=== PATIENT | male | born 1960 | race Caucasian/White ===

== ENCOUNTER 2024-08-29 14:33 | Outpatient (CLI) | payer MEDICARE, SELFPAY ==
--- NOTE | ~2024-08-29 | CT_ITS ---
CT of the Abdomen and Pelvis: Indication: Hematospermia Technique: 2.5 mm axial scans were obtained through the abdomen and pelvis following intravenous adm inistration of 100 cc of Omnipaque 350. Dose reduction technique was used on this scan by utilizing a utomated exposure control and iterative reconstruction technique. The dose-length product (DLP) was 6 75.31 mGy-cm. Findings: Scans through the lung bases are unremarkable. The liver, spleen, pancreas, gallbladder, adrenals and right kidney are within normal limits. 9 mm no nobstructing left renal stone present. There are atherosclerotic calcifications of the aorta. No lym phadenopathy. No bowel obstruction or bowel wall thickening. There is no evidence to suggest acute appendicitis. Images through the pelvis were performed. Urinary bladder unremarkable. Prostate gland is enlarged. Impression: 9 mm nonobstructing left renal stone. Enlarged prostate gland. Reviewed, dictated and finalized at [facility]. Impression: 9 mm nonobstructing left renal stone. Enlarged prostate gland.
--- OUTSIDE RECORDS SUMMARY | 2024-08-29 14:39 | XMS_ITS | Clinical Summary ---
Author Organization [facility] Address [address] [place] [address] Care Team Providers Care Dock Superintendent Name Role Phone Unavailable Primary Care Provider Unavailabl e Source Comments [facility],non-owned Affiliates and Associated Physician Practices is amultiple site organization consisting of ambulatory clinics and hospital sitesin [place], [place], [place] and [place]. This disclosure is being madepursuant to the Care Everywhere program and may not contain all information available regarding this patient. 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 Gender Identity Not on file Sexual Orientation Not on file Plan of Treatment Health Maintenance Due Date Last Done Comments COLOGUARD (AGES 45-75) - COL ON CA SCREENING 1960 COLON MONITORING 1960 COLONOSCOPY - COLON CA SCREENING 1960 CT COLONOGRAPHY - COLON CA SCREENING 1960 Colorectal Cancer Screening 1960 FIT - COLON CA SCREENING 1958 FLEX SIG - COLON CA SCREENING 1958 LIPID TESTING 1960 HEPATITIS C SCREENING 08/13/1976 DTAP/TDAP/TD VACCINES (1 - Tdap) 1977 PNEUMOCOCCAL VACCINE 50+ (1 of 1 - PCV) 2008 ZOSTER VACCINE (1 of 2) 2008 COVID-19 VACCINE ( - 2023-2 5 season) 2023 DEPRESSION SCREENING 02/15/2024 INFLUENZA VACCINE (#1) 2024 Respiratory Syncytial Virus (RSV) Vaccine Pt: or over 60 yrs (1 - 1-dose 75+ series) 2033 HEPATITIS B VACCINE Aged Out No longe r eligible based on patient's age to complete this topic HIB VACCINE Aged Out No longer eligi ble based on patient's age to complete this topic HPV VACCINE Aged Out No longer eligi ble based on patient's age to complete this topic MENINGOCOCCAL (Group B) VACC INE SHARED DECISION-MAKING Aged Out No longer eligibl e based on patient's age to complete this topic MENINGOCOCCAL GROUPS A/C/Y/W VACCINE Aged Out No longer eligible b ased on patient's age to complete this topic Insurance [employer]
--- OUTSIDE RECORDS SUMMARY | 2024-08-29 14:40 | XMS_ITS | Encounter Summary ---
Author Organization [facility] Address [address] [place] [address] Care Team Providers Care Machine Grinder Name Role Phone Unavailable Primary Care Provider Unavailabl e Encounter Details Date Type Department Care Team (Late st Contact Info) Description 08/22/2023 Lab Requisition [facility] - DermPath Lab [address] [place] [id number] Trav Snowden MD [address] [place] [address] Social History Tobacco Use Types Packs/Day Years Used Date Smoking Tobacco: Never Assessed Sex and Gender Information Value Date Recorded Sex Assigned at Not on file 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 Gender Identity Not on file Sexual Orientation Not on file documented as of this encounter Plan of Treatment Not on file documented as of this encounter Procedures Procedure Name Priority Date/Time Associated Diagnosis Comments DERMATOPATHOLOGY Routine 08/22/2023 12:0 0 AM CDT documented in this encounter Results * DERMATOPATHOLOGY (08/22/2023 12:00 AM CDT) Case Report Dermatopathology Report Case: [id number] Authorizing Provider: Trav Snowden MD Collected: 08/22/2023 12:00 AM Ordering Location: [facility] - Received: 08/22/2023 03:22 PM DermPath Lab Pathologist: Jen Carrillo MD Specimens: A) - Skin, crown of scalp B) - Skin, right mid forehead 4:50 PM CDT DERMATOPATHOLOGY LABORATORY Final Diagnosis Specimen A. SKIN, crown of scalp: SUPERFICIAL PERIVASCULAR AND PERIFOLLICULAR LYMPHOCYTIC INFILTRATE (L98.9) (see microscopic description and comment) Specimen B. 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 The specimen consists of a punch biopsy measuring 3x2x4 mm. Jar 0. Specimen B: Received is one formalin filled container labeled with the patient's name and designated right mid forehead. The specimen consists of a punch biopsy measuring 3x3x4 mm. Jar 0. 4:50 PM CDT DERMATOPATHOLOGY LABORATORY Microscopic Description Specimen A. SKIN, crown of scalp: In the dermis, there is a mild perivascular and perifollicular mainly lymphohistiocytic inflammatory infiltrate. Grocott's methenamine silver (GMS) stain highlights rare fungal yeast forms consistent with pityrosporum spp in the stratum corneum. IL-36 fails to highlight the upper epidermis. Additional deeper sections were obtained and reviewed. COMMENT: The histological findings are subtle and non-specific. A early/mild seborrheic dermatitis was considered given the rare yeast forms in the stratum corneum. A mild folliculitis was also considered. The lack of epidermal acanthosis and negative IL-36 staining make a diagnosis of psoriasis unlikely. Specimen B. SKIN, right mid forehead: There is a suppurative folliculitis with numerous hyphae and neutrophils in the follicular infundibulum. A Grocott's methenamine silver (GMS) stain highlights the fungal hyphae. Ki-67 immunohistochemical stain reveals a elevated proliferative index in the lower epidermis. Additional deeper sections were obtained and reviewed. COMMENT: A background actinic keratosis cannot be excluded given mild crowding of the keratinocytes in the lower epidermis and the elevated Ki67 stain in the lower epidermis. 4:50 PM CDT DERMATOPATHOLOGY LABORATORY Disclaimer An external and internal positive and negative controls are appropriate for the histochemical, immunohistochemical and immunofluorescence stain(s) in this case (if any), except where stated explicitly. The performance characteristics of the stain(s) cited in this report were developed and its performance characteristic determined by the Dermatopathology Laboratory at [facility], directed by Dr. Ric Puentes. These tests need not be, and therefore are not, approved by the [place] Food and Drug Administration. The tests are used for clinical purposes. Billing Codes Specimen Charges Stain Charges 35747 42041 1 1 [id number] 1 1 1 1 4 4:50 PM CDT DERMATOPATHOLOGY LABORATORY Embedded Images 4 4:50 PM CDT DERMATOPATHOLOGY LABORATORY Pathology/Cytology TISSUE SPECIMEN FROM SKIN / Unknown 08/22/2023 08/22/2023 3:22 PM CDT Miscellaneous samples (specimen) TISSUE SPECIMEN FROM SKIN / Unknown 08/22/2023 08/22/2023 3:22 PM CDT us Trav Snowden MD LAB - PATHOLOGY/CYTOLOGY ORDERAB LES Final Result DERMATOPATHOLOGY LABORATORY [facility] - Department of Dermatology [facility] [address] [place] [address], [address] [phone] documented in this encounter Visit Diagnoses Not on filedocumented in this encounter
--- OUTSIDE RECORDS SUMMARY | 2024-08-29 14:40 | XMS_ITS ---
Author Organization [facility] [employer] [place] ([address]) Address [address] [place] [address] Care Team Providers Care Miner Pick Name Role Phone CostaMaurice Primary Care Provider Unavailabl Justa Alonzo Unavailable [phone] [employer], Provider Unavailable Unavailab le REASON FOR VISIT [facility] Conversion Encounter Medications Medication SIG (Take, Route, Frequency, Duration) Notes Start Date End Date Status Eliquis 5 MG as directed orally 2 times a day Active SIT (TRADITIONAL) VARIABLE PER SCHEDULE SC PER SCHEDULE *Please review for potential replacement for e-prescription and drug interaction check* Not-Taking Azelastine HCl 137 MCG/SPRAY 2 spray(s) intranasally 2 times a day; Duration: 30 days Active Atorvastatin Calcium 10 MG 1 tab(s) orally once a day Active Metoprolol Succinate ER 25 MG 1 tab(s) orally once a day Not-Taking NASAL WASHES N/A DIRECTED INTRANASALLY NEEDED *Please review for potential replacement for e-prescription and drug interaction check* Active Cetirizine HCl 10 2 TAB(S) ORALLY ONCE A DAY; Duration: 90 DAYS *Please review and pick [facility]. If intended option is not shown, discontinue and re-order from Quick Search* Active Losartan Potassium 25 MG 1 tab(s) orally once a day Active Magnesium Oxide 400 MG 1 tab(s) orally once a day Active Singulair 10 MG 1 tab(s) orally once a day (in the evening); Duration: 90 days Active Ketotifen Fumarate 0.025% 1 GTT IN EACH AFFECTED EYE EVERY 8 HOURS *Please review and pick correct strength-formula tion from [employer] options. If intended option is not shown, discontinue and re-order from Quick Search* Active dilTIAZem HCl ER Beads 120 MG 1 cap(s) orally once a day Active EpiPen 2-Hung 0.3 MG/0.3ML 0.3 mg intramuscularly once Not-Taking Encounters Encounter Location Date Provider Diagnosis [address] [address] 07/30/2023 Provider [place] Other chronic allergic conjunctivitis H10.45 and Allergic rhinitis due to pollen J30.1 Assessments Encounter Date Diagnosis (ICD Code) Assessment Notes Treatment Notes Treatment Clinical Notes Section Notes 07/30/2023 Other chronic allergic conjunctivitis (ICD-10 - H10.45) 07/30/2023 Allergic rhinitis due to pollen (ICD-10 - J30.1) Plan Of Treatment Medication Medication Name Sig Start Date Stop Date Notes Azelastine HCl 137 MCG/SPRAY 2 spray(s) intranasally 2 times a day; Duration: 30 days NASAL WASHES N/A DIRECTED INTRANASALLY NEEDED *Please review fo r potential replacement for e-prescription and drug interaction check* Cetirizine HCl 10 2 TAB(S) ORALLY ONCE A DAY; Duration: 90 DAYS *Please review an d pick correct strength-formulation from [facility] options. If intended option is not shown, discontinue and re-order from Quick Search* Singulair 10 MG 1 tab(s) orally once a day (in the evening); Duration: 90 days Ketotifen Fumarate 0.025% 1 GTT IN EACH AFFECTED EYE EVERY 8 HOURS *Please review and pick correct strength-formulation from [employer] options. If intended option is not shown, discontinue and re-order from Quick Search* Progress Notes * Aliza WAHLOB:1960 (64 yo M)Acc No.[id number]:07/30/2023 Patient: Ger ROBB Provider: Reina Mcpherson :1960 A ge:62 Y S ex:Male Date:07/30/2023 Address:[address] [place], [place] Pcp:Maurice Costa Subjective: * Chief Complaints: * [facility] . [facility]. * Medical History: * Medications: T aking dilTIAZem HCl ER Beads 120 MG Capsule Extended Release 24 Hour 1 cap(s) orally once a day , Taking Magnesium Oxide 400 MG Tablet 1 tab(s) orally once a day , Taking Losartan Potassium 25 MG Tablet 1 tab(s) orally once a day , Taking Eliquis 5 MG Tablet as directed orally 2 times a day , Taking Atorvastatin Calcium 10 MG Tablet 1 tab(s) orally once a day , Not-Taking/PRN Metoprolol Succinate ER 25 MG Tablet Extended Release 24 Hour 1 tab(s) orally once a day , Not-Taking/PRN SIT (TRADITIONAL) VARIABLE SEE RECORD PER SCHEDULE SC PER SCHEDULE , Notes to Pharmacist: *Please review for potential replacement for e-prescription and drug interaction check*, Not-Taking/PRN EpiPen 2-Hung 0.3 MG/0.3ML Solution Auto-injector 0.3 mg intramuscularly once Objective: * Vitals: Assessment: * Assessment: 1. A llergic rhinitis due to pollen - J30.1 (Primary) 2 . O ther chronic allergic conjunctivitis - H10.45 Plan: * Treatment: 2. O ther chronic allergic conjunctivitis Continue Ketotifen Fumarate SOLUTION, 0.025%, 1 GTT, IN EACH AFFECTED EYE, EVERY 8 HOURS, Notes to Pharmacist: *Please review and pick correct strength-formulation from [facility] options. If intended option is not shown, discontinue and re-order from Quick Search*. * Billing Information: * Visit Code: * Procedure Codes: * Electronic signature of Zaida SAMPSON-Migration on 08/29/2024 at 02:40 PM CDT Sign off status: Pending * Provider: Reina crain Migration Date: 0 07/30/2023 Generated for Guera swift/Eliel/Niki on: 08/29/2024 02:40 PM CDT
--- OUTSIDE RECORDS SUMMARY | 2024-08-29 14:40 | XMS_ITS | Data Portability ---
Author Organization [facility]-crow[facility], Main Office Address [address] [place] [address] Assessment Encounter Date Assessment Date Assessment LastModified by Organization Details LastModified Time 05/18/2022 05/18/2022 Low-fat diet continue current therapy he will follow-up in 6 months colonoscopy ordered as well as blood work [email or web address] Not available 06/20/2022 21:33:18 11/16/2022 11/16/2022 Continue current therapy follow-up in 6 months [email or web address] Not available 11/28/2022 15:54:43 12/30/2022 12/30/2022 Intussusception resolved AFib now in sinus mechanism see me back in 6 months [email or web address] Not available 01/04/2023 11:44:17 Plan of Treatment Reminders Order Date Submit Date Provider Last Modified By Organization Details Last Modified Time Details Appointments None recorded. Lab PSA, total, serum or plasma 2022 023 [facility] (Lab), [address] [place], [address], 3 17:00:29 CBC w/ auto diff 2022 023 [email or web address] [facility] (Lab), [address] [place], [address], 3 15:23:00 CMP, serum or plasma 2022 023 [facility] (Lab), [address] [place], [address], 3 16:48:45 lipid panel, serum 2022 023 STEVIE [facility] (Lab), [address] [place], [address], 16:48:47 Referral None recorded. Procedures colonoscopy screening (PROC) 2022 023 [email or web address] Yary Isbell MD, [address] [facility], [place], [address], 14:17:52 Surgeries None recorded. Imaging None recorded. Medication Orders None recorded. Patient TargetsNo targets recorded. Patient InstructionsNo instructions recorded. Reason for Referral None Reported. Results Created Date Observation Date Name Description Value Unit Range Abnormal Flag Note LastModifiedBy Organization Detail LastModifiedTime 05/19/1905/18/2022 CBC/C OMPLE TE BLD COUNT W/DIF F white blood cells 7.3 x10'3 /uL 4.2-10 .8 Not Available [facility] (Lab) [address] [place], [address], 05/18/2022 14:43:41 05/19/19 23 05/18/2022 CBC/C OMPLE TE BLD COUNT W/DIF F red blood cells 5.07 x10'6 /uL 4.10-5 .80 Not Available [facility] (Lab) [address] [place], [address], 05/18/2022 14:43:41 05/19/19 23 05/18/2022 CBC/C OMPLE TE BLD COUNT W/DIF F hemoglobin 16.2 g/dL 13.2-1 7.0 Not Available [facility] (Lab) [address] [place], [address], 05/18/2022 14:43:41 05/19/19 23 05/18/2022 CBC/C OMPLE TE BLD COUNT W/DIF F hematocrit 49.2 % 39.3-5 0.0 Not Available [facility] (Lab) [address] [place], [address], 05/18/2022 14:43:41 05/19/19 23 05/18/2022 CBC/C OMPLE TE BLD COUNT W/DIF F mean red cell volume 97.0 fL 80.0-9 7.0 Not Available [facility] (Lab) [address] [place], [address], 05/18/2022 14:43:41 05/19/19 23 05/18/2022 CBC/C OMPLE TE BLD COUNT W/DIF F mean red cell hemoglobin 32.0 pg 27.0-3 3.0 Not Available [facility] (Lab) [address] [place], [address], 05/18/2022 14:43:41 05/19/19 23 05/18/2022 CBC/C OMPLE TE BLD COUNT W/DIF F mean RBC HGB concentratio n 32.9 g/dL 31.0-3 6.0 Not Available [facility] (Lab) [address] [facility] [place], [address], 05/18/2022 14:43:41 05/19/19 23 05/18/2022 CBC/C OMPLE TE BLD COUNT W/DIF F red cell distribution width 13.0 % 11.8-1 5.5 Not Available [facility] (Lab) [address] [place], [address], 05/18/2022 14:43:41 05/19/19 23 05/18/2022 CBC/C OMPLE TE BLD COUNT W/DIF F platelets 274 x10'3 /uL 150-40 0 Not Available [facility] (Lab) [address] [place], [address], 05/18/2022 14:43:41 05/19/19 23 05/18/2022 CBC/C OMPLE TE BLD COUNT W/DIF F mean platelet volume 9.6 fL 9.0-12 .4 Not Available [facility] (Lab) [address] [place], [address], 05/18/2022 14:43:41 05/19/19 23 05/18/2022 CBC/C OMPLE TE BLD COUNT W/DIF F neutrophils 62.5 % 39.0-7 2.0 Not Available [facility] (Lab) [address] [place], [address], 05/18/2022 14:43:41 05/19/19 23 05/18/2022 CBC/C OMPLE TE BLD COUNT W/DIF F lymphocytes 25.3 % 16.0-4 7.0 Not Available [facility] (Lab) [address] [place], [address], 05/18/2022 14:43:41 05/19/19 23 05/18/2022 CBC/C OMPLE TE BLD COUNT W/DIF F monocytes 9.6 % 5.0-12 .0 Not Available [facility] (Lab) [address] [place], [address], 05/18/2022 14:43:41 05/19/19 23 05/18/2022 CBC/C OMPLE TE BLD COUNT W/DIF F eosinophils 1.6 % 1.0-7. 0 Not Available [facility] (Lab) [address] [place], [address], 05/18/2022 14:43:41 05/19/19 23 05/18/2022 CBC/C OMPLE TE BLD COUNT W/DIF F basophils 0.7 % 0.0-2. 0 Not Available [facility] (Lab) [address] [place], [address], 05/18/2022 14:43:41 05/19/19 23 05/18/2022 CBC/C OMPLE TE BLD COUNT W/DIF F immature granulocytes 0.3 % 0.00-0 .50 Not Available [facility] (Lab) [address] [place], [address], 05/18/2022 14:43:41 05/19/1905/18/2022 CBC/C OMPLE TE BLD COUNT W/DIF F neutrophils, absolute count 4.56 x10'3 /uL 1.5-8. 0 Not Available [facility] (Lab) [address] [place], [address], 05/18/2022 14:43:41 05/19/19 23 05/18/2022 CBC/C OMPLE TE BLD COUNT W/DIF F lymphocytes, absolute count 1.85 x10'3 /uL 1.07-3 .43 Not Available [facility] (Lab) [address] [place], [address], 05/18/2022 14:43:41 05/19/1905/18/2022 CBC/C OMPLE TE BLD COUNT W/DIF F monocytes, absolute count 0.70 x10'3 /uL 0.29-0 .99 Not Available [facility] (Lab) [address] [place], [address], 05/18/2022 14:43:41 05/19/19 23 05/18/2022 CBC/C OMPLE TE BLD COUNT W/DIF F eosinophils, absolute count 0.12 x10'3 /uL 0.02-0 .53 Not Available [facility] (Lab) [address] [place], [address], 05/18/2022 14:43:41 05/19/19 23 05/18/2022 CBC/C OMPLE TE BLD COUNT W/DIF F basophils, absolute count 0.05 x10'3 /uL 0.01-0 .08 Not Available [facility] (Lab) [address] [place], [address], 05/18/2022 14:43:41 05/19/19 23 05/18/2022 CBC/C OMPLE TE BLD COUNT W/DIF F immature granulocytes ,absolute 0.02 x10'3 /uL 0.00-0 .05 Not Available [facility] (Lab) [address] [place], [address], 05/18/2022 14:43:41 05/19/19 23 05/18/2022 CBC/C OMPLE TE BLD COUNT W/DIF F nucleated red blood cells 0.0 % -0 Not Available [facility] (Lab) [address] [place], [address], 05/18/2022 14:43:41 05/19/19 23 05/18/2022 CBC/C OMPLE TE BLD COUNT W/DIF F NRBC# 0.00 x10'3 /uL Not Available [facility] (Lab) [address] [place], [address], 05/18/2022 14:43:41 05/19/19 23 05/18/2022 COMPR EHENS SALINA METAB OLIC PANEL sodium 139 mmol/ L 137-14 5 Not Available [facility] (Lab) [address] [place], [address], 05/18/2022 16:48:45 05/19/19 23 05/18/2022 COMPR EHENS SALINA METAB OLIC PANEL potassium 4.7 mmol/ L 3.5-5. 1 Not Available [facility] (Lab) [address] [place], [address], 05/18/2022 16:48:45 05/19/19 23 05/18/2022 COMPR EHENS SALINA METAB OLIC PANEL chloride 104 mmol/ L 98-107 Not Available [facility] (Lab) [address] [place], [address], 05/18/2022 16:48:45 05/19/19 23 05/18/2022 COMPR EHENS SALINA METAB OLIC PANEL carbon dioxide 27 mmol/ L 22-30 Not Available [facility] (Lab) [address] [place], [address], 05/18/2022 16:48:45 05/19/19 23 05/18/2022 COMPR EHENS SALINA METAB OLIC PANEL anion gap 12.7 mmol/ L 14-22 low Not Available [facility] (Lab) [address] [place], [address], 05/18/2022 16:48:45 05/19/19 23 05/18/2022 COMPR EHENS SALINA METAB OLIC PANEL glucose 92 mg/dL 70-99 Not Available [facility] (Lab) [address] [place], [address], 05/18/2022 16:48:45 05/19/19 23 05/18/2022 COMPR EHENS SALINA METAB OLIC PANEL BUN 10 mg/dL 8-19 Not Available [facility] (Lab) [address] [place], [address], 05/18/2022 16:48:45 05/19/19 23 05/18/2022 COMPR EHENS SALINA METAB OLIC PANEL creatinine 0.82 mg/dL 0.66-1 .25 Not Available [facility] (Lab) [address] [place], [address], 05/18/2022 16:48:45 05/19/19 23 05/18/2022 COMPR EHENS SALINA METAB OLIC PANEL GFR >60 Refer ence Range : [place] ge GFR Healt hy Adult : >60 mL/mi n/1.7 3 m2 Chron ic Kidne y Disea se: 15-60 mL/mi n/1.7 3 m2 Kidne y Failu re: <15/m L/min /1.73 m2 www.n iddk. nih.g ov The MDRD study equat ion has not been valid ated in child primitivo <18 years of age; pregn ant women ; the elder ly >85 years of age; or in some racia l or ethni c subgr oups, such as Hispa nics. Outsi de the valid ated zak eters , estim ated GFR is less accur ate, requi ring clini carlota judgm ent on a case- by-ca se basis . Clini carlota inter preta tion for other races and ages must be made by the clini rony. The MDRD study equat ion has not been valid ated for the evalu ation of serum creat inine relat ed to nutri [place] l statu s or medic ation usage . For perso ns <18 years of age, a pedia tric GFR calcu lator is avail able on the [facility] websi te: https :[email or web address] garcia.ginny sanchez.o jesus/pr ofess ional s/kdo qi/gf r_cal culat or Not Available [facility] (Lab) [address] [place], [address], 05/18/2022 16:48:45 05/19/19 23 05/18/2022 COMPR EHENS SALINA METAB OLIC PANEL alkaline phosphatase 62 U/L 38-126 Not Available [facility] (Lab) [address] [place], [address], 05/18/2022 16:48:45 05/19/19 23 05/18/2022 COMPR EHENS SALINA METAB OLIC PANEL alanine aminotransfe rase 30 U/L 0-50 Not Available [facility] (Lab) [address] [place], [address], 05/18/2022 16:48:45 05/19/19 23 05/18/2022 COMPR EHENS SALINA METAB OLIC PANEL aspartate aminotransfe rase 25 U/L 15-46 Not Available [facility] (Lab) [address] [place], [address], 05/18/2022 16:48:45 05/19/19 23 05/18/2022 COMPR EHENS SALINA METAB OLIC PANEL bilirubin, total 1.10 mg/dL 0.20-1 .30 Not Available [facility] (Lab) [address] [place], [address], 05/18/2022 16:48:45 05/19/19 23 05/18/2022 COMPR EHENS SALINA METAB OLIC PANEL calcium 9.5 mg/dL 8.4-10 .2 Not Available [facility] (Lab) [address] [place], [address], 05/18/2022 16:48:45 05/19/19 23 05/18/2022 COMPR EHENS SALINA METAB OLIC PANEL total protein 6.9 g/dL 6.3-8. 2 Not Available [facility] (Lab) [address] [facility] [place], [address], 05/18/2022 16:48:45 05/19/19 23 05/18/2022 COMPR EHENS SALINA METAB OLIC PANEL albumin 4.3 g/dL 3.0-4. 4 Not Available [facility] (Lab) [address] [place], [address], 05/18/2022 16:48:45 05/19/19 23 05/18/2022 COMPR EHENS SALINA METAB OLIC PANEL globulin 2.6 g/dL 2.6-4. 2 Not Available [facility] (Lab) [address] [place], [address], 05/18/2022 16:48:45 05/19/19 23 05/18/2022 COMPR EHENS SALINA METAB OLIC PANEL A/G ratio 1.7 ratio 1.0-2. 0 Not Available [facility] (Lab) [address] [place], [address], 05/18/2022 16:48:45 05/19/19 23 05/18/2022 LIPID PANEL cholesterol 144 mg/dL 140-19 9 NIH LEIDY NSUS RECOM MENDA TION FOR HECTOR STERO L: ADULT CHILD LOW RISK: <200 <170 BORDE RLINE : <200- 239 ----- HIGH RISK: >240 >200 Not Available [facility] (Lab) [address] [place], [address], 05/18/2022 16:48:47 05/19/19 23 05/18/2022 LIPID PANEL triglyceride s 118 mg/dL 0-150 NIH LEIDY NSUS REPOR T RECOM MENDA TION FOR TRIGL YCERI NEHA: ADULT CHILD LOW RISK: <150 ----- BODER LINE: 150-1 99 ----- HIGH RISK: >200 ----- Not Available [facility] (Lab) [address] [place], [address], 05/18/2022 16:48:47 05/19/19 23 05/18/2022 LIPID PANEL HDL cholesterol 43 mg/dL 40- Not Available [facility] (Lab) [address] [place], [address], 05/18/2022 16:48:47 05/19/19 23 05/18/2022 LIPID PANEL LDL cholesterol, calculated 77 mg/dL 0-130 NIH LEIDY NSUS REPOR T RECOM MENDA TIONS FOR LDL: ADULT CHILD LOW RISK <130 <110 (OPTI MAL LDL) <100 ----- BORDE RLINE : 130-1 59 ----- HIGH RISK: >160 >130 A TRIGL YCERI DE RESUL T >400 INVAL IDATE S THE CALCU LATIO N FOR LDL FRACT IONAT ION - THE LDL RESUL T WILL NOT BE REPOR LOGAN. Not Available [facility] (Lab) [address] [place], [address], 05/18/2022 16:48:47 05/19/19 23 05/18/2022 PSA SCREE N PSA medicare screen 2.45 NG/mL 0.00-4 .00 Not Available [facility] (Lab) [address] [place], [address], 05/18/2022 17:00:29 01/20/20 23 01/19/2023 COMPR EHENS SALINA METAB OLIC PANEL sodium 140 mmol/ L 137-14 5 Not Available [facility] (Lab) [address] [place], [address], 01/19/2023 17:57:09 01/20/20 23 01/19/2023 COMPR EHENS SALINA METAB OLIC PANEL potassium 4.5 mmol/ L 3.5-5. 1 Not Available [facility] (Lab) [address] [place], [address], 01/19/2023 17:57:09 01/20/20 23 01/19/2023 COMPR EHENS SALINA METAB OLIC PANEL chloride 105 mmol/ L 98-107 Not Available [facility] (Lab) [address] [place], [address], 01/19/2023 17:57:09 01/20/20 23 01/19/2023 COMPR EHENS SALINA METAB OLIC PANEL carbon dioxide 29 mmol/ L 22-30 Not Available [facility] (Lab) [address] [place], [address], 01/19/2023 17:57:09 01/20/20 23 01/19/2023 COMPR EHENS SALINA METAB OLIC PANEL anion gap 10.5 mmol/ L 14-22 low Not Available [facility] (Lab) [address] [place], [address], 01/19/2023 17:57:09 01/20/20 23 01/19/2023 COMPR EHENS SALINA METAB OLIC PANEL glucose 76 mg/dL 70-99 Not Available [facility] (Lab) [address] [place], [address], 01/19/2023 17:57:09 01/20/20 23 01/19/2023 COMPR EHENS SALINA METAB OLIC PANEL BUN 9 mg/dL 8-19 Not Available [facility] (Lab) [address] [place], [address], 01/19/2023 17:57:09 01/20/20 23 01/19/2023 COMPR EHENS SALINA METAB OLIC PANEL creatinine 0.78 mg/dL 0.66-1 .25 Not Available [facility] (Lab) [address] [place], [address], 01/19/2023 17:57:09 01/20/20 23 01/19/2023 COMPR EHENS SALINA METAB OLIC PANEL GFR >60 Refer ence Range : [place] ge GFR Healt hy Adult : >60 mL/mi n/1.7 3 m2 Chron ic Kidne y Disea se: 15-60 mL/mi n/1.7 3 m2 Kidne y Failu re: <15/m L/min /1.73 m2 www.n iddk. nih.g ov The MDRD study equat ion has not been valid ated in child primitivo <18 years of age; pregn ant women ; the elder ly >85 years of age; or in some racia l or ethni c subgr oups, such as Hismn nics. Outsi de the valid ated zak eters , estim ated GFR is less accur ate, requi ring clini carlota judgm ent on a case- by-ca se basis . Clini carlota inter preta tion for other races and ages must be made by the clini rony. The MDRD study equat ion has not been valid ated for the evalu ation of serum creat inine relat ed to nutri [place] l statu s or medic ation usage . For perso ns <18 years of age, a pedia tric GFR calcu lator is avail able on the F websi te: https ://reina w.kid laura.o rg/pr ofess ional s/kdo qi/gf r_cal culat or Not Available [facility] (Lab) [address] [place], [address], 01/19/2023 17:57:09 01/20/20 23 01/19/2023 COMPR EHENS SALINA METAB OLIC PANEL alkaline phosphatase 66 U/L 38-126 Not Available [facility] (Lab) [address] [place], [address], 01/19/2023 17:57:09 01/20/20 23 01/19/2023 COMPR EHENS SALINA METAB OLIC PANEL alanine aminotransfe rase 24 U/L 0-50 Not Available [facility] (Lab) [address] [place], [address], 01/19/2023 17:57:09 01/20/20 23 01/19/2023 COMPR EHENS SLAINA METAB OLIC PANEL aspartate aminotransfe rase 22 U/L 15-46 Not Available [facility] (Lab) [address] [place], [address], 01/19/2023 17:57:09 01/20/20 23 01/19/2023 COMPR EHENS SALINA METAB OLIC PANEL bilirubin, total 0.80 mg/dL 0.20-1 .30 Not Available [facility] (Lab) [address] [place], [address], 01/19/2023 17:57:09 01/20/20 23 01/19/2023 COMPR EHENS SALINA METAB OLIC PANEL calcium 9.8 mg/dL 8.4-10 .2 Not Available [facility] (Lab) [address] [place], [address], 01/19/2023 17:57:09 01/20/20 23 01/19/2023 COMPR EHENS SALINA METAB OLIC PANEL total protein 6.7 g/dL 6.3-8. 2 Not Available [facility] (Lab) [address] [place], [address], 01/19/2023 17:57:09 01/20/20 23 01/19/2023 COMPR EHENS SALINA METAB OLIC PANEL albumin 4.0 g/dL 3.0-4. 4 Not Available [facility] (Lab) [address] [place], [address], 01/19/2023 17:57:09 01/20/20 23 01/19/2023 COMPR EHENS SALINA METAB OLIC PANEL globulin 2.7 g/dL 2.6-4. 2 Not Available [facility] (Lab) [address] [place], [address], 01/19/2023 17:57:09 01/20/20 23 01/19/2023 COMPR EHENS SALINA METAB OLIC PANEL A/G ratio 1.5 ratio 1.0-2. 0 Not Available [facility] (Lab) [address] [place], [address], 01/19/2023 17:57:09 01/20/20 23 01/19/2023 MAGNE SIUM magnesium 1.8 mg/dL 1.6-2. 3 Not Available [facility] (Lab) [address] [place], [address], 01/19/2023 17:57:13 01/18/20 23 01/17/2023 cardi ac monit or No observ ation record ed. [email or web address] [facility] [address], [place], [address], 02/19/2023 11:53:07 01/18/20 23 01/17/2023 cardi ac monit or No observ ation record ed. [email or web address] [facility] [address], [place], [address], 02/19/2023 11:53:08 02/12/20 23 02/11/2023 NM, myoca rdial perfu j luis scan No observ ation record ed. [facility] [address], [place], [address], 02/15/2023 15:50:52 02/17/19 24 02/11/2023 home sleep study No observ ation record ed. [facility] [address], [place], [address], 02/18/2023 08:44:21 02/22/19 24 02/22/2023 cardi ac monit or No observ ation [facility] ed. [facility] [address], [place], [address], 02/23/2023 12:16:20 Result Notes None recorded. Problems Name Problem SNOMED Code Status Onset Date Resolution Date Notes Provider Name and Address Organization Details Recorded Time Benign essential hypertension 2341450 Active Not Available [facility] 3 01:42:13 Pure hypercholeste rolemia 224899986 Active Not Available [facility] 3 01:42:13 Chronic rhinitis 01879043 Active Not Available [facility] 3 01:42:13 Intussuscepti on of intestine 82889223 Active 2022 Not Available [facility] 3 01:42:13 Problem Notes None recorded. Procedures Surgical History Date Name Laterality Status Provider Name and Address Organization Details Recorded Time excision of lipoma completed Not Available [facility] 04/14/2022 05:56:38 nasal septoplasty completed Not Available [facility] 04/14/2022 05:56:38 Imaging Results None recorded. Procedure Notes None recorded. Medical Equipment None Reported. Allergies No known drug allergies Medications Name Sig Start Date Stop Date Status Note LastModified by Organization Details LastModified Time amoxicillin 500 mg capsule TK ONE C PO Q 8 H 06/12 completed Not Available Not Available Not Available doxycycline hyclate 100 mg capsule Take 1 capsule twice a day by oral route for 10 days. active Not Available Not Available No t Available cetirizine 10 mg tablet TAKE 2 TABLETS BY MOUTH ONCE DAILY active Not Available Not Available No t Available atorvastati n 10 mg tablet TAKE 1 TABLET BY MOUTH EVERY DAY active Not Available Not Available No t Available hydrocodone 5 mg-acetamin ophen 325 mg tablet TK 1 T PO Q 6 HOURS PRF PAIN 03/19 completed Not Available Not Available Not Available Zithromax Z-Hung 250 mg tablet 2 tabs first day, then 1 till completed 03/19 completed Not Available Not Available Not Available penicillin V potassium 500 mg tablet TK 1 T PO QID UNTIL GONE 03/19 completed Not Available Not Available Not Available acetaminoph en 300 mg-codeine 30 mg tablet TK 1 T PO Q 4 H PRN P 06/12 completed Not Available Not Available Not Available amlodipine 5 mg tablet TAKE 1 TABLET BY MOUTH EVERY DAY 12/30 completed Not Available Not Available Not Available ciprofloxac in 500 mg tablet 10/21 completed Not Available Not Available Not Available Nasacort AQ 55 mcg nasal spray aerosol 2 sprays each nostril daily 03/19 completed Not Available Not Available Not Available aspirin 81 mg tablet,moncho yed release TAKE 1 TABLET BY MOUTH EVERY DAY active Not Available Not Available No t Available quinapril 40 mg tablet active Not Available Not Available Not Available prednisolon e acetate 1 % eye drops,suspe nsion INSTILL ONE DROP INTO AFFECTED EYE TWICE DAILY 11/30 completed Not Available Not Available Not Available magnesium oxide 400 mg (241.3 mg magnesium) tablet TAKE 1 TABLET BY MOUTH TWICE DAILY active Not Available Not Available No t Available erythromyci n 5 mg/gram (0.5 %) eye ointment 02/16 completed Not Available Not Available Not Available tobramycin 0.3 % eye drops INSTILL 2 DROPS INTO BOTH EYE EVERY 4 HOURS FOR 5 DAYS 02/27 completed Not Available Not Available Not Available omeprazole 20 mg capsule,del ayed release TAKE 1 CAPSULE BY MOUTH EVERY DAY ONE HOUR BEFORE DINNER 11/30 completed Not Available Not Available Not Available lisinopril 20 mg-hydrochl orothiazide 25 mg tablet TAKE ONE TABLET BY MOUTH TWICE DAILY 11/30 completed Not Available Not Available Not Available montelukast 10 mg tablet TAKE 1 TABLET BY MOUTH EVERY DAY IN THE EVENING active Not Available Not Available No t Available quinapril 20 mg tablet 03/28 completed Not Available Not Available Not Available metoprolol succinate ER 25 mg tablet,exte nded release 24 hr TAKE 1 TABLET BY MOUTH EVERY DAY active Not Available Not Available No t Available azelastine 137 mcg (0.1 %) nasal spray USE 2 SPRAYS IN EACH NOSTRIL TWICE DAILY active Not Available Not Available No t Available levofloxaci n 500 mg tablet 03/28 completed Not Available Not Available Not Available cefdinir 300 mg capsule TAKE 1 CAPSULE BY MOUTH EVERY 12 HOURS FOR 10 DAYS 12/30 completed Not Available Not Available Not Available fluticasone propionate 50 mcg/actuati on nasal spray,suspe nsion USE 2 SPRAYS IN EACH NOSTRIL TWICE DAILY 11/30 completed Not Available Not Available Not Available Cartia XT 180 mg capsule,ext ended release TAKE 1 CAPSULE BY MOUTH EVERY DAY active Not Available Not Available No t Available Eliquis 5 mg tablet TAKE 1 TABLET BY MOUTH TWICE DAILY active Not Available Not Available No t Available Vitals Date Recorded Body height Body mass index (BMI) Body weight Body temperature Heart rate Systolic And Diastolic Provider Name and Address Organization Details Last Updated DateTime 3 180.34 cm 27.6 kg/m2 86740.2 9 g 98.2 [degF] 68 /min 124/88 mm[Hg] BRANDO Hedrick [facility] [employer] [facility] 3 11:51:50 Date Recorded Body mass index (BMI) Body height Heart rate Body temperature Body weight Systolic And Diastolic Provider Name and Address Organization Details Last Updated DateTime 2 28.2 kg/m2 180.34 cm 72 /min 98.2 [degF] 98336.6 6 g 130/72 mm[Hg] Not Available [facility] 3 06:00:23 Date Recorded Body height Body mass index (BMI) Body weight Body temperature Heart rate Systolic And Diastolic Provider Name and Address Organization Details Last Updated DateTime 3 180.34 cm 28.5 kg/m2 47244.8 4 g 97.9 [degF] 69 /min 132/90 mm[Hg] BRANDO Hedrick [facility] [employer] [facility] 3 12:01:37 Date Recorded Body mass index (BMI) Body height Heart rate Body temperature Body weight Systolic And Diastolic Provider Name and Address Organization Details Last Updated DateTime 2 28 kg/m2 180.34 cm 84 /min 97.2 [degF] 69769.0 7 g 122/70 mm[Hg] Not Available [facility] 3 06:00:23 Date Recorded Body height Body mass index (BMI) Body weight Body temperature Heart rate Systolic And Diastolic Provider Name and Address Organization Details Last Updated DateTime 3 180.34 cm 28.2 kg/m2 85889.6 6 g 98.1 [degF] 62 /min 124/80 mm[Hg] BRANDO [place] - [facility] 3 12:13:34 Social History Question Answer Notes LastModified by Organizat ion Details LastModified Time Tobacco Smoking Status Never Smoker Not Available [employer] 04/14/2022 05:55:02 Do You Have An Advance Directive? No MIGRATION.[id number] Information not available 04/14/2022 What Is Your Level Of Caffeine Consumption? Occasional MIGRATION.47866 96514 Information not available 04/14/2022 In The 14 Days Before Symptom Onset, Have You Had Close Contact With A Laboratory-confi rmed COVID-19 While That Case Was Ill? No MIGRATION.69114 53728 Information not available 04/14/2022 In The 14 Days Before Symptom Onset, Have You Had Close Contact With A Person Who Is Under Investigation For COVID-19 While That Person Was Ill? No MIGRATION.93900 [id number] Information not available 04/14/2022 What Type Of Diet Are You Following? REGULAR MIGRATION.17837 78365 Information not available 04/14/2022 What Is The Highest Grade Or Level Of School You Have Completed Or The Highest Degree You Have Received? [id number] MIGRATION.13484 32457 Information not available 04/14/2022 Have There Been Any Changes To Your Family Or Social Situation? No MIGRATION.43736 41076 Information not available 04/14/2022 What Is The Fluoride Status Of Your Home? Unknown MIGRATION.06418 41933 Information not available 04/14/2022 Are There Any Guns Present In Your Home? No MIGRATION.37003 56520 Information not available 04/14/2022 Do You Use Insect Repellent Routinely? No MIGRATION.07639 32367 Information not available 04/14/2022 Where Do You Live? [place] MIGRATION.47422 16710 Information not available 04/14/2022 Do You Have A Medical Power Of Supervisor Production Managing? No MIGRATION.00494 80510 Information not available 04/14/2022 What Was The Date Of Your Most Recent Tobacco Screening? 12/30/2022 [email or web address] Information not available 12/30/2022 Have You Ever Been Counseled For Unhealthy Alcohol Use? No MIGRATION.05407 74722 Information not available 04/14/2022 Do You Have Any Pets? Yes MIGRATION.50051 29714 Information not available 04/14/2022 What Is Your Relationship Status? MIGRATION.10435 03290 Information not available 04/14/2022 Do You Use Your Seat Belt Or Car Seat Routinely? No MIGRATION.65484 15281 Information not available 04/14/2022 Do You Have Smoke And Carbon Monoxide Detectors In Your Home? Yes MIGRATION.07042 95914 Information not available 04/14/2022 Are You Passively Exposed To Smoke? No MIGRATION.75262 96590 Information not available 04/14/2022 Are There Any Smokers In Your House? No MIGRATION.64534 92490 Information not available 04/14/2022 What Types Of Sporting Activities Do You Participate In? None MIGRATION.91240 42294 Information not available 04/14/2022 Do You Use Sunscreen Routinely? No MIGRATION.50637 87005 Information not available 04/14/2022 Has Tobacco Cessation Counseling Been Provided? No Not Needed-ne pauly Smoked MIGRATION.65848 65008 Information not available 04/14/2022 Have You Recently Traveled Abroad? No MIGRATION.46183 10127 Information not available 04/14/2022 Do You Have Any Dietary Restrictions? No MIGRATION.04239 13577 Information not available 04/14/2022 Sex: Male Functional Status Question Answer Note LastModified by Organizat ion Details LastModified Time Do you use any illicit or recreational drugs? No MIGRATION.7938759 026 Information not available 04/14/2022 Do you or have you ever used any other forms of tobacco or nicotine? No MIGRATION.4744944 026 Information not available 04/14/2022 What is your level of alcohol consumption? 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 Occasional MIGRATION.2382408 026 Information not available 04/14/2022 Mental Status Question Answer Note LastModified by OrganPerformance Indicatorat ion Details LastModified Time Do you feel stressed (tense, restless, nervous, or anxious, or unable to sleep at night)? [id number] MIGRATION.[id number] 6 Information not available 04/14/2022 Family History Relationship Description Onset Age of this Age Resolved Age Notes LastModified by Organization Details LastModified Time Father Heart disease MIGRATION.[id number] Not available 04/14/2022 05:56:41 Mother Heart disease MIGRATION.516 [id number] Not available 04/14/2022 05:56:41 Medical History Condition Response NERVE DISEASE N BLINDNESS N RHEUMATIC FEVER N KIDNEY STONES N BLADDER PROBLEMS N MRSA N OTHER # 1 Y POLIO N LUNG DISEASE/DISORDER N HISTORY OF DRUG ABUSE N COPD N RADIATION / CHEMOTHERAPY N Other # 2 N BLOOD DISEASES N EAR OR HEARING PROBLEMS N MUMPS N SHINGLES N BOWEL PROBLEMS N DEPRESSION (INCLUDING POST ) N STROKE/TIA N ULCERS N BENIGN PROSTATIC HYPERPLASIA N MEASLES N HYPOTENSION N MYOCARDIAL INFARCTION N OBESITY N GERD/NAUSEA N ANEURYSM N URINARY/BLADDER/KIDNEY PROBLEMS N CORONARY ARTERY DISEASE (CAD) N ADDICTION CONCERNS N ENDOMETRIOSIS N Impotence N USE OF BLOOD THINNERS N SKIN PROBLEMS N GASTROINTESTINAL DISORDER N PERIPHERAL VASCULAR DISEASE N MUSCLE,JOINT OR BONE PROBLEMS Y GASTROINTESTINAL BLEEDING N BLOOD CLOTS N ASTHMA N CATARACTS N ERECTILE DYSFUNCTION N VARICOSITIES N GI PROBLEMS N Low Testosterone N INFERTILITY N AIDS/HIV N CHEMOTHERAPY / RADIATION N LIVER DISEASE N MALE HYPOGONADISM N HYPERTENSION Y Deficiency N TOURETTE'S N ANXIETY DISORDER N BLOOD TRANSFUSION N ANEMIA/BLOOD DISORDER N CHRONIC EAR INFECTIONS N BRONCHITIS N TUBERCULOSIS N GLAUCOMA N FOOT PROBLEM N DIVERTICULITIS N CHICKENPOX N SLEEP APNEA N INFECTIOUS DISEASE N HEART ARRHYTHMIA N PROSTATE N INSOMNIA N HIGH CHOLESTEROL / HYPERLIPIDEMIA Y HYPERTHYROIDISM N EYE PROBLEMS N EDEMA N CHRONIC PAIN SYNDROME N HYPOTHYROIDISM N CAROTID BLOCKAGE N CONSTIPATION N BACK / NECK PROBLEMS N HAVE YOU BEEN HOSPITALIZED OR SEEN IN [facility] IN THE PAST YEAR ? N ATHEROSCLEROSIS N BREAST PROBLEMS N DIALYSIS N ECZEMA N HISTORY WITH COMPLICATIONS WITH ANESTHES IA ? N OSTEOPOROSIS N ARTHRITIS N APPENDICITIS N DIABETES, TYPE N BAD TEETH N ENT N HEARTBURN / REFLUX N AUTISM SPECTRUM DISORDER (ASD) N HEPATITIS / LIVER DISEASE N GOUT N SLEEP DISORDER N ALZHEIMER'S DISEASE N Brain Problems N HERPES N DEMENTIA N HEADACHES/MIGRAINES N SEIZURES/EPILEPSY N VASCULAR DISEASE N PACEMAKER N Blood Disorder N DIZZINESS N HEART DISEASE/HEART PROBLEMS N KIDNEY DISEASE N MULTIPLE SCLEROSIS N CARDIAC ARRHYTHMIA N CANCER: SPECIFY N ATRIAL FIBRILLATION N Gall Stones N PULMONARY EMBOLISM N AUTOIMMUNE DISEASE N Immunizations Vaccine Type Date Status Note Provider Nam e and Address Organization Details Recorded Time COVID-19, mRNA, LNP-S, PF, 30 mcg/0.3 mL dose 06/22/2020 completed Not Available [facility] 3 01:42:13 COVID-19, mRNA, LNP-S, PF, 30 mcg/0.3 mL dose 06/01/2020 completed Not Available [facility] 3 01:42:13 Past Encounters Encounter ID Performer Location Encounter Start Date Encounter Closed Date Diagnosis/Indication Diagnosis SNOMED-CT Code Diagnosis ICD10 Code Diagnosis Note [id number] Maurice Costa MD [facility] Internal Med [facility] [address] [address] 10/21/2020 00:00:00 11/22/2020 10:51:11 [id number] [facility] ic_Gateway _ATHENA_ IGRATION_ DEFAULT_1 _1 , 02/27/2021 00:00:00 02/27/2021 12:06:21 [id number] Maurice Costa MD [facility] Internal Med [facility] [address] [place] [address] 1 05/25/2021 00:00:00 06/14/2021 20:33:43 [id number] Maurice Costa MD [facility] Internal Med [facility] [address] [place] [address] 1 11/30/2021 00:00:00 11/30/2021 22:56:13 [id number] Maurice Costa MD [facility] Internal Med [facility] [address] [address] 1 05/18/2022 11:35:17 05/18/2022 12:45:54 Benign essential hypertension 0317398 I10 Screening for malignant neoplasm of colon 874119500 Z12.11 Screening for malignant neoplasm of prostate 178663547 Z12.5 Chronic rhinitis 1126593 6 J31.0 Pure hypercholesterolemia 434387784 E78.00 [id number] Maurice Costa MD [facility] Internal Med [facility] [address] [address] 11/16/2022 11:42:24 11/16/2022 12:58:05 Benign essential hypertension 4953400 I10 Pure hypercholesterolemia 064243382 E78.00 Chronic rhinitis 2665237 6 J31.0 [id number] Maurice Costa MD [facility] [place] [facility] [address] [place] [address] 12/30/2022 11:41:44 12/30/2022 13:06:48 Benign essential hypertension 4837113 I10 Pure hypercholesterolemia 045379143 E78.00 Intussusce ption of intestine 62181379 K56.1 Health Concerns Section Related Observation LastModified by Organization Detai ls LastModified Time None Recorded Concern Status LastModified by Organization Details LastModified Time None Recorded Advance Directives Directive N: Payers Insurance Date Sequence Insurance Name Policy Number Policy Mireles Covered Member ID Mireles Member ID Guarantor Name 05/18/2022 1 [place]) [id number] Ger Kelly [id number] Roberto Kelly 05/18/2022 1 [employer]NAGEMENT (PPO) Roberto Kelly [id number] Roberto Kelly 02/06/2023 1 [employer] (PPO) Roberto Kelly [id number] Roberto Kelly Notes Date Note Type Note Provider Name and Address Organization Details Recorded Time 05/18/2022 text/html Hypertension no headache or dizzinessRhinitis seems to be about the sameDyslipidemia trying to follow a low-fat diet Maurice Costa MD [address], [place] [address], [place], [address], [employer] [facility] [employer] 06/20/2022 21:33:39 11/16/2022 text/html Hypertension no headache or dizzinessRhinitis seems to be about the sameDyslipidemia trying to follow a low-fat diet Maurice Costa MD [address], [facility] [address], [place], [address], [employer] [facility] [employer] 11/28/2022 15:54:59 12/30/2022 text/html Abdominal pain intussusception that resolved he did have a colonoscopy I do not have the official results and he developed some atrial fibrillation while he was there was discharged on diltiazem and on aspirin Maurice Costa MD [address] [facility] [address] [place] [address], [place], [address], [facility] 01/04/2023 11:46:15
--- OUTSIDE RECORDS SUMMARY | 2024-08-29 14:40 | XMS_ITS | Patient Health Record ---
Author Organization [facility] [employer] [place] ([address]) Address [address] [place] [address] Care Team Providers Care Compensation Intern Name Role Phone Maurice Costa Primary Care Provider Justa Valenzuela Unavailable [phone] Allergies No Known Allergies Reason For Referral No Information Medications Medication SIG (Take, Route, Frequency, Duration) Notes Start Date End Date Status ELIQUIS 5 mg as directed orally 2 times a day Active CETIRIZINE HYDROCHLORIDE 10 2 tab(s) orally once a day; Duration: 90 days Active KETOTIFEN OPHTHALMIC 0.025% 1 gtt in each affected eye every 8 hours Active MAGNESIUM OXIDE 400 mg 1 tab(s) orally once a day Active EPIPEN 2-HUNG 0.3 mg 0.3 mg intramuscularly once Not-Taking LOSARTAN 25 mg 1 tab(s) orally once a day Active DILTIAZEM 120 mg/24 hours 1 cap(s) orally once a day Active NASAL WASHES N/A DIRECTED INTRANASALLY NEEDED *Please review for potential replacement for e-prescription and drug interaction check* Active Eliquis 5 MG as directed orally 2 times a day Active Cetirizine HCl 10 2 TAB(S) ORALLY ONCE A DAY; Duration: 90 DAYS *Please review and pick correct strength-formula tion from [employer] options. If intended option is not shown, discontinue and re-order from Quick Search* Active Losartan Potassium 25 MG 1 tab(s) orally once a day Active Ketotifen Fumarate 0.025% 1 GTT IN EACH AFFECTED EYE EVERY 8 HOURS *Please review and pick correct strength-formula tion from [employer] options. If intended option is not shown, discontinue and re-order from Quick Search* Active Magnesium Oxide 400 MG 1 tab(s) orally once a day Active dilTIAZem HCl ER Beads 120 MG 1 cap(s) orally once a day Active METOPROLOL SUCCINATE ER 25 mg 1 tab(s) orally once a day Not-Taking ATORVASTATIN 10 mg 1 tab(s) orally once a day Active EpiPen 2-Hung 0.3 MG/0.3ML 0.3 mg intramuscularly once Not-Taking SINGULAIR 10 mg 1 tab(s) orally once a day (in the evening); Duration: 90 days Active AZELASTINE HYDROCHLORIDE NASAL 137 mcg/inh 2 spray(s) intranasally 2 times a day; Duration: 30 days Active SIT (TRADITIONAL) VARIABLE PER SCHEDULE SC PER SCHEDULE *Please review for potential replacement for e-prescription and drug interaction check* Not-Taking Azelastine HCl 137 MCG/SPRAY 2 spray(s) intranasally 2 times a day; Duration: 30 days Active Atorvastatin Calcium 10 MG 1 tab(s) orally once a day Active Singulair 10 MG 1 tab(s) orally once a day (in the evening); Duration: 90 days Active Metoprolol Succinate ER 25 MG 1 tab(s) orally once a day Not-Taking Immunizations Vaccine Route Administration Date Status Comme nts Influenza Unknown 11/08/2017 Refused NOC Flucelevax Quadrivalent Unknown 01/29/2020 Refused NOC Influenza-Fluzone Unknown 02/12/2019 Refused Social History Tobacco Use: Social History Observation Description Date Details (start date - stop date) Never Smoker NA - NA Smoking Smart Form: Question Answer Notes Are you a: never smoker Problems Problem Type SNOMED Code ICD Code Onset Dates Problem Status W/U Status Risk Notes Problem Chronic allergic conjunctivitis (87691283) Chronic allergic conjunctivitis NOS (372.14) Active confirmed Problem Allergic rhinitis due to allergen (27526128) Allergic rhinitis due to allergen (477.8) Active confirmed Problem Chronic allergic conjunctivitis (31677153) Other chronic allergic conjunctivitis (H10.45) Active confirmed Problem Common cold (74836490) Acute nasopharyngitis [common cold] (J00) Active confirmed Problem Acute upper respiratory infection (92124764) Acute upper respiratory infection, unspecified (J06.9) Active confirmed Problem Allergic rhinitis caused by pollen (disorder) (23438774) Allergic rhinitis due to pollen (J30.1) Active confirmed Problem Allergic rhinitis (64119230) Other allergic rhinitis (J30.89) Active confirmed Problem Cough (31128902) Cough (R05) Active confirmed Problem Vaccination given (593611026) Encounter for immunization (Z23) Active confirmed Problem Cough (finding) (67832084) Cough, unspecified (R05.9) Active confirmed Plan Of Treatment No Information Insurance Providers Payer Name Payer Address Payer Phone Subscriber Number Group Number Insured Name Patient Relationship to Insured Coverage Start Date Coverage End Date [facility] [address] [place] [phone] [id number] Ger Kelly Self - patient is the insured Medical (General) History Medical History History ICD Code Hypertension Allergic rhinitis due to pollen J30.1 AFIB Surgical History Surgery Date(Month/Year) Sinus surgery Hospitalization History Reason Date(Month/Year) Afib
--- OUTSIDE RECORDS SUMMARY | 2024-08-29 14:40 | XMS_ITS | Data Portability ---
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 A-fib metoprolol diltiazem and Eliquis. Allergies cetirizine montelukast azelastine nasal spray dyslipidemia atorvastatin and diet blood work has been ordered diagnosis of been discussed old records have been requested follow-up in 4 months Not available 04/25/2023 12:03:00 08/30/2023 08/30/2023 continue current therapy for his hyperlipidemia hypertension paroxysmal atrial fibrillation. Medrol Dosepak for his chronic rhinitis. For his weight healthy lifestyle care instructions were given he will follow up with me in 4 months prediabetes discussed dietary strategies discussed [email or web address] Not available 09/04/2023 12:13:02 11/29/2023 11/29/2023 blood work. Healthy lifestyle care instructions we will get his clothes colonoscopy report to close the gap. 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 but I would like to have those numbers he said that that is okay follow up with me in 4 months Not available 11/29/2023 22:44:40 04/03/2024 04/03/2024 clinically stabl e blood work ordered healthy lifestyle care instructions no change in medications rhinitis hypertension dyslipidemia trying to lose a little bit of weight PAF prediabetes evaluated discussed follow up 4 months [email or web address] Not available 05/06/2024 15:55:12 08/07/2024 08/07/2024 Healthy lifestyl e care instructions blood work for biochemical management of disease processes and medications colonoscopy scheduled for August of this year and he refuses HIV screening and Prevnar 20 [email or web address] Not available 08/11/2024 22:58:45 Plan of Treatment Reminders Order Date Submit Date Provider Last Modified By Organization Details Last Modified Time Details Appointments ANY 15 2024 10:15A M Melony Costa MD Not available Not available Not available Lab lipid panel, serum - Send copy to his cardiolog ist [facility]. 2024 025 [email or web address] [facility] (Centralized Electronic Ordering - All Locations), Patient Can Go To The Location Of Their Choice, [facility] [place] 08/07/2024 12:54:40 CMP, serum or plasma 2024 025 [email or web address] [facility] (Centralized Electronic Ordering - All Locations), Patient Can Go To The Location Of Their Choice, [facility] [place] 08/07/2024 12:54:40 CBC w/ auto diff 2024 025 [email or web address] [facility] (Centralized Electronic Ordering - All Locations), Patient Can Go To The Location Of Their Choice, [facility] [place] 08/07/2024 12:54:40 HbA1c (hemoglob in A1c), blood 2024 025 STEVIE Labdevon, [address], [place], [address], 04/04/2024 07:15:19 lipid panel, serum 2024 025 STEVIE Labdevon, [address], [place], [address], 04/04/2024 07:15:17 CMP, serum or plasma 2024 025 STEVIE Labcolauren, [address], [place], [address], 04/04/2024 07:15:18 CBC w/ auto diff 2024 025 STEVIE Rivera, [address], [place], [address], 04/04/2024 07:15:20 PSA, total, serum or plasma 2023 024 STEVIE Rivera, [address], [place], [address], 12/01/2023 06:23:16 HbA1c (hemoglob in A1c), blood 2023 024 STEVIE Rivera, [address], [place], [address], 12/01/2023 06:23:14 CBC w/ auto diff 2023 024 STEVIE Rivera, [address], [place], [address], 12/01/2023 06:23:15 CMP, serum or plasma 2023 024 STEVIE Rivera, [address], [place], [address], 12/01/2023 06:23:12 lipid panel, serum 2023 024 STEVIE Rivera, [address], [place], [address], 12/01/2023 06:23:11 CMP, serum or plasma - please send copy of results to Dr Black cardiolog ist. 2023 024 STEVIE Rivera [address], [place], [address], 04/26/2023 08:21:09 CBC w/ auto diff 2023 024 STEVIE Rivera, [address], [place], [address], 04/26/2023 08:21:12 lipid panel, serum [address] [facility], [address], [place], [address], 04/26/2023 08:21:07 TSH, ultra-sen sitive, serum [address] [facility], [address], [place], [address], 04/26/2023 08:21:11 T3, free, serum or plasma 2023 024 [facility], [address], [place], [address], 04/26/2023 08:21:13 unlisted lab - T4, free [address] [facility], [address], [place], [address], 04/26/2023 08:21:08 magnesium , serum or plasma [address] [facility], [address], [place], [address], 04/26/2023 08:21:10 Referral None recorded. Procedures None recorded. Surgeries None recorded. Imaging None recorded. Medication Orders Medrol (Hung) 4 mg tablets in a dose pack 2023 024 BELK [id number], [address], [place], [id number], 11/29/2023 11:46:19 Patient TargetsNo targets recorded. Patient Instructions Encounter Date Encounter Id Patient Instructions Last Modified By Organization Details Last Modified Time 08/30/2023 [id number] A healthy lifestyle: care instructions Not available 08/30/2023 11:36:46 11/29/2023 [id number] A healthy lifestyle: care instructions [email or web address] Not available 11/29/2023 12:30:06 04/03/2024 [id number] A healthy lifestyle: care instructions [email or web address] Not available 04/03/2024 13:04:57 08/07/2024 [id number] A healthy lifestyle: care instructions Not available 08/07/2024 11:48:15 Reason for Referral None Reported. Results Created Date Observation Date Name Description Value Unit Range Abnormal Flag Note LastModifiedBy Organization Detail LastModifiedTime 04/25/1904/26/2023 LIPID PANEL cholesterol, total 188 mg/dL 100-19 9 Not Available [facility] ([facility]) [address] [place], [address], 04/26/2023 08:21:07 04/25/19 24 04/26/2023 LIPID PANEL triglyceride s 221 mg/dL 0-149 above high normal Not Available [facility] ([facility]) [address] [place], [address], 04/26/2023 08:21:07 04/25/19 24 04/26/2023 LIPID PANEL HDL cholesterol 38 mg/dL >39 below low normal Not Available [facility] ([facility]) [address] [place], [address], 04/26/2023 08:21:07 04/25/19 24 04/26/2023 LIPID PANEL VLDL cholesterol carlota 39 mg/dL 5-40 Not Available [facility] ([facility]) [address] [place], [address], 04/26/2023 08:21:07 04/25/1904/26/2023 LIPID PANEL LDL chol calc ([facility]) 111 mg/dL 0-99 above high normal Not Available [facility] ([facility]) [address] [place], [address], 04/26/2023 08:21:07 04/25/19 24 04/26/2023 T4, FREE T4,free(dire ct) 1.37 NG/dL 0.82-1 .77 Not Available [facility] ([facility]) [address] [facility] [place], [address], 04/26/2023 08:21:08 04/25/19 24 04/26/2023 COMP. METAB OLIC PANEL (14) glucose 192 mg/dL 70-99 above high normal Not Available [facility] ([facility]) [address] [facility] [place], [address], 04/26/2023 08:21:09 04/25/19 24 04/26/2023 COMP. METAB OLIC PANEL (14) BUN 9 mg/dL 8-27 Not Available [facility] ([facility]) [address] [facility] [place], [address], 04/26/2023 08:21:09 04/25/19 24 04/26/2023 COMP. METAB OLIC PANEL (14) creatinine 0.97 mg/dL 0.76-1 .27 Not Available [facility] ([facility]) [address] [facility] [place], [address], 04/26/2023 08:21:09 04/25/19 24 04/26/2023 COMP. METAB OLIC PANEL (14) eGFR 87 mL/mi n/1.7 3 >59 Not Available [facility] ([facility]) [address] [facility] [place], [address], 04/26/2023 08:21:09 04/25/19 24 04/26/2023 COMP. METAB OLIC PANEL (14) BUN/creatini ne ratio 9 10-24 below low normal Not Available [facility] ([facility]) [address] [facility] [place], [address], 04/26/2023 08:21:09 04/25/19 24 04/26/2023 COMP. METAB OLIC PANEL (14) sodium 141 mmol/ L 134-14 4 Not Available [facility] ([facility]) [address] [place], [address], 04/26/2023 08:21:09 04/25/19 24 04/26/2023 COMP. METAB OLIC PANEL (14) potassium 4.5 mmol/ L 3.5-5. 2 Not Available [facility] ([facility]) [address], [place], [address], 04/26/2023 08:21:09 04/25/19 24 04/26/2023 COMP. METAB OLIC PANEL (14) chloride 102 mmol/ L 96-106 Not Available [facility] ([facility]) [address], [place], [address], 04/26/2023 08:21:09 04/25/19 24 04/26/2023 COMP. METAB OLIC PANEL (14) carbon dioxide, total 22 mmol/ L 20-29 Not Available [facility] ([facility]) [address], [place], [address], 04/26/2023 08:21:09 04/25/19 24 04/26/2023 COMP. METAB OLIC PANEL (14) calcium 9.6 mg/dL 8.6-10 .2 Not Available [facility] ([facility]) [address], [place], [address], 04/26/2023 08:21:09 04/25/19 24 04/26/2023 COMP. METAB OLIC PANEL (14) protein, total 6.8 g/dL 6.0-8. 5 Not Available [facility] ([facility]) [address] [place], [address], 04/26/2023 08:21:09 04/25/19 24 04/26/2023 COMP. METAB OLIC PANEL (14) albumin 4.5 g/dL 3.9-4. 9 Not Available [facility] ([facility]) [address] [place], [address], 04/26/2023 08:21:09 03/11/20 24 04/26/2023 COMP. METAB OLIC PANEL (14) globulin, total 2.3 g/dL 1.5-4. 5 Not Available [facility] ([facility]) [address] [facility] [place], [address], 04/26/2023 08:21:09 04/25/19 24 04/26/2023 COMP. METAB OLIC PANEL (14) A/G ratio 2.0 1.2-2. 2 Not Available [facility] ([facility]) [address] [facility] [place], [address], 04/26/2023 08:21:09 04/25/19 24 04/26/2023 COMP. METAB OLIC PANEL (14) bilirubin, total 0.7 mg/dL 0.0-1. 2 Not Available [facility] ([facility]) [address] [place], [address], 04/26/2023 08:21:09 04/25/19 24 04/26/2023 COMP. METAB OLIC PANEL (14) alkaline phosphatase 83 IU/L 44-121 Not Available [facility] ([facility]) [address] [place], [address], 04/26/2023 08:21:09 04/25/19 24 04/26/2023 COMP. METAB OLIC PANEL (14) AST (SGOT) 22 IU/L 0-40 Not Available [facility] ([facility]) [address] [place], [address], 04/26/2023 08:21:09 04/25/19 24 04/26/2023 COMP. METAB OLIC PANEL (14) ALT (SGPT) 40 IU/L 0-44 Not Available [facility] ([facility]) [address] [place], [address], 04/26/2023 08:21:09 04/25/19 24 04/26/2023 MAGNE SIUM magnesium 1.9 mg/dL 1.6-2. 3 Not Available [facility] ([facility]) [address] [facility] [place], [address], 04/26/2023 08:21:10 04/25/19 24 04/26/2023 TSH TSH 2.010 uIU/m L 0.450- 4.500 Not Available [facility] ([facility]) [address] [facility] [place], [address], 04/26/2023 08:21:11 04/25/19 24 04/26/2023 CBC WITH DIFFE RENTI AL/PL ATELE T WBC 7.6 x10e3 /uL 3.4-10 .8 Not Available [facility] ([facility]) [address] [facility] [place], [address], 04/26/2023 08:21:12 04/25/19 24 04/26/2023 CBC WITH DIFFE RENTI AL/PL ATELE T RBC 5.25 x10e6 /uL 4.14-5 .80 Not Available [facility] ([facility]) [address] [facility] [place], [address], 04/26/2023 08:21:12 04/25/19 24 04/26/2023 CBC WITH DIFFE RENTI AL/PL ATELE T hemoglobin 16.6 g/dL 13.0-1 7.7 Not Available [facility] ([facility]) [address] [place], [address], 04/26/2023 08:21:12 04/25/19 24 04/26/2023 CBC WITH DIFFE RENTI AL/PL ATELE T hematocrit 49.6 % 37.5-5 1.0 Not Available [facility] ([facility]) [address] [facility] [place], [address], 04/26/2023 08:21:12 04/25/19 24 04/26/2023 CBC WITH DIFFE RENTI AL/PL ATELE T MCV 95 fL 79-97 Not Available [facility] ([facility]) [address] [facility] [place], [address], 04/26/2023 08:21:12 04/25/19 24 04/26/2023 CBC WITH DIFFE RENTI AL/PL ATELE T MCH 31.6 pg 26.6-3 3.0 Not Available [facility] ([facility]) [address] [facility] [place], [address], 04/26/2023 08:21:12 04/25/19 24 04/26/2023 CBC WITH DIFFE RENTI AL/PL ATELE T MCHC 33.5 g/dL 31.5-3 5.7 Not Available [facility] ([facility]) [address] [facility] [place], [address], 04/26/2023 08:21:12 04/25/19 24 04/26/2023 CBC WITH DIFFE RENTI AL/PL ATELE T RDW 12.6 % 11.6-1 5.4 Not Available [facility] ([facility]) [address] [facility] [place], [address], 04/26/2023 08:21:12 04/25/19 24 04/26/2023 CBC WITH DIFFE RENTI AL/PL ATELE T platelets 255 x10e3 /uL 150-45 0 Not Available [facility] ([facility]) [address] [facility] [place], [address], 04/26/2023 08:21:12 04/25/19 24 04/26/2023 CBC WITH DIFFE RENTI AL/PL ATELE T neutrophils 62 % notest ab. Not Available [facility] ([facility]) [address] [facility] [place], [address], 04/26/2023 08:21:12 04/25/19 24 04/26/2023 CBC WITH DIFFE RENTI AL/PL ATELE T lymphs 26 % notest ab. Not Available [facility] ([facility]) [address] [facility] [place], [address], 04/26/2023 08:21:12 04/25/19 24 04/26/2023 CBC WITH DIFFE RENTI AL/PL ATELE T monocytes 9 % notest ab. Not Available [facility] ([facility]) [address] [facility] [place], [address], 04/26/2023 08:21:12 04/25/19 24 04/26/2023 CBC WITH DIFFE RENTI AL/PL ATELE T eos 2 % notest ab. Not Available [facility] ([facility]) [address] [facility] [place], [address], 04/26/2023 08:21:12 04/25/19 24 04/26/2023 CBC WITH DIFFE RENTI AL/PL ATELE T basos 1 % notest ab. Not Available [facility] ([facility]) [address] [facility] [place], [address], 04/26/2023 08:21:12 04/25/19 24 04/26/2023 CBC WITH DIFFE RENTI AL/PL ATELE T neutrophils (absolute) 4.7 x10e3 /uL 1.4-7. 0 Not Available [facility] ([facility]) [address] [facility] [place], [address], 04/26/2023 08:21:12 04/25/19 24 04/26/2023 CBC WITH DIFFE RENTI AL/PL ATELE T lymphs (absolute) 2.0 x10e3 /uL 0.7-3. 1 Not Available [facility] ([facility]) [address] [facility] [place], [address], 04/26/2023 08:21:12 04/25/19 24 04/26/2023 CBC WITH DIFFE RENTI AL/PL ATELE T monocytes(ab solute) 0.7 x10e3 /uL 0.1-0. 9 Not Available [facility] ([facility]) [address] [facility] [place], [address], 04/26/2023 08:21:12 04/25/19 24 04/26/2023 CBC WITH DIFFE RENTI AL/PL ATELE T eos (absolute) 0.2 x10e3 /uL 0.0-0. 4 Not Available [facility] ([facility]) [address] [facility] [place], [address], 04/26/2023 08:21:12 04/25/19 24 04/26/2023 CBC WITH DIFFE RENTI AL/PL ATELE T baso (absolute) 0.1 x10e3 /uL 0.0-0. 2 Not Available [facility] ([facility]) [address] [facility], [place], [address], 04/26/2023 08:21:12 04/25/19 24 04/26/2023 CBC WITH DIFFE RENTI AL/PL ATELE T immature granulocytes 0 % notest ab. Not Available [facility] ([facility]) [address] [place], [address], 04/26/2023 08:21:12 04/25/19 24 04/26/2023 CBC WITH DIFFE RENTI AL/PL ATELE T immature grans (abs) 0.0 x10e3 /uL 0.0-0. 1 Not Available [facility] ([facility]) [address] [place], [address], 04/26/2023 08:21:12 04/25/19 24 04/26/2023 TRIIO DOTHY FABIAN E (T3), FREE triiodothyro nine (T3), free 3.3 pg/mL 2.0-4. 4 Not Available [facility] ([facility]) [address] [place], [address], 04/26/2023 08:21:13 04/29/19 24 04/30/2023 HEMOG LOBIN A1C hemoglobin A1C 6.0 % 4.8-5. 6 above high normal Predi abete s: 5.7 - 6.4 Diabe vivian: >6.4 Glyce leigh contr ol for adult s with diabe vivian: <7.0 Not Available [facility] ([facility]) [address] [facility], [place], [address], 04/30/2023 06:16:08 11/30/1912/01/2023 LIPID PANEL cholesterol, total 153 mg/dL 100-19 9 Not Available [facility] ([facility]) [address] [place], [address], 12/01/2023 06:23:11 11/30/1912/01/2023 LIPID PANEL triglyceride s 119 mg/dL 0-149 Not Available [facility] ([facility]) [address] [place], [address], 12/01/2023 06:23:11 11/30/1912/01/2023 LIPID PANEL HDL cholesterol 37 mg/dL >39 below low normal Not Available [facility] ([facility]) [address] [place], [address], 12/01/2023 06:23:11 11/30/19 24 12/01/2023 LIPID PANEL VLDL cholesterol carlota 22 mg/dL 5-40 Not Available [facility] ([facility]) [address] [place], [address], 12/01/2023 06:23:11 11/30/1912/01/2023 LIPID PANEL LDL chol calc ([facility]) 94 mg/dL 0-99 Not Available [facility] ([facility]) [address] [place], [address], 12/01/2023 06:23:11 11/30/19 24 12/01/2023 COMP. METAB OLIC PANEL (14) glucose 114 mg/dL 70-99 above high normal Not Available [facility] ([facility]) [address] [facility] [place], [address], 12/01/2023 06:23:12 11/30/19 24 12/01/2023 COMP. METAB OLIC PANEL (14) BUN 8 mg/dL 8-27 Not Available [facility] ([facility]) [address] [facility] [place], [address], 12/01/2023 06:23:12 11/30/19 24 12/01/2023 COMP. METAB OLIC PANEL (14) creatinine 0.87 mg/dL 0.76-1 .27 Not Available [facility] ([facility]) [address] [facility] [place], [address], 12/01/2023 06:23:12 11/30/19 24 12/01/2023 COMP. METAB OLIC PANEL (14) eGFR 96 mL/mi n/1.7 3 >59 Not Available [facility] ([facility]) [address] [facility] [place], [address], 12/01/2023 06:23:12 11/30/19 24 12/01/2023 COMP. METAB OLIC PANEL (14) BUN/creatini ne ratio 9 10-24 below low normal Not Available [facility] ([facility]) [address] [facility] [place], [address], 12/01/2023 06:23:12 11/30/19 24 12/01/2023 COMP. METAB OLIC PANEL (14) sodium 141 mmol/ L 134-14 4 Not Available [facility] ([facility]) [address] [facility] [place], [address], 12/01/2023 06:23:12 11/30/19 24 12/01/2023 COMP. METAB OLIC PANEL (14) potassium 4.5 mmol/ L 3.5-5. 2 Not Available [facility] ([facility]) [address] [facility] [place], [address], 12/01/2023 06:23:12 11/30/19 24 12/01/2023 COMP. METAB OLIC PANEL (14) chloride 104 mmol/ L 96-106 Not Available [facility] ([facility]) [address] [facility] [place], [address], 12/01/2023 06:23:12 11/30/19 24 12/01/2023 COMP. METAB OLIC PANEL (14) carbon dioxide, total 25 mmol/ L 20-29 Not Available [facility] ([facility]) [address] [facility] [place], [address], 12/01/2023 06:23:12 11/30/1912/01/2023 COMP. METAB OLIC PANEL (14) calcium 9.2 mg/dL 8.6-10 .2 Not Available [facility] ([facility]) [address] [facility] [place], [address], 12/01/2023 06:23:12 11/30/19 24 12/01/2023 COMP. METAB OLIC PANEL (14) protein, total 6.2 g/dL 6.0-8. 5 Not Available [facility] ([facility]) [address] [facility] [place], [address], 12/01/2023 06:23:12 11/30/19 24 12/01/2023 COMP. METAB OLIC PANEL (14) albumin 4.3 g/dL 3.9-4. 9 Not Available [facility] ([facility]) [address] [facility] [place], [address], 12/01/2023 06:23:12 11/30/19 24 12/01/2023 COMP. METAB OLIC PANEL (14) globulin, total 1.9 g/dL 1.5-4. 5 Not Available [facility] ([facility]) [address] [facility] [place], [address], 12/01/2023 06:23:12 11/30/19 24 12/01/2023 COMP. METAB OLIC PANEL (14) bilirubin, total 0.9 mg/dL 0.0-1. 2 Not Available [facility] ([facility]) [address] [place], [address], 12/01/2023 06:23:12 11/30/19 24 12/01/2023 COMP. METAB OLIC PANEL (14) alkaline phosphatase 71 IU/L 44-121 Not Available [facility] ([facility]) [address] [place], [address], 12/01/2023 06:23:12 11/30/19 24 12/01/2023 COMP. METAB OLIC PANEL (14) AST (SGOT) 16 IU/L 0-40 Not Available [facility] ([facility]) [address] [facility] [place], [address], 12/01/2023 06:23:12 11/30/19 24 12/01/2023 COMP. METAB OLIC PANEL (14) ALT (SGPT) 20 IU/L 0-44 Not Available [facility] ([facility]) [address] [facility] [place], [address], 12/01/2023 06:23:12 11/30/1912/01/2023 HEMOG LOBIN A1C hemoglobin A1C 5.8 % 4.8-5. 6 above high normal Predi abete s: 5.7 - 6.4 Diabe vivian: >6.4 Glyce leigh contr ol for adult s with diabe vivian: <7.0 Not Available [facility] ([facility]) [address] [facility] [place], [address], 12/01/2023 06:23:14 11/30/1911/30/2023 CBC WITH DIFFE RENTI AL/PL ATELE T WBC 7.2 x10e3 /uL 3.4-10 .8 Not Available [facility] ([facility]) [address] [place], [address], 12/01/2023 06:23:15 11/30/19 24 11/30/2023 CBC WITH DIFFE RENTI AL/PL ATELE T RBC 4.85 x10e6 /uL 4.14-5 .80 Not Available [facility] ([facility]) [address] [facility] [place], [address], 12/01/2023 06:23:15 11/30/19 24 11/30/2023 CBC WITH DIFFE RENTI AL/PL ATELE T hemoglobin 15.4 g/dL 13.0-1 7.7 Not Available [facility] ([facility]) [address] [facility] [place], [address], 12/01/2023 06:23:15 11/30/19 24 11/30/2023 CBC WITH DIFFE RENTI AL/PL ATELE T hematocrit 47.3 % 37.5-5 1.0 Not Available [facility] ([facility]) [address] [facility] [place], [address], 12/01/2023 06:23:15 11/30/1911/30/2023 CBC WITH DIFFE RENTI AL/PL ATELE T MCV 98 fL 79-97 above high normal Not Available [facility] ([facility]) [address] [place], [address], 12/01/2023 06:23:15 11/30/19 24 11/30/2023 CBC WITH DIFFE RENTI AL/PL ATELE T MCH 31.8 pg 26.6-3 3.0 Not Available [facility] ([facility]) [address] [place], [address], 12/01/2023 06:23:15 11/30/19 24 11/30/2023 CBC WITH DIFFE RENTI AL/PL ATELE T MCHC 32.6 g/dL 31.5-3 5.7 Not Available [facility] ([facility]) [address] [place], [address], 12/01/2023 06:23:15 11/30/19 24 11/30/2023 CBC WITH DIFFE RENTI AL/PL ATELE T RDW 12.4 % 11.6-1 5.4 Not Available [facility] ([facility]) [address] [facility] [place], [address], 12/01/2023 06:23:15 11/30/19 24 11/30/2023 CBC WITH DIFFE RENTI AL/PL ATELE T platelets 248 x10e3 /uL 150-45 0 Not Available [facility] ([facility]) [address] [facility], [place], [address], 12/01/2023 06:23:15 11/30/19 24 11/30/2023 CBC WITH DIFFE RENTI AL/PL ATELE T neutrophils 60 % notest ab. Not Available [facility] ([facility]) [address] [facility], [place], [address], 12/01/2023 06:23:15 11/30/19 24 11/30/2023 CBC WITH DIFFE RENTI AL/PL ATELE T lymphs 27 % notest ab. Not Available [facility] ([facility]) [address] [facility], [place], [address], 12/01/2023 06:23:15 11/30/19 24 11/30/2023 CBC WITH DIFFE RENTI AL/PL ATELE T monocytes 10 % notest ab. Not Available [facility] ([facility]) [address] [facility], [place], [address], 12/01/2023 06:23:15 11/30/19 24 11/30/2023 CBC WITH DIFFE RENTI AL/PL ATELE T eos 2 % notest ab. Not Available [facility] ([facility]) [address] [facility], [place], [address], 12/01/2023 06:23:15 11/30/19 24 11/30/2023 CBC WITH DIFFE RENTI AL/PL ATELE T basos 1 % notest ab. Not Available [facility] ([facility]) [address] [facility], [place], [address], 12/01/2023 06:23:15 11/30/19 24 11/30/2023 CBC WITH DIFFE RENTI AL/PL ATELE T neutrophils (absolute) 4.3 x10e3 /uL 1.4-7. 0 Not Available [facility] ([facility]) [address] [facility], [place], [address], 12/01/2023 06:23:15 11/30/1911/30/2023 CBC WITH DIFFE RENTI AL/PL ATELE T lymphs (absolute) 1.9 x10e3 /uL 0.7-3. 1 Not Available [facility] ([facility]) [address] [place], [address], 12/01/2023 06:23:15 11/30/19 24 11/30/2023 CBC WITH DIFFE RENTI AL/PL ATELE T monocytes(ab solute) 0.8 x10e3 /uL 0.1-0. 9 Not Available [facility] ([facility]) [address] [place], [address], 12/01/2023 06:23:15 11/30/19 24 11/30/2023 CBC WITH DIFFE RENTI AL/PL ATELE T eos (absolute) 0.2 x10e3 /uL 0.0-0. 4 Not Available [facility] ([facility]) [address] [place], [address], 12/01/2023 06:23:15 11/30/19 24 11/30/2023 CBC WITH DIFFE RENTI AL/PL ATELE T baso (absolute) 0.0 x10e3 /uL 0.0-0. 2 Not Available [facility] ([facility]) [address] [place], [address], 12/01/2023 06:23:15 11/30/19 24 11/30/2023 CBC WITH DIFFE RENTI AL/PL ATELE T immature granulocytes 0 % notest ab. Not Available [facility] ([facility]) [address] [facility], [place], [address], 12/01/2023 06:23:15 11/30/19 24 11/30/2023 CBC WITH DIFFE RENTI AL/PL ATELE T immature grans (abs) 0.0 x10e3 /uL 0.0-0. 1 Not Available [facility] ([facility]) [address] [facility], [place], [address], 12/01/2023 06:23:15 11/30/19 24 12/01/2023 PROST ATE-S PECIF IC AG prostate specific Ag 2.1 NG/mL 0.0-4. 0 Jamal ECLIA metho dolog y. Accor ding to the Ameri can [employer] g[employer] iatio n, Serum PSA shoul d decre ase and remai n at undet ectab le level s after radic al prost atect hemant. The AUA defin es bioch emica l recur rence as an initi al PSA value 0.2 ng/mL or great er follo wed by a subse quent confi rmato ry PSA value 0.2 ng/mL or great er. Value s obtai [place] with diffe rent assay metho ds or kits canno t be used inter beaver eably . Resul ts canno t be inter prete d as absol false pass evide nce of the prese nce or [facility]en [facility] [place] [facility]. Not Available [facility] ([facility]) [address] [facility], [place], [address], 12/01/2023 06:23:16 04/03/19 25 04/04/2024 LIPID PANEL cholesterol, total 140 mg/dL 100-19 9 Not Available [facility] ([facility]) [address] [facility], [place], [address], 04/04/2024 07:15:17 04/03/19 25 04/04/2024 LIPID PANEL triglyceride s 89 mg/dL 0-149 Not Available [facility] ([facility]) [address] [place], [address], 04/04/2024 07:15:17 04/03/19 25 04/04/2024 LIPID PANEL HDL cholesterol 38 mg/dL >39 below low normal Not Available [facility] ([facility]) [address] [place], [address], 04/04/2024 07:15:17 04/03/19 25 04/04/2024 LIPID PANEL VLDL cholesterol [place] 17 mg/dL 5-40 Not Available [facility] ([facility]) [address] [place], [address], 04/04/2024 07:15:17 04/03/19 25 04/04/2024 LIPID PANEL LDL chol calc ([facility]) 85 mg/dL 0-99 Not Available [facility] ([facility]) [address] [place], [address], 04/04/2024 07:15:17 04/03/19 25 04/04/2024 COMP. METAB OLIC PANEL (14) glucose 91 mg/dL 70-99 Not Available [facility] ([facility]) [address] [place], [address], 04/04/2024 07:15:18 04/03/19 25 04/04/2024 COMP. METAB OLIC PANEL (14) BUN 10 mg/dL 8-27 Not Available [facility] ([facility]) [address] [place], [address], 04/04/2024 07:15:18 04/03/19 25 04/04/2024 COMP. METAB OLIC PANEL (14) creatinine 0.92 mg/dL 0.76-1 .27 Not Available [facility] ([facility]) [address] [place], [address], 04/04/2024 07:15:18 04/03/19 25 04/04/2024 COMP. METAB OLIC PANEL (14) eGFR 92 mL/mi n/1.7 3 >59 Not Available [facility] ([facility]) [address] [facility], [place], [address], 04/04/2024 07:15:18 04/03/19 25 04/04/2024 COMP. METAB OLIC PANEL (14) BUN/creatini ne ratio 11 10-24 Not Available [facility] ([facility]) [address] [facility], [place], [address], 04/04/2024 07:15:18 04/03/19 25 04/04/2024 COMP. METAB OLIC PANEL (14) sodium 143 mmol/ L 134-14 4 Not Available [facility] ([facility]) [address] [facility], [place], [address], 04/04/2024 07:15:18 04/03/19 25 04/04/2024 COMP. METAB OLIC PANEL (14) potassium 4.9 mmol/ L 3.5-5. 2 Not Available [facility] ([facility]) [address] [facility], [place], [address], 04/04/2024 07:15:18 04/03/19 25 04/04/2024 COMP. METAB OLIC PANEL (14) chloride 105 mmol/ L 96-106 Not Available [facility] ([facility]) [address] [facility], [place], [address], 04/04/2024 07:15:18 04/03/19 25 04/04/2024 COMP. METAB OLIC PANEL (14) carbon dioxide, total 27 mmol/ L 20-29 Not Available [facility] ([facility]) [address] [facility], [place], [address], 04/04/2024 07:15:18 04/03/19 25 04/04/2024 COMP. METAB OLIC PANEL (14) calcium 9.3 mg/dL 8.6-10 .2 Not Available [facility] ([facility]) [address] [place], [address], 04/04/2024 07:15:18 04/03/19 25 04/04/2024 COMP. METAB OLIC PANEL (14) protein, total 6.3 g/dL 6.0-8. 5 Not Available [facility] ([facility]) [address] [facility], [place], [address], 04/04/2024 07:15:18 04/03/19 25 04/04/2024 COMP. METAB OLIC PANEL (14) albumin 4.4 g/dL 3.9-4. 9 Not Available [facility] ([facility]) [address] [place], [address], 04/04/2024 07:15:18 04/03/19 25 04/04/2024 COMP. METAB OLIC PANEL (14) globulin, total 1.9 g/dL 1.5-4. 5 Not Available [facility] ([facility]) [address] [place], [address], 04/04/2024 07:15:18 04/03/19 25 04/04/2024 COMP. METAB OLIC PANEL (14) bilirubin, total 0.8 mg/dL 0.0-1. 2 Not Available [facility] ([facility]) [address] [place], [address], 04/04/2024 07:15:18 04/03/19 25 04/04/2024 COMP. METAB OLIC PANEL (14) alkaline phosphatase 79 IU/L 44-121 Not Available [facility] ([facility]) [address] [place], [address], 04/04/2024 07:15:18 04/03/19 25 04/04/2024 COMP. METAB OLIC PANEL (14) AST (SGOT) 15 IU/L 0-40 Not Available [facility] ([facility]) [address] [place], [address], 04/04/2024 07:15:18 04/03/19 25 04/04/2024 COMP. METAB OLIC PANEL (14) ALT (SGPT) 23 IU/L 0-44 Not Available [facility] ([facility]) [address] [facility], [place], [address], 04/04/2024 07:15:18 04/03/19 25 04/04/2024 HEMOG LOBIN A1C hemoglobin A1C 6.0 % 4.8-5. 6 above high normal Predi abete s: 5.7 - 6.4 Diabe vivian: >6.4 Glyce leigh contr ol for adult s with diabe vivian: <7.0 Not Available [facility] ([facility]) [address] [facility], [place], [address], 04/04/2024 07:15:19 04/03/19 25 04/04/2024 CBC WITH DIFFE RENTI AL/PL ATELE T WBC 6.3 x10e3 /uL 3.4-10 .8 Not Available [facility] ([facility]) [address] [place], [address], 04/04/2024 07:15:20 04/03/19 25 04/04/2024 CBC WITH DIFFE RENTI AL/PL ATELE T RBC 4.95 x10e6 /uL 4.14-5 .80 Not Available [facility] ([facility]) [address] [place], [address], 04/04/2024 07:15:20 04/03/19 25 04/04/2024 CBC WITH DIFFE RENTI AL/PL ATELE T hemoglobin 16.0 g/dL 13.0-1 7.7 Not Available [facility] ([facility]) [address] [place], [address], 04/04/2024 07:15:20 04/03/19 25 04/04/2024 CBC WITH DIFFE RENTI AL/PL ATELE T hematocrit 48.0 % 37.5-5 1.0 Not Available [facility] ([facility]) [address] [facility], [place], [address], 04/04/2024 07:15:20 04/03/19 25 04/04/2024 CBC WITH DIFFE RENTI AL/PL ATELE T MCV 97 fL 79-97 Not Available [facility] ([facility]) [address] [facility], [place], [address], 04/04/2024 07:15:20 04/03/19 25 04/04/2024 CBC WITH DIFFE RENTI AL/PL ATELE T MCH 32.3 pg 26.6-3 3.0 Not Available [facility] ([facility]) [address] [facility], [place], [address], 04/04/2024 07:15:20 04/03/19 25 04/04/2024 CBC WITH DIFFE RENTI AL/PL ATELE T MCHC 33.3 g/dL 31.5-3 5.7 Not Available [facility] ([facility]) [address] [facility], [place], [address], 04/04/2024 07:15:20 04/03/19 25 04/04/2024 CBC WITH DIFFE RENTI AL/PL ATELE T RDW 12.1 % 11.6-1 5.4 Not Available [facility] ([facility]) [address] [facility], [place], [address], 04/04/2024 07:15:20 04/03/19 25 04/04/2024 CBC WITH DIFFE RENTI AL/PL ATELE T platelets 281 x10e3 /uL 150-45 0 Not Available [facility] ([facility]) [address] [place], [address], 04/04/2024 07:15:20 04/03/19 25 04/04/2024 CBC WITH DIFFE RENTI AL/PL ATELE T neutrophils 66 % notest ab. Not Available [facility] ([facility]) [address] [facility], [place], [address], 04/04/2024 07:15:20 04/03/19 25 04/04/2024 CBC WITH DIFFE RENTI AL/PL ATELE T lymphs 21 % notest ab. Not Available [facility] ([facility]) [address] [facility], [place], [address], 04/04/2024 07:15:20 04/03/19 25 04/04/2024 CBC WITH DIFFE RENTI AL/PL ATELE T monocytes 11 % notest ab. Not Available [facility] ([facility]) [address] [facility], [place], [address], 04/04/2024 07:15:20 04/03/19 25 04/04/2024 CBC WITH DIFFE RENTI AL/PL ATELE T eos 1 % notest ab. Not Available [facility] ([facility]) [address] [facility], [place], [address], 04/04/2024 07:15:20 04/03/19 25 04/04/2024 CBC WITH DIFFE RENTI AL/PL ATELE T basos 1 % notest ab. Not Available [facility] ([facility]) [address] [facility], [place], [address], 04/04/2024 07:15:20 04/03/19 25 04/04/2024 CBC WITH DIFFE RENTI AL/PL ATELE T neutrophils (absolute) 4.2 x10e3 /uL 1.4-7. 0 Not Available [facility] ([facility]) [address] [facility], [place], [address], 04/04/2024 07:15:20 04/03/19 25 04/04/2024 CBC WITH DIFFE RENTI AL/PL ATELE T lymphs (absolute) 1.3 x10e3 /uL 0.7-3. 1 Not Available [facility] ([facility]) [address] [facility], [place], [address], 04/04/2024 07:15:20 04/03/19 25 04/04/2024 CBC WITH DIFFE RENTI AL/PL ATELE T monocytes(ab solute) 0.7 x10e3 /uL 0.1-0. 9 Not Available [facility] ([facility]) [address] [facility], [place], [address], 04/04/2024 07:15:20 04/03/19 25 04/04/2024 CBC WITH DIFFE RENTI AL/PL ATELE T eos (absolute) 0.1 x10e3 /uL 0.0-0. 4 Not Available [facility] ([facility]) [address] [facility], [place], [address], 04/04/2024 07:15:20 04/03/19 25 04/04/2024 CBC WITH DIFFE RENTI AL/PL ATELE T baso (absolute) 0.1 x10e3 /uL 0.0-0. 2 Not Available [facility] ([facility]) [address] [facility], [place], [address], 04/04/2024 07:15:20 04/03/19 25 04/04/2024 CBC WITH DIFFE RENTI AL/PL ATELE T immature granulocytes 0 % notest ab. Not Available [facility] ([facility]) [address] [facility], [place], [address], 04/04/2024 07:15:20 04/03/19 25 04/04/2024 CBC WITH DIFFE RENTI AL/PL ATELE T immature grans (abs) 0.0 x10e3 /uL 0.0-0. 1 Not Available [facility] ([facility]) [address] [place], [address], 04/04/2024 07:15:20 06/17/19 24 06/16/2023 US, duple x, carot id arter y No observ ation record ed. [facility] [address], [place], [address], 06/24/2023 10:37:26 06/17/19 US, duple x, carot id arter y No observ ation record ed. [facility] [address], [place], [address], 06/24/2023 10:38:20 06/24/19 24 US, duple x, carot id arter y No observ ation record ed. [facility] [address], [place], [address], 06/24/2023 10:37:26 05/11/19 25 05/09/2024 , echoc ardio gram No observ ation record ed. [email or web address] [facility] [address], [place], [address], 05/11/2024 09:47:47 Result Notes None recorded. Problems Name Problem SNOMED Code Status Onset Date Resolution Date Notes Provider Name and Address Organization Details Recorded Time Hyperlipidemia 41473420 Active 2023 Melony Costa MD Attn: Paulino montero,[address] [facility], [place], [address], [facility] 4 11:01:33 Essential hypertension 95699703 Active 2023 Melony Costa MD Attn: Paulino montero,[address] [facility], [place], [address], [place] - [facility] 4 11:01:35 Paroxysmal atrial fibrillation 891745643 Active 2023 Melony Costa MD Attn: Paulino montero,[address] [facility], [place], [address], [facility] 4 11:01:37 Chronic rhinitis 63198003 Active 2023 Melanie Mesa MA null, [place] - [facility] 4 11:29:21 Prediabetes 768330773 Active 2023 Melony Costa MD Attn: Paulino montero,[address] [facility], [place], [address], [facility] 4 11:31:20 Overweight 665605879 Active 2023 Melony Costa MD Attn: Paulino montero,[address] [facility], [place], [address], [facility] 4 11:31:29 Problem Notes None recorded. Procedures Surgical History Date Name Laterality Status Provider Name and Address Organization Details Recorded Time operation on stomach completed Clifton Hardy MA [facility] 04/25/2023 11:21:09 Imaging Results None recorded. Procedure Notes None recorded. Medical Equipment None Reported. Allergies No known drug allergies Medications Name Sig Start Date Stop Date Status Note LastModified by Organization Details LastModified Time cetirizine 10 mg tablet TAKE 2 TABLETS BY MOUTH ONCE DAILY active Not Available Not Available No t Available atorvastati n 10 mg tablet TAKE 1 TABLET BY MOUTH DAILY active Not Available Not Available No t Available diltiazem CD 180 mg capsule,ext ended release 24 hr TAKE 1 CAPSULE BY MOUTH DAILY active Not Available Not Available No t Available fluticasone propionate 0.05 % topical cream RUB IN WELL TWICE DAILY TO AFFECTED AREAS ON FACE UNTIL CLEAR 04/03 completed Not Available Not Available Not Available minocycline 100 mg capsule TAKE 1 CAPSULE BY MOUTH TWICE DAILY FOR 14 DAYS 11/28 completed Not Available Not Available Not Available amlodipine 5 mg tablet TAKE 1 TABLET BY MOUTH EVERY DAY 04/24 completed Not Available Not Available Not Available aspirin 81 mg tablet,moncho yed release TAKE 1 TABLET BY MOUTH EVERY DAY 04/24 completed Not Available Not Available Not Available amoxicillin 500 mg tablet TAKE 1 TABLET BY MOUTH THREE TIMES DAILY UNTIL GONE active Not Available Not Available No t Available terbinafine HCl 250 mg tablet TAKE 1 TABLET BY MOUTH ONCE DAILY 04/03 completed Not Available Not Available Not Available magnesium oxide 400 mg (241.3 mg magnesium) tablet TAKE 1 TABLET BY MOUTH TWICE DAILY active Not Available Not Available No t Available clindamycin 1 % topical gel APPLY TO THE AFFECTED AREA OF SCALPS AFTER SHAMPOOIN G ONCE DAILY active Not Available Not Available No t Available losartan 25 mg tablet TAKE 1 TABLET BY MOUTH DAILY active Not Available Not Available No t Available montelukast 10 mg tablet TAKE 1 TABLET BY MOUTH DAILY IN THE EVENING 04/03 completed Not Available Not Available Not Available metoprolol succinate ER 25 mg tablet,exte nded release 24 hr TAKE 1 TABLET BY MOUTH DAILY active Not Available Not Available No t Available azelastine 137 mcg (0.1 %) nasal spray USE 2 SPRAYS IN EACH NOSTRIL TWICE DAILY active Not Available Not Available No t Available methylpredn isolone 4 mg tablets in a dose pack FOLLOW PACKAGE DIRECTION S 11/28 completed Not Available Not Available Not Available ketoconazol e 2 % topical cream APPLY TOPICALLY TO THE AFFECTED AREA TWICE DAILY. RUB IN WELL 04/03 completed Not Available Not Available Not Available clobetasol 0.05 % scalp solution RUB IN WELL TO THE AFFECTED AREA OF THE SCALP EVERY DAY UNTIL CLEAR 04/03 completed Not Available Not Available Not Available cefdinir 300 mg capsule TAKE 1 CAPSULE BY MOUTH EVERY 12 HOURS FOR 10 DAYS 04/24 completed Not Available Not Available Not Available Eliquis 5 mg tablet TAKE 1 TABLET BY MOUTH TWICE DAILY active Not Available Not Available No t Available Vitals Date Recorded Body height Body mass index (BMI) Body weight Heart rate Oxygen saturation Oxygen saturation in Arterial blood by Pulse oximetry Systolic And Diastolic Provider Name and Address Organization Details Last Updated DateTime 5 180.34 cm 27.9 kg/m2 03570.4 7 g 68 /min 96 % 96 % 130/84 mm[Hg] Sabina Lees MA [facility] 5 11:21:17 Date Recorded Body height Body mass index (BMI) Body weight Heart rate Oxygen saturation Oxygen saturation in Arterial blood by Pulse oximetry Systolic And Diastolic Provider Name and Address Organization Details Last Updated DateTime 4 180.34 cm 28 kg/m2 04558.0 7 g 57 /min 97 % 97 % 134/76 mm[Hg] Clifton Hardy MA [facility] 4 11:27:02 Date Recorded Body height Body mass index (BMI) Body weight Heart rate Oxygen saturation Oxygen saturation in Arterial blood by Pulse oximetry Systolic And Diastolic Provider Name and Address Organization Details Last Updated DateTime 5 180.34 cm 27.1 kg/m2 49001.3 6 g 78 /min 98 % 98 % 122/68 mm[Hg] Vicki Gautam MA [facility] 5 11:12:10 Date Recorded Body height Body mass index (BMI) Body weight Heart rate Oxygen saturation Oxygen saturation in Arterial blood by Pulse oximetry Systolic And Diastolic Provider Name and Address Organization Details Last Updated DateTime 4 180.34 cm 27.1 kg/m2 88483.9 2 g 90 /min 97 % 97 % 124/80 mm[Hg] Clifton Hardy MA [facility] 4 10:47:53 Date Recorded Body height Body mass index (BMI) Body weight Heart rate Oxygen saturation Oxygen saturation in Arterial blood by Pulse oximetry Systolic And Diastolic Provider Name and Address Organization Details Last Updated DateTime 4 180.34 cm 27.9 kg/m2 95610.5 5 g 99 /min 97 % 97 % 130/98 mm[Hg] Sabina Lees MA [facility] 4 11:45:26 Social History Question Answer Notes LastModified by Organizat ion Details LastModified Time Tobacco Smoking Status Never Smoker [facility]/25/[facility]23 11:09:10 Do You Have An Advance Directive? No Information n ot available 11/29/2023 Are You Blind Or Do You Have Difficulty Seeing? No Information n ot available 04/25/2023 In The 14 Days Before Symptom Onset, Have You Had Close Contact With A Laboratory-confirm ed COVID-19 While That Case Was Ill? No Information n ot available 11/29/2023 In The 14 Days Before Symptom Onset, Have You Had Close Contact With A Person Who Is Under Investigation For COVID-19 While That Person Was Ill? No Information not available 11/29/2023 Have You Been To An Area Known To Be High Risk For COVID-19? No Information not available 11/29/2023 Are You Deaf Or Do You Have Serious Difficulty Hearing? No Information not available 04/25/2023 What Type Of Diet Are You Following? REGULAR Information n ot available 04/25/2023 Are There Any Guns Present In Your Home? No Information not available 04/25/2023 What Was The Date Of Your Most Recent Tobacco Screening? 08/07/2024 [email or web address] Information not available 08/07/2024 Do You Use Your Seat Belt Or Car Seat Routinely? Yes Information not available 04/25/2023 Do You Have Smoke And Carbon Monoxide Detectors In Your Home? Yes Information not available 04/25/2023 Do You Use Sunscreen Routinely? No Information not available 04/25/2023 Has Tobacco Cessation Counseling Been Provided? No Information not available 04/25/2023 Sex: Male Functional Status Question Answer Note LastModified by [employer] ion Details LastModified Time Do you use any illicit or recreational drugs? No Information not available 04/25/2023 Do you or have you ever used any other forms of tobacco or nicotine? No Information not available 04/25/2023 What is your level of alcohol consumption? None Information not available 04/25/2023 Are you currently employed? No Information not available 11/29/2023 Are you able to care for yourself? Yes Information not available 04/25/2023 What is your exercise level? None Information not available 04/25/2023 Mental Status None recorded. Family History Relationship Description Onset Age of this Age Resolved Age Notes LastModified by Organization Details LastModified Time Sister Diabetes mellitus [email or web address] Not available 04/14 11:07:20 Mother Hypertensive disorder [email or web address] Not available 04/14 11:08:01 Mother Hypercholest erolemia bandersonma Not available 04/14 11:08:16 Father Hypertensive disorder bandersonma Not available 04/14 11:08:01 Father Hypercholest erolemia bandersonma Not available 04/14 11:08:15 Medical History Condition Response Coronary Artery Disease N Other N Atrial Fibrillation N High Blood Pressure Y Kidney or Bladder Problems N Thyroid Problems N GI Problems N Depression N COPD N Blood Clots N Skin Problems N Anemia N Heart Attack (DE) N Anxiety Disorder N Diabetes N Muscle, Joint, or Bone Problems N Seizures/Epilepsy N Acid Reflux (GERD) N Cancer N Stroke N Asthma N Allergies Y High Cholesterol Y Hepatitis N Liver Disease N Headaches N Heart Failure N Osteoporosis N Immunizations Vaccine Type Date Status Note Provider Nam e and Address Organization Details Recorded Time COVID-19, mRNA, LNP-S, PF, 30 mcg/0.3 mL dose 06/01/2020 completed LUZ Perez, [place] [facility] 08/30/2023 10:40:57 COVID-19, mRNA, LNP-S, PF, 30 mcg/0.3 mL dose 06/22/2020 completed LUZ Perez [place] - [facility] 08/30/2023 10:40:57 Past Encounters Encounter ID Performer Location Encounter Start Date Encounter Closed Date Diagnosis/Indication Diagnosis SNOMED-CT Code Diagnosis ICD10 Code Diagnosis Note [id number] Melony Costa MD [facility] (Adult Med) [address] [place], [place] [address] [phone] 04/25/2023 10:48:04 04/25/2023 11:53:51 Essential hypertension 93982098 I10 Fatigue 30209052 R53.83 Chronic rhinitis 0231750 6 J31.0 Atrial fibrillation 4943 6004 I48.91 Hyperlipidemia 93126237 E78.5 [id number] Melony Costa MD [facility] (Adult Med) [address] [place] [address] [phone] 08/30/2023 10:30:25 08/30/2023 11:30:04 Overweight 134401685 E66.3 Hyperlipidemia 01148580 E78.5 Essential hypertension 22035568 I10 Paroxysmal atrial fibrillation 103309056 I48.0 Chronic rhinitis 7618060 6 J31.0 Prediabetes 283103651 R7 3.03 [id number] Melony Costa MD [facility] (Adult Med) [address] [place] [address] [phone] 11/29/2023 11:12:06 11/29/2023 12:34:03 Overweight 173422684 E66.3 Essential hypertension 90765561 I10 Hyperlipidemia 20568747 E78.5 Prediabetes 436454423 R7 3.03 Screening for malignant neoplasm of prostate 280150555 Z12.5 Paroxysmal atrial fibrillation 824046688 I48.0 Chronic rhinitis 6499694 6 J31.0 [id number] MD [facility] (Adult Med) [address] [place] [address] [phone] 04/03/2024 10:51:48 04/03/2024 12:03:04 Body mass index 25-29 - overweight 509722395 Z68.27 Overweight 350730809 E66 .3 Essential hypertension 43365695 I10 Hyperlipidemia 44866285 E78.5 Prediabetes 023937194 R7 3.03 Chronic rhinitis 1512837 6 J31.0 Paroxysmal atrial fibrillation 651008008 I48.0 [id number] Melony Costa MD [facility] (Adult Med) [address] [place] [address] [phone] 0 08/07/2024 10:49:33 08/07/2024 11:55:32 Overweight in adulthood with body mass index of 25 or more but less than 30 642501286 E66.3 Z68.27 Essential hypertension 25585117 I10 Hyperlipidemia 79218028 E78.5 Paroxysmal atrial fibrillation 819473773 I48.0 Prediabetes 274238615 R7 3.03 Chronic rhinitis 8405789 6 J31.0 Health Concerns Section Related Observation LastModified by Organization Detai ls LastModified Time None Recorded Concern Status LastModified by Organization Details LastModified Time None Recorded Advance Directives Directive N: Payers Insurance Date Sequence Insurance Name Policy Number Policy Mireles Covered Member ID Mireles Member ID Guarantor Name 04/08/2024 PAYMENT PLAN Roberto Kelly 08/07/2024 1 PENDING [id number] Ger Kelly [id number] Roberto Kelly 08/07/2024 1 [facility] BENEFIT PLAN [facility] [id number] Ger Kelly [id number] Roberto Kelly 08/13/2024 1 [facility] (MEDICARE REPLACEMENT/ ADVANTAGE - HMO) [id number] Roberto Kelly [id number] Roberto Kelly Notes Date Note Type Note Provider Name and Address Organization Details Recorded Time 04/25/2023 text/html 1. Chronic rhini tis this is a bad time of the year for him he is taking his medication doing about as well as he usually does. He has noticed a little bit of fatigue. Hypertension no headache or dizziness. Atrial fibrillation metoprolol diltiazem and also Eliquis. Hyperlipidemia is taking the atorvastatin try to watch diet had a colonoscopy last year Melony Costa MD Attn: Accounting, [address] [facility], [place], [address], [facility] 04/25/2023 12:03:20 08/30/2023 text/html 1. Chronic rhini tis this is a bad time of the year for him he is taking his medication doing about as well as he usually does. He has noticed a little bit of fatigue. Hypertension no headache or dizziness. Atrial fibrillation metoprolol diltiazem and also Eliquis. Hyperlipidemia is taking the atorvastatin try to watch diet had a colonoscopy last year. He also had to see the police manager for some nonspecific dermatitis on his forehead and they biopsied that results pending. Melony Costa MD Attn: Accounting, [address] [facility], [place], [address], [place] - [facility] 09/04/2023 12:13:37 11/29/2023 text/html hypertension blo od pressure 130/98 but he feels fine. Prediabetes needs an A1c is trying to watch his diet. PAF there has not been any palpitations headache stroke or stroke-like symptoms no heart failure symptoms. Chronic rhinitis comes and goes right now seems to be in a decent spot as far as control his symptomatology. Overweight having a little bit trouble cutting calories. Hyperlipidemia he is taking his medication with no side effects Melony Costa MD Attn: Accounting, [address] [facility], [place], [address], [place] [facility] 11/29/2023 22:44:57 04/03/2024 text/html blood pressure h as been doing fine rhinitis has been doing okay trying to follow a low-fat diet prediabetic he had some blood work to follow up on that atrial fibrillation anticoagulated and no symptoms Melony Costa MD Attn: Accounting, [address] [facility], [place], [address], [facility] 05/06/2024 15:55:29 08/07/2024 text/html Prediabetes need s to follow a low-fat diet and a low sugar diet dyslipidemia taking his medications trying to watch his diet PAF no palpitations chronic rhinitis seems to be stable on current medical regimen Melony Costa MD Attn: Accounting,[address] [facility], [place], [address], [facility] 08/11/2024 22:59:20
[2024-08-29 15:11] LABS: Estimated Glomerular Filt Rate > 60
== END 2024-08-29 14:34 | disposition home or self-care (01) ==
PROVIDERS: PCP Internal Medicine; Visit Provider Nurse Practitioner
DX: R36.1 Hematospermia (principal); N20.0 Calculus of kidney; N40.0 Benign prostatic hyperplasia without lower urinary tract symptoms
CPT/HCPCS: 74177; Q9967

== ENCOUNTER 2024-08-31 00:33 | Day surgery (SDC) | payer MEDICARE, SELFPAY ==
[2024-04-04 12:22] VITALS: BMI 28.3
--- NOTE | 2024-04-04 14:53 | PC.NURSE ---
Spoke with pt and he is currently doing a cardiac heart monitor and other testing for Afib. He is rescheduled to 06/05/24 pending clearance to hold [facility].
[2024-08-20 12:21] VITALS: BMI 27.2
--- NOTE | 2024-08-20 12:35 | PC.NURSE ---
Spoke with patient regarding medication Eliquis. Patient verbalizes understanding that the last dose is to be taken on 08/27/24 and the Endoscopist will instruct them when to restart after the procedure.
--- OUTSIDE RECORDS SUMMARY | 2024-08-31 00:36 | XMS_ITS | Patient Health Record ---
Author Organization [facility] ([address]) Address [address] [place] [address] Care Team Providers Care Chip Drier Name Role Phone Maurice Costa Primary Care Provider Justa Valenzuela Unavailable [phone] Allergies No Known Allergies Reason For Referral [...] review and pick correct strength-formula tion from [employer] options. If intended option is not shown, discontinue and re-order from Quick Search* Active Losartan Potassium 25 MG 1 tab(s) orally once a day Active Ketotifen Fumarate 0.025% 1 GTT IN EACH AFFECTED EYE EVERY 8 HOURS *Please review and pick correct strength-formula tion from Sk[employer]an options. If intended option is not shown, [...] Status Risk Notes Problem Chronic allergic conjunctivitis (88528126) Chronic allergic conjunctivitis NOS (372.14) Active confirmed Problem Allergic rhinitis due to allergen (29758649) Allergic rhinitis due to allergen (477.8) Active confirmed Problem Chronic allergic conjunctivitis (05270662) Other chronic allergic conjunctivitis (H10.45) Active confirmed Problem Common cold (29192245) Acute nasopharyngitis [common cold] (J00) Active confirmed Problem Acute upper respiratory infection (67610592) Acute upper respiratory infection, unspecified (J06.9) Active confirmed Problem Allergic rhinitis caused by pollen (disorder) (15127375) Allergic rhinitis due to pollen (J30.1) Active confirmed Problem Allergic rhinitis (28899389) Other allergic rhinitis (J30.89) Active confirmed Problem Cough (04722779) Cough (R05) Active confirmed Problem Vaccination given (748511765) Encounter for immunization (Z23) Active confirmed Problem Cough (finding) (54517625) Cough, unspecified (R05.9) Active confirmed Plan Of Treatment No Information Insurance Providers Payer Name Payer Address Payer Phone Subscriber Number Group Number Insured Name Patient Relationship to Insured Coverage Start Date Coverage End Date [facility] [address] [place] [address] [id number] Ger Kelly Self - patient is the insured Medical (General) History Medical History History ICD Code Hypertension Allergic rhinitis due to pollen J30.1 AFIB Surgical History Surgery Date(Month/Year) Sinus surgery Hospitalization History Reason Date(Month/Year) Afib
--- OUTSIDE RECORDS SUMMARY | 2024-08-31 00:36 | XMS_ITS | Clinical Summary ---
Author Organization [facility] Address [address] [place] [address] Care Team Providers Care Ops Manager Name Role Phone Unavailable Primary Care Provider Unavailabl e Source Comments [facility],non-owned Affiliates and Associated Physician Practices is amultiple site organization consisting of ambulatory clinics and hospital sitesin [place], [place], [place] and [place]. This disclosure is being madepursuant to the Care Everywhere program and may not contain all information available regarding this patient. Last updated 17.[facility] Social History Tobacco Use Types Packs/Day Years Used Date Smoking Tobacco: Never Assessed Sex and Gender Information Value Date Recorded Sex Assigned at Not on file Legal Sex Male 6:33 AM [employer]ING [employer]ACH[employer] Gender Identity Not on file Sexual Orientation [...] patient's age to complete this topic Insurance [facility]
--- OUTSIDE RECORDS SUMMARY | 2024-08-31 00:36 | XMS_ITS | Data Portability ---
Author Organization [facility] Carlos Eduardo Robledo Address [address] [place] [address] Care Team Providers Care Reference Librarian Name Role Phone MELONY COSTA Primary Care Provider [phone] Assessment Encounter Date Assessment Date Assessment LastModified by Organization Details LastModified Time 04/25/2023 04/25/2023 Hypertension diltiazem losartan metoprolol. A-fib metoprolol diltiazem and Eliquis. Allergies cetirizine montelukast azelastine nasal spray dyslipidemia atorvastatin and diet blood work has been ordered diagnosis of been discussed old records have been requested follow-up in 4 months [email or web address] Not available 04/25/2023 12:03:00 08/30/2023 08/30/2023 continue current therapy for his hyperlipidemia hypertension paroxysmal atrial fibrillation. Medrol Dosepak for his chronic rhinitis. For his weight healthy lifestyle care instructions were given he will follow up with me in 4 months prediabetes discussed dietary strategies discussed [email or web address] Not available 09/04/2023 12:13:02 11/29/2023 11/29/2023 blood work. Healthy lifestyle care instructions we will get his clothes colonoscopy report to close the gap. 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 but I would like to have those numbers he said that that is okay follow up with me in 4 months Not available 11/29/2023 22:44:40 04/03/2024 04/03/2024 clinically stabl e blood work ordered healthy lifestyle care instructions no change in medications rhinitis hypertension dyslipidemia trying to lose a little bit of weight PAF prediabetes evaluated discussed follow up 4 months Not available 05/06/2024 15:55:12 08/07/2024 08/07/2024 Healthy lifestyl e care instructions blood work for biochemical management of disease processes and medications colonoscopy scheduled for August of this year and he refuses HIV screening and Prevnar 20 [email or web address] Not available 08/11/2024 22:58:45 Plan of Treatment Reminders Order Date Submit Date Provider Last Modified By Organization Details Last Modified Time Details Appointments ANY 15 2024 10:15A M Melony Costa MD Not available Not available Not available Lab lipid panel, serum - Send copy to his cardiolog ist [facility]. 2024 025 [facility] (Centralized Electronic Ordering - All Locations), Patient Can Go To The Location Of Their Choice, [facility] 08/07/2024 12:54:40 CMP, serum or plasma 2024 025 [email or web address] [facility] (Centralized Electronic Ordering - All Locations), Patient Can Go To The Location Of Their Choice, [facility] 08/07/2024 12:54:40 CBC w/ auto diff 2024 025 [email or web address] [facility] (Centralized Electronic Ordering - All Locations), Patient Can Go To The Location Of Their Choice, [facility] 08/07/2024 12:54:40 HbA1c (hemoglob in A1c), blood 2024 025 STEVIE [facility]on, [address], [place], [address], 04/04/2024 07:15:19 lipid panel, serum 2024 025 STEVIE [facility]on, [address], [place], [address], 04/04/2024 07:15:17 CMP, serum or plasma 2024 025 STEVIE Labcolauren, [address], [place], [address], 04/04/2024 07:15:18 CBC w/ auto diff 2024 025 STEVIE Rivera, [address], [place], [address], 04/04/2024 07:15:20 PSA, total, serum or plasma 2023 024 STEVIE Rivera, [address], [place], [address], 12/01/2023 06:23:16 HbA1c (hemoglob in A1c), blood 2023 024 STEVIE Rivera, [address], [place], [address], 12/01/2023 06:23:14 CBC w/ auto diff 2023 024 STEVIE Rivera, [address], [place], [address], 12/01/2023 06:23:15 CMP, serum or plasma 2023 024 STEVIE Rivera, [address], [place], [address], 12/01/2023 06:23:12 lipid panel, serum 2023 024 STEVIE Rivera, [address], [place], [address], 12/01/2023 06:23:11 CMP, serum or plasma - please send copy of results to Dr Black cardiolog ist. 2023 024 STEVIE Rivera [address], [place], [address], 04/26/2023 08:21:09 CBC w/ auto diff 2023 024 STEVIE Rivera, [address], [place], [address], 04/26/2023 08:21:12 lipid panel, serum 2023 024 [facility], [address], [place], [address], 04/26/2023 08:21:07 TSH, ultra-sen sitive, serum 2023 024 [facility], [address], [place], [address], 04/26/2023 08:21:11 T3, free, serum or plasma 2023 024 [facility] [address], [place], [address], 04/26/2023 08:21:13 unlisted lab - T4, free 2023 024 [facility], [address], [place], [address], 04/26/2023 08:21:08 magnesium , serum or plasma 2023 024 [facility], [address], [place], [address], 04/26/2023 08:21:10 Referral None recorded. Procedures None recorded. Surgeries None recorded. Imaging None recorded. Medication Orders Medrol (Hung) 4 mg tablets in a dose pack 2023 024 [id number], [address], [place], [id number], 11/29/2023 11:46:19 Patient TargetsNo targets recorded. Patient Instructions Encounter Date Encounter Id Patient Instructions Last Modified By Organization Details Last Modified Time 08/30/2023 [id number] A healthy lifestyle: care instructions [email or web address] Not available 08/30/2023 11:36:46 11/29/2023 [id number] A healthy lifestyle: care instructions Not available 11/29/2023 12:30:06 04/03/2024 [id number] A healthy lifestyle: care instructions [email or web address] Not available 04/03/2024 13:04:57 08/07/2024 [id number] A healthy lifestyle: care instructions [email or web address] Not available 08/07/2024 11:48:15 Reason for Referral None Reported. Results Created Date Observation Date Name Description Value Unit Range Abnormal Flag Note LastModifiedBy Organization Detail LastModifiedTime 04/25/1904/26/2023 LIPID PANEL cholesterol, total 188 mg/dL 100-19 9 Not Available [facility] ([facility]) [address] [place], [address], 04/26/2023 08:21:07 04/25/19 24 04/26/2023 LIPID PANEL triglyceride s 221 mg/dL 0-149 above high normal Not Available [facility] ([facility]) [address] [place], [address], 04/26/2023 08:21:07 04/25/19 24 04/26/2023 LIPID PANEL HDL cholesterol 38 mg/dL >39 below low normal Not Available [facility] ([facility]) [address] [place], [address], 04/26/2023 08:21:07 04/25/19 24 04/26/2023 LIPID PANEL VLDL cholesterol carlota 39 mg/dL 5-40 Not Available [facility] ([facility]) [address] [place], [address], 04/26/2023 08:21:07 04/25/1904/26/2023 LIPID PANEL LDL chol calc ([facility]) 111 mg/dL 0-99 above high normal Not Available [facility] ([facility]) [address] [place], [address], 04/26/2023 08:21:07 04/25/19 24 04/26/2023 T4, FREE T4,free([facility] ct) 1.37 NG/dL 0.82-1 .77 Not Available [facility] ([facility]) [address] [place], [address], 04/26/2023 08:21:08 04/25/19 24 04/26/2023 COMP. METAB OLIC PANEL (14) glucose 192 mg/dL 70-99 above high normal Not Available [facility] ([facility]) [address] [place], [address], 04/26/2023 08:21:09 04/25/19 24 04/26/2023 COMP. METAB OLIC PANEL (14) BUN 9 mg/dL 8-27 Not Available [facility] ([facility]) [address] [place], [address], 04/26/2023 08:21:09 04/25/19 24 04/26/2023 COMP. METAB OLIC PANEL (14) creatinine 0.97 mg/dL 0.76-1 .27 Not Available [facility] ([facility]) [address] [place], [address], 04/26/2023 08:21:09 04/25/19 24 04/26/2023 COMP. METAB OLIC PANEL (14) eGFR 87 mL/mi n/1.7 3 >59 Not Available [facility] ([facility]) [address] [place], [address], 04/26/2023 08:21:09 04/25/19 24 04/26/2023 COMP. METAB OLIC PANEL (14) BUN/creatini ne ratio 9 10-24 below low normal Not Available [facility] ([facility]) [address] [place], [address], 04/26/2023 08:21:09 04/25/19 24 04/26/2023 COMP. METAB OLIC PANEL (14) sodium 141 mmol/ L 134-14 4 Not Available [facility] ([facility]) [address] [place], [address], 04/26/2023 08:21:09 04/25/19 24 04/26/2023 COMP. METAB OLIC PANEL (14) potassium 4.5 mmol/ L 3.5-5. 2 Not Available [facility] ([facility]) [address], [place], [address], 04/26/2023 08:21:09 04/25/19 24 04/26/2023 COMP. METAB OLIC PANEL (14) chloride 102 mmol/ L 96-106 Not Available [facility] ([facility]) [address], [place], [address], 04/26/2023 08:21:09 04/25/19 24 04/26/2023 COMP. METAB OLIC PANEL (14) carbon dioxide, total 22 mmol/ L 20-29 Not Available [facility] ([facility]) [address], [place], [address], 04/26/2023 08:21:09 04/25/19 24 04/26/2023 COMP. METAB OLIC PANEL (14) calcium 9.6 mg/dL 8.6-10 .2 Not Available [facility] ([facility]) [address], [place], [address], 04/26/2023 08:21:09 04/25/19 24 04/26/2023 COMP. METAB OLIC PANEL (14) protein, total 6.8 g/dL 6.0-8. 5 Not Available [facility] ([facility]) [address] [place], [address], 04/26/2023 08:21:09 04/25/19 24 04/26/2023 COMP. METAB OLIC PANEL (14) albumin 4.5 g/dL 3.9-4. 9 Not Available [facility] ([facility]) [address] [place], [address], 04/26/2023 08:21:09 03/11/20 24 04/26/2023 COMP. METAB OLIC PANEL (14) globulin, total 2.3 g/dL 1.5-4. 5 Not Available [facility] ([facility]) [address] [place], [address], 04/26/2023 08:21:09 04/25/19 24 04/26/2023 COMP. METAB OLIC PANEL (14) A/G ratio 2.0 1.2-2. 2 Not Available [facility] ([facility]) [address] [facility], [place], [address], 04/26/2023 08:21:09 04/25/19 24 04/26/2023 COMP. METAB OLIC PANEL (14) bilirubin, total 0.7 mg/dL 0.0-1. 2 Not Available [facility] ([facility]) [address] [place], [address], 04/26/2023 08:21:09 04/25/19 24 04/26/2023 COMP. METAB OLIC PANEL (14) alkaline phosphatase 83 IU/L 44-121 Not Available [facility] ([facility]) [address] [place], [address], 04/26/2023 08:21:09 04/25/19 24 04/26/2023 COMP. METAB OLIC PANEL (14) AST (SGOT) 22 IU/L 0-40 Not Available [facility] ([facility]) [address] [place], [address], 04/26/2023 08:21:09 04/25/19 24 04/26/2023 COMP. METAB OLIC PANEL (14) ALT (SGPT) 40 IU/L 0-44 Not Available [facility] ([facility]) [address] [place], [address], 04/26/2023 08:21:09 04/25/19 24 04/26/2023 MAGNE SIUM magnesium 1.9 mg/dL 1.6-2. 3 Not Available [facility] ([facility]) [address] [facility], [place], [address], 04/26/2023 08:21:10 04/25/19 24 04/26/2023 TSH TSH 2.010 uIU/m L 0.450- 4.500 Not Available [facility] ([facility]) [address] [facility], [place], [address], 04/26/2023 08:21:11 04/25/19 24 04/26/2023 CBC WITH DIFFE RENTI AL/PL ATELE T WBC 7.6 x10e3 /uL 3.4-10 .8 Not Available [facility] ([facility]) [address] [facility], [place], [address], 04/26/2023 08:21:12 04/25/19 24 04/26/2023 CBC WITH DIFFE RENTI AL/PL ATELE T RBC 5.25 x10e6 /uL 4.14-5 .80 Not Available [facility] ([facility]) [address] [facility], [place], [address], 04/26/2023 08:21:12 04/25/19 24 04/26/2023 CBC WITH DIFFE RENTI AL/PL ATELE T hemoglobin 16.6 g/dL 13.0-1 7.7 Not Available [facility] ([facility]) [address] [place], [address], 04/26/2023 08:21:12 04/25/19 24 04/26/2023 CBC WITH DIFFE RENTI AL/PL ATELE T hematocrit 49.6 % 37.5-5 1.0 Not Available [facility] ([facility]) [address] [facility], [place], [address], 04/26/2023 08:21:12 04/25/19 24 04/26/2023 CBC WITH DIFFE RENTI AL/PL ATELE T MCV 95 fL 79-97 Not Available [facility] ([facility]) [address] [facility], [place], [address], 04/26/2023 08:21:12 04/25/19 24 04/26/2023 CBC WITH DIFFE RENTI AL/PL ATELE T MCH 31.6 pg 26.6-3 3.0 Not Available [facility] ([facility]) [address] [facility], [place], [address], 04/26/2023 08:21:12 04/25/19 24 04/26/2023 CBC WITH DIFFE RENTI AL/PL ATELE T MCHC 33.5 g/dL 31.5-3 5.7 Not Available [facility] ([facility]) [address] [facility], [place], [address], 04/26/2023 08:21:12 04/25/19 24 04/26/2023 CBC WITH DIFFE RENTI AL/PL ATELE T RDW 12.6 % 11.6-1 5.4 Not Available [facility] ([facility]) [address] [facility], [place], [address], 04/26/2023 08:21:12 04/25/19 24 04/26/2023 CBC WITH DIFFE RENTI AL/PL ATELE T platelets 255 x10e3 /uL 150-45 0 Not Available [facility] ([facility]) [address] [facility], [place], [address], 04/26/2023 08:21:12 04/25/19 24 04/26/2023 CBC WITH DIFFE RENTI AL/PL ATELE T neutrophils 62 % notest ab. Not Available [facility] ([facility]) [address] [facility], [place], [address], 04/26/2023 08:21:12 04/25/19 24 04/26/2023 CBC WITH DIFFE RENTI AL/PL ATELE T lymphs 26 % notest ab. Not Available [facility] ([facility]) [address] [facility], [place], [address], 04/26/2023 08:21:12 04/25/19 24 04/26/2023 CBC WITH DIFFE RENTI AL/PL ATELE T monocytes 9 % notest ab. Not Available [facility] ([facility]) [address] [facility], [place], [address], 04/26/2023 08:21:12 04/25/19 24 04/26/2023 CBC WITH DIFFE RENTI AL/PL ATELE T eos 2 % notest ab. Not Available [facility] ([facility]) [address] [facility], [place], [address], 04/26/2023 08:21:12 04/25/19 24 04/26/2023 CBC WITH DIFFE RENTI AL/PL ATELE T basos 1 % notest ab. Not Available [facility] ([facility]) [address] [facility], [place], [address], 04/26/2023 08:21:12 04/25/19 24 04/26/2023 CBC WITH DIFFE RENTI AL/PL ATELE T neutrophils (absolute) 4.7 x10e3 /uL 1.4-7. 0 Not Available [facility] ([facility]) [address] [facility], [place], [address], 04/26/2023 08:21:12 04/25/19 24 04/26/2023 CBC WITH DIFFE RENTI AL/PL ATELE T lymphs (absolute) 2.0 x10e3 /uL 0.7-3. 1 Not Available [facility] ([facility]) [address] [facility], [place], [address], 04/26/2023 08:21:12 04/25/19 24 04/26/2023 CBC WITH DIFFE RENTI AL/PL ATELE T monocytes(ab solute) 0.7 x10e3 /uL 0.1-0. 9 Not Available [facility] ([facility]) [address] [facility], [place], [address], 04/26/2023 08:21:12 04/25/19 24 04/26/2023 CBC WITH DIFFE RENTI AL/PL ATELE T eos (absolute) 0.2 x10e3 /uL 0.0-0. 4 Not Available [facility] ([facility]) [address] [facility], [place], [address], 04/26/2023 08:21:12 04/25/19 24 04/26/2023 CBC WITH DIFFE RENTI AL/PL ATELE T baso (absolute) 0.1 x10e3 /uL 0.0-0. 2 Not Available [facility] ([facility]) [address] [facility], [place], [address], 04/26/2023 08:21:12 04/25/19 24 04/26/2023 CBC WITH DIFFE RENTI AL/PL ATELE T immature granulocytes 0 % notest ab. Not Available [facility] ([facility]) [address] [place], [address], 04/26/2023 08:21:12 04/25/19 24 04/26/2023 CBC WITH DIFFE RENTI AL/PL ATELE T immature grans (abs) 0.0 x10e3 /uL 0.0-0. 1 Not Available [facility] ([facility]) [address] [place], [address], 04/26/2023 08:21:12 04/25/19 24 04/26/2023 TRIIO DOTHY FABIAN E (T3), FREE triiodothyro nine (T3), free 3.3 pg/mL 2.0-4. 4 Not Available [facility] ([facility]) [address] [place], [address], 04/26/2023 08:21:13 04/29/19 24 04/30/2023 HEMOG LOBIN A1C hemoglobin A1C 6.0 % 4.8-5. 6 above high normal Predi abete s: 5.7 - 6.4 Diabe vivian: >6.4 Glyce leigh contr ol for adult s with diabe vivian: <7.0 Not Available [facility] ([facility]) [address] [facility], [place], [address], 04/30/2023 06:16:08 11/30/1912/01/2023 LIPID PANEL cholesterol, total 153 mg/dL 100-19 9 Not Available [facility] ([facility]) [address] [place], [address], 12/01/2023 06:23:11 11/30/1912/01/2023 LIPID PANEL triglyceride s 119 mg/dL 0-149 Not Available [facility] ([facility]) [address] [place], [address], 12/01/2023 06:23:11 11/30/1912/01/2023 LIPID PANEL HDL cholesterol 37 mg/dL >39 below low normal Not Available [facility] ([facility]) [address] [place], [address], 12/01/2023 06:23:11 11/30/19 24 12/01/2023 LIPID PANEL VLDL cholesterol carlota 22 mg/dL 5-40 Not Available [facility] ([facility]) [address] [place], [address], 12/01/2023 06:23:11 11/30/1912/01/2023 LIPID PANEL LDL chol calc ([facility]) 94 mg/dL 0-99 Not Available [facility] ([facility]) [address] [place], [address], 12/01/2023 06:23:11 11/30/19 24 12/01/2023 COMP. METAB OLIC PANEL (14) glucose 114 mg/dL 70-99 above high normal Not Available [facility] ([facility]) [address] [place], [address], 12/01/2023 06:23:12 11/30/19 24 12/01/2023 COMP. METAB OLIC PANEL (14) BUN 8 mg/dL 8-27 Not Available [facility] ([facility]) [address] [place], [address], 12/01/2023 06:23:12 11/30/19 24 12/01/2023 COMP. METAB OLIC PANEL (14) creatinine 0.87 mg/dL 0.76-1 .27 Not Available [facility] ([facility]) [address] [facility], [address], 12/01/2023 06:23:12 11/30/19 24 12/01/2023 COMP. METAB OLIC PANEL (14) eGFR 96 mL/mi n/1.7 3 >59 Not Available [facility] ([facility]) [address] [facility], [address], 12/01/2023 06:23:12 11/30/19 24 12/01/2023 COMP. METAB OLIC PANEL (14) BUN/creatini ne ratio 9 10-24 below low normal Not Available [facility] ([facility]) [address] [facility], [address], 12/01/2023 06:23:12 11/30/19 24 12/01/2023 COMP. METAB OLIC PANEL (14) sodium 141 mmol/ L 134-14 4 Not Available [facility] ([facility]) [address] [place], [address], 12/01/2023 06:23:12 11/30/19 24 12/01/2023 COMP. METAB OLIC PANEL (14) potassium 4.5 mmol/ L 3.5-5. 2 Not Available [facility] ([facility]) [address] [facility], [address], 12/01/2023 06:23:12 11/30/19 24 12/01/2023 COMP. METAB OLIC PANEL (14) chloride 104 mmol/ L 96-106 Not Available [facility] ([facility]) [address] [facility], [place], [address], 12/01/2023 06:23:12 11/30/19 24 12/01/2023 COMP. METAB OLIC PANEL (14) carbon dioxide, total 25 mmol/ L 20-29 Not Available [facility] ([facility]) [address] [facility], [place], [address], 12/01/2023 06:23:12 11/30/1912/01/2023 COMP. METAB OLIC PANEL (14) calcium 9.2 mg/dL 8.6-10 .2 Not Available [facility] ([facility]) [address] [facility], [place], [address], 12/01/2023 06:23:12 11/30/19 24 12/01/2023 COMP. METAB OLIC PANEL (14) protein, total 6.2 g/dL 6.0-8. 5 Not Available [facility] ([facility]) [address] [facility], [place], [address], 12/01/2023 06:23:12 11/30/19 24 12/01/2023 COMP. METAB OLIC PANEL (14) albumin 4.3 g/dL 3.9-4. 9 Not Available [facility] ([facility]) [address] [facility], [place], [address], 12/01/2023 06:23:12 11/30/19 24 12/01/2023 COMP. METAB OLIC PANEL (14) globulin, total 1.9 g/dL 1.5-4. 5 Not Available [facility] ([facility]) [address] [facility], [place], [address], 12/01/2023 06:23:12 11/30/19 24 12/01/2023 COMP. METAB OLIC PANEL (14) bilirubin, total 0.9 mg/dL 0.0-1. 2 Not Available [facility] ([facility]) [address] [place], [address], 12/01/2023 06:23:12 11/30/19 24 12/01/2023 COMP. METAB OLIC PANEL (14) alkaline phosphatase 71 IU/L 44-121 Not Available [facility] ([facility]) [address] [place], [address], 12/01/2023 06:23:12 11/30/19 24 12/01/2023 COMP. METAB OLIC PANEL (14) AST (SGOT) 16 IU/L 0-40 Not Available [facility] ([facility]) [address] [facility], [place], [address], 12/01/2023 06:23:12 11/30/19 24 12/01/2023 COMP. METAB OLIC PANEL (14) ALT (SGPT) 20 IU/L 0-44 Not Available [facility] ([facility]) [address] [facility], [place], [address], 12/01/2023 06:23:12 11/30/1912/01/2023 HEMOG LOBIN A1C hemoglobin A1C 5.8 % 4.8-5. 6 above high normal Predi abete s: 5.7 - 6.4 Diabe vivian: >6.4 Glyce leigh contr ol for adult s with diabe vivian: <7.0 Not Available [facility] ([facility]) [address] [facility], [place], [address], 12/01/2023 06:23:14 11/30/1911/30/2023 CBC WITH DIFFE RENTI AL/PL ATELE T WBC 7.2 x10e3 /uL 3.4-10 .8 Not Available [facility] ([facility]) [address] [place], [address], 12/01/2023 06:23:15 11/30/19 24 11/30/2023 CBC WITH DIFFE RENTI AL/PL ATELE T RBC 4.85 x10e6 /uL 4.14-5 .80 Not Available [facility] ([facility]) [address] [facility], [place], [address], 12/01/2023 06:23:15 11/30/19 24 11/30/2023 CBC WITH DIFFE RENTI AL/PL ATELE T hemoglobin 15.4 g/dL 13.0-1 7.7 Not Available [facility] ([facility]) [address] [facility], [place], [address], 12/01/2023 06:23:15 11/30/19 24 11/30/2023 CBC WITH DIFFE RENTI AL/PL ATELE T hematocrit 47.3 % 37.5-5 1.0 Not Available [facility] ([facility]) [address] [facility], [place], [address], 12/01/2023 06:23:15 11/30/1911/30/2023 CBC WITH DIFFE RENTI AL/PL ATELE T MCV 98 fL 79-97 above high normal Not Available [facility] ([facility]) [address] [place], [address], 12/01/2023 06:23:15 11/30/19 24 11/30/2023 CBC WITH DIFFE RENTI AL/PL ATELE T MCH 31.8 pg 26.6-3 3.0 Not Available [facility] ([facility]) [address] [place], [address], 12/01/2023 06:23:15 11/30/19 24 11/30/2023 CBC WITH DIFFE RENTI AL/PL ATELE T MCHC 32.6 g/dL 31.5-3 5.7 Not Available [facility] ([facility]) [address] [place], [address], 12/01/2023 06:23:15 11/30/19 24 11/30/2023 CBC WITH DIFFE RENTI AL/PL ATELE T RDW 12.4 % 11.6-1 5.4 Not Available [facility] ([facility]) [address] [facility], [place], [address], 12/01/2023 06:23:15 11/30/19 24 11/30/2023 CBC WITH DIFFE RENTI AL/PL ATELE T platelets 248 x10e3 /uL 150-45 0 Not Available [facility] ([facility]) [address] [facility], [place], [address], 12/01/2023 06:23:15 11/30/19 24 11/30/2023 CBC WITH DIFFE RENTI AL/PL ATELE T neutrophils 60 % notest ab. Not Available [facility] ([facility]) [address] [facility], [place], [address], 12/01/2023 06:23:15 11/30/19 24 11/30/2023 CBC WITH DIFFE RENTI AL/PL ATELE T lymphs 27 % notest ab. Not Available [facility] ([facility]) [address] [facility], [place], [address], 12/01/2023 06:23:15 11/30/19 24 11/30/2023 CBC WITH DIFFE RENTI AL/PL ATELE T monocytes 10 % notest ab. Not Available [facility] ([facility]) [address] [facility], [place], [address], 12/01/2023 06:23:15 11/30/19 24 11/30/2023 CBC WITH DIFFE RENTI AL/PL ATELE T eos 2 % notest ab. Not Available [facility] ([facility]) [address] [facility], [place], [address], 12/01/2023 06:23:15 11/30/19 24 11/30/2023 CBC WITH DIFFE RENTI AL/PL ATELE T basos 1 % notest ab. Not Available [facility] ([facility]) [address] [facility], [place], [address], 12/01/2023 06:23:15 11/30/19 24 11/30/2023 CBC WITH DIFFE RENTI AL/PL ATELE T neutrophils (absolute) 4.3 x10e3 /uL 1.4-7. 0 Not Available [facility] ([facility]) [address] [facility], [place], [address], 12/01/2023 06:23:15 11/30/1911/30/2023 CBC WITH DIFFE RENTI AL/PL ATELE T lymphs (absolute) 1.9 x10e3 /uL 0.7-3. 1 Not Available [facility] ([facility]) [address] [place], [address], 12/01/2023 06:23:15 11/30/19 24 11/30/2023 CBC WITH DIFFE RENTI AL/PL ATELE T monocytes(ab solute) 0.8 x10e3 /uL 0.1-0. 9 Not Available [facility] ([facility]) [address] [place], [address], 12/01/2023 06:23:15 11/30/19 24 11/30/2023 CBC WITH DIFFE RENTI AL/PL ATELE T eos (absolute) 0.2 x10e3 /uL 0.0-0. 4 Not Available [facility] ([facility]) [address] [place], [address], 12/01/2023 06:23:15 11/30/19 24 11/30/2023 CBC WITH DIFFE RENTI AL/PL ATELE T baso (absolute) 0.0 x10e3 /uL 0.0-0. 2 Not Available [facility] ([facility]) [address] [place], [address], 12/01/2023 06:23:15 11/30/19 24 11/30/2023 CBC WITH DIFFE RENTI AL/PL ATELE T immature granulocytes 0 % notest ab. Not Available [facility] ([facility]) [address], [place], [address], 12/01/2023 06:23:15 11/30/19 24 11/30/2023 CBC WITH DIFFE RENTI AL/PL ATELE T immature grans (abs) 0.0 x10e3 /uL 0.0-0. 1 Not Available [facility] ([facility]) [address], [place], [address], 12/01/2023 06:23:15 11/30/19 24 12/01/2023 PROST ATE-S [...] t be inter prete d as absol inaja evide nce of the prese n[facility]. Not Available [facility] ([facility]) [address], [place], [address], 12/01/2023 06:23:16 04/03/19 25 04/04/2024 LIPID PANEL cholesterol, total 140 mg/dL 100-19 9 Not Available [facility] ([facility]) [address], [place], [address], 04/04/2024 07:15:17 04/03/19 25 04/04/2024 LIPID PANEL triglyceride s 89 mg/dL 0-149 Not Available [facility] ([facility]) [address] [place], [address], 04/04/2024 07:15:17 04/03/19 25 04/04/2024 LIPID PANEL HDL cholesterol 38 mg/dL >39 below low normal Not Available [facility] ([facility]) [address] [place], [address], 04/04/2024 07:15:17 04/03/19 25 04/04/2024 LIPID PANEL VLDL cholesterol [place] 17 mg/dL 5-40 Not Available [facility] ([facility]) [address] [place], [address], 04/04/2024 07:15:17 04/03/19 25 04/04/2024 LIPID PANEL LDL chol calc ([facility]) 85 mg/dL 0-99 Not Available [facility] ([facility]) [address] [place], [address], 04/04/2024 07:15:17 04/03/19 25 04/04/2024 COMP. METAB OLIC PANEL (14) glucose 91 mg/dL 70-99 Not Available [facility] ([facility]) [address] [place], [address], 04/04/2024 07:15:18 04/03/19 25 04/04/2024 COMP. METAB OLIC PANEL (14) BUN 10 mg/dL 8-27 Not Available [facility] ([facility]) [address] [place], [address], 04/04/2024 07:15:18 04/03/19 25 04/04/2024 COMP. METAB OLIC PANEL (14) creatinine 0.92 mg/dL 0.76-1 .27 Not Available [facility] ([facility]) [address] [place], [address], 04/04/2024 07:15:18 04/03/19 25 04/04/2024 COMP. METAB OLIC PANEL (14) eGFR 92 mL/mi n/1.7 3 >59 Not Available [facility] ([facility]) [address], [place], [address], 04/04/2024 07:15:18 04/03/19 25 04/04/2024 COMP. METAB OLIC PANEL (14) BUN/creatini ne ratio 11 10-24 Not Available [facility] ([facility]) [address], [place], [address], 04/04/2024 07:15:18 04/03/19 25 04/04/2024 COMP. METAB OLIC PANEL (14) sodium 143 mmol/ L 134-14 4 Not Available [facility] ([facility]) [address], [place], [address], 04/04/2024 07:15:18 04/03/19 25 04/04/2024 COMP. METAB OLIC PANEL (14) potassium 4.9 mmol/ L 3.5-5. 2 Not Available [facility] ([facility]) [address], [place], [address], 04/04/2024 07:15:18 04/03/19 25 04/04/2024 COMP. METAB OLIC PANEL (14) chloride 105 mmol/ L 96-106 Not Available [facility] ([facility]) [address], [place], [address], 04/04/2024 07:15:18 04/03/19 25 04/04/2024 COMP. METAB OLIC PANEL (14) carbon dioxide, total 27 mmol/ L 20-29 Not Available [facility] ([facility]) [address], [place], [address], 04/04/2024 07:15:18 04/03/19 25 04/04/2024 COMP. METAB OLIC PANEL (14) calcium 9.3 mg/dL 8.6-10 .2 Not Available [facility] ([facility]) [address] [place], [address], 04/04/2024 07:15:18 04/03/19 25 04/04/2024 COMP. METAB OLIC PANEL (14) protein, total 6.3 g/dL 6.0-8. 5 Not Available [facility] ([facility]) [address], [place], [address], 04/04/2024 07:15:18 04/03/19 25 04/04/2024 COMP. METAB OLIC PANEL (14) albumin 4.4 g/dL 3.9-4. 9 Not Available [facility] ([facility]) [address] [place], [address], 04/04/2024 07:15:18 04/03/19 25 04/04/2024 COMP. METAB OLIC PANEL (14) globulin, total 1.9 g/dL 1.5-4. 5 Not Available [facility] ([facility]) [address] [place], [address], 04/04/2024 07:15:18 04/03/19 25 04/04/2024 COMP. METAB OLIC PANEL (14) bilirubin, total 0.8 mg/dL 0.0-1. 2 Not Available [facility] ([facility]) [address] [place], [address], 04/04/2024 07:15:18 04/03/19 25 04/04/2024 COMP. METAB OLIC PANEL (14) alkaline phosphatase 79 IU/L 44-121 Not Available [facility] ([facility]) [address] [place], [address], 04/04/2024 07:15:18 04/03/19 25 04/04/2024 COMP. METAB OLIC PANEL (14) AST (SGOT) 15 IU/L 0-40 Not Available [facility] ([facility]) [address] [place], [address], 04/04/2024 07:15:18 04/03/19 25 04/04/2024 COMP. METAB OLIC PANEL (14) ALT (SGPT) 23 IU/L 0-44 Not Available [facility] ([facility]) [address], [place], [address], 04/04/2024 07:15:18 04/03/19 25 04/04/2024 HEMOG LOBIN A1C hemoglobin A1C 6.0 % 4.8-5. 6 above high normal Predi abete s: 5.7 - 6.4 Diabe vivian: >6.4 Glyce leigh contr ol for adult s with diabe vivian: <7.0 Not Available [facility] ([facility]) [address], [place], [address], 04/04/2024 07:15:19 04/03/19 25 04/04/2024 CBC WITH DIFFE RENTI AL/PL ATELE T WBC 6.3 x10e3 /uL 3.4-10 .8 Not Available [facility] ([facility]) [address] [place], [address], 04/04/2024 07:15:20 04/03/19 25 04/04/2024 CBC WITH DIFFE RENTI AL/PL ATELE T RBC 4.95 x10e6 /uL 4.14-5 .80 Not Available [facility] ([facility]) [address] [place], [address], 04/04/2024 07:15:20 04/03/19 25 04/04/2024 CBC WITH DIFFE RENTI AL/PL ATELE T hemoglobin 16.0 g/dL 13.0-1 7.7 Not Available [facility] ([facility]) [address] [place], [address], 04/04/2024 07:15:20 04/03/19 25 04/04/2024 CBC WITH DIFFE RENTI AL/PL ATELE T hematocrit 48.0 % 37.5-5 1.0 Not Available [facility] ([facility]) [address], [place], [address], 04/04/2024 07:15:20 04/03/19 25 04/04/2024 CBC WITH DIFFE RENTI AL/PL ATELE T MCV 97 fL 79-97 Not Available [facility] ([facility]) [address], [place], [address], 04/04/2024 07:15:20 04/03/19 25 04/04/2024 CBC WITH DIFFE RENTI AL/PL ATELE T MCH 32.3 pg 26.6-3 3.0 Not Available [facility] ([facility]) [address], [place], [address], 04/04/2024 07:15:20 04/03/19 25 04/04/2024 CBC WITH DIFFE RENTI AL/PL ATELE T MCHC 33.3 g/dL 31.5-3 5.7 Not Available [facility] ([facility]) [address], [place], [address], 04/04/2024 07:15:20 04/03/19 25 04/04/2024 CBC WITH DIFFE RENTI AL/PL ATELE T RDW 12.1 % 11.6-1 5.4 Not Available [facility] ([facility]) [address], [place], [address], 04/04/2024 07:15:20 04/03/19 25 04/04/2024 CBC WITH DIFFE RENTI AL/PL ATELE T platelets 281 x10e3 /uL 150-45 0 Not Available [facility] ([facility]) [address] [place], [address], 04/04/2024 07:15:20 04/03/19 25 04/04/2024 CBC WITH DIFFE RENTI AL/PL ATELE T neutrophils 66 % notest ab. Not Available [facility] ([facility]) [address], [place], [address], 04/04/2024 07:15:20 04/03/19 25 04/04/2024 CBC WITH DIFFE RENTI AL/PL ATELE T lymphs 21 % notest ab. Not Available [facility] ([facility]) [address], [place], [address], 04/04/2024 07:15:20 04/03/19 25 04/04/2024 CBC WITH DIFFE RENTI AL/PL ATELE T monocytes 11 % notest ab. Not Available [facility] ([facility]) [address], [place], [address], 04/04/2024 07:15:20 04/03/19 25 04/04/2024 CBC WITH DIFFE RENTI AL/PL ATELE T eos 1 % notest ab. Not Available [facility] ([facility]) [address], [place], [address], 04/04/2024 07:15:20 04/03/19 25 04/04/2024 CBC WITH DIFFE RENTI AL/PL ATELE T basos 1 % notest ab. Not Available [facility] ([facility]) [address], [place], [address], 04/04/2024 07:15:20 04/03/19 25 04/04/2024 CBC WITH DIFFE RENTI AL/PL ATELE T neutrophils (absolute) 4.2 x10e3 /uL 1.4-7. 0 Not Available [facility] ([facility]) [address], [place], [address], 04/04/2024 07:15:20 04/03/19 25 04/04/2024 CBC WITH DIFFE RENTI AL/PL ATELE T lymphs (absolute) 1.3 x10e3 /uL 0.7-3. 1 Not Available [facility] ([facility]) [address], [place], [address], 04/04/2024 07:15:20 04/03/19 25 04/04/2024 CBC WITH DIFFE RENTI AL/PL ATELE T monocytes(ab solute) 0.7 x10e3 /uL 0.1-0. 9 Not Available [facility] ([facility]) [address], [place], [address], 04/04/2024 07:15:20 04/03/19 25 04/04/2024 CBC WITH DIFFE RENTI AL/PL ATELE T eos (absolute) 0.1 x10e3 /uL 0.0-0. 4 Not Available [facility] ([facility]) [address], [place], [address], 04/04/2024 07:15:20 04/03/19 25 04/04/2024 CBC WITH DIFFE RENTI AL/PL ATELE T baso (absolute) 0.1 x10e3 /uL 0.0-0. 2 Not Available [facility] ([facility]) [address], [place], [address], 04/04/2024 07:15:20 04/03/19 25 04/04/2024 CBC WITH DIFFE RENTI AL/PL ATELE T immature granulocytes 0 % notest ab. Not Available [facility] ([facility]) [address], [place], [address], 04/04/2024 07:15:20 04/03/19 25 04/04/2024 CBC WITH DIFFE RENTI AL/PL ATELE T immature grans (abs) 0.0 x10e3 /uL 0.0-0. 1 Not Available [facility] ([facility]) [address] [place], [address], 04/04/2024 07:15:20 06/17/19 24 06/16/2023 US, duple x, carot id arter y No observ ation record ed. [facility] [address], [place], [address], 06/24/2023 10:37:26 06/17/19 24 US, duple x, carot id arter y No observ ation record ed. [facility] [address], [place], [address], 06/24/2023 10:38:20 06/24/19 24 US, duple x, carot id arter y No observ ation record ed. [facility] [address], [place], [address], 06/24/2023 10:37:26 05/11/19 25 05/09/2024 US, echoc ardio gram No observ ation record ed. [email or web address] [facility] [address], [place], [address], 05/11/2024 09:47:47 08/31/1908/29/2024 imagi ng/di agnos tic resul t No observ ation record ed. [facility] [address], [place], [address], 08/30/2024 07:22:17 Result Notes None recorded. Problems Name Problem SNOMED Code Status Onset Date Resolution Date Notes Provider Name and Address Organization Details Recorded Time Hyperlipidemia 39301836 Active 2023 Melony Costa MD Attn: Paulino montero,[address] [facility], [place], [address], [facility] 4 11:01:33 Essential hypertension 01886012 Active 2023 Melony Costa MD Attn: Paulino montero,[address] [facility], [place], [address], [facility] 4 11:01:35 Paroxysmal atrial fibrillation 605348453 Active 2023 Melony Costa MD Attn: Paulino montero,[address] [facility], [place], [address], [facility] - [facility] 4 11:01:37 Chronic rhinitis 86145650 Active 2023 Melanie Mesa MA [facility], [place] - [facility] 4 11:29:21 Prediabetes 889590422 Active 2023 Melony Costa MD Attn: Paulino montero,[address] [facility], [place], [address], [facility] - [facility] 4 11:31:20 Overweight 631056290 Active 2023 Melony Costa MD Attn: Paulino montero,[address] [facility], [place], [address], [facility] - [facility] 4 11:31:29 Problem Notes None recorded. Procedures Surgical History Date Name Laterality Status Provider Name and Address Organization Details Recorded Time operation on stomach completed Clifton Hardy [place] - [facility] 04/25/2023 11:21:09 Imaging Results None recorded. Procedure [...] TAKE 1 TABLET BY MOUTH EVERY DAY 03/11 /2024 completed Not Available Not Available Not Available [...] Updated DateTime 5 180.34 cm 27.9 kg/m2 78501.4 7 g 68 /min 96 % 96 % 130/84 mm[Hg] [place], [place] - [facility] 5 11:21:17 Date Recorded Body height Body mass index (BMI) Body weight Heart rate Oxygen saturation Oxygen saturation in Arterial blood by Pulse oximetry Systolic And Diastolic Provider Name and Address Organization Details Last Updated DateTime 4 180.34 cm 28 kg/m2 75274.0 7 g 57 /min 97 % 97 % 134/76 mm[Hg] Clifton Hardy [place] [facility] 4 11:27:02 Date Recorded Body height Body mass index (BMI) Body weight Heart rate Oxygen saturation Oxygen saturation in Arterial blood by Pulse oximetry Systolic And Diastolic Provider Name and Address Organization Details Last Updated DateTime 5 180.34 cm 27.1 kg/m2 98865.3 6 g 78 /min 98 % 98 % 122/68 mm[Hg] Vicki LUZ Gautam [facility] 5 11:12:10 Date Recorded Body height Body mass index (BMI) Body weight Heart rate Oxygen saturation Oxygen saturation in Arterial blood by Pulse oximetry Systolic And Diastolic Provider Name and Address Organization Details Last Updated DateTime 4 180.34 cm 27.1 kg/m2 80370.9 2 g 90 /min 97 % 97 % 124/80 mm[Hg] Clifton Hardy [place] [facility] 4 10:47:53 Date Recorded Body height Body mass index (BMI) Body weight Heart rate Oxygen saturation Oxygen saturation in Arterial blood by Pulse oximetry Systolic And Diastolic Provider Name and Address Organization Details Last Updated DateTime 4 180.34 cm 27.9 kg/m2 67296.5 5 g 99 /min 97 % 97 % 130/98 mm[Hg] Sabina Lees [place] [facility] 4 11:45:26 Social History Question Answer Notes LastModified by Organizat ion Details LastModified Time Tobacco Smoking Status Never Smoker Clifton Hardy [place] null, [facility] 04/25/2023 11:09:10 Do You Have An Advance [...] Atrial Fibrillation N High Blood Pressure Y Thyroid Problems N Kidney or Bladder Problems N Depression N COPD N Blood Clots N GI Problems N Skin Problems N Anemia N Heart Attack (DE) N Diabetes N Anxiety Disorder N Muscle, Joint, or Bone Problems N Seizures/Epilepsy N Acid Reflux (GERD) N Cancer N Stroke N Allergies Y Asthma N High Cholesterol Y Hepatitis N Liver Disease N Headaches N Osteoporosis N Heart Failure N Immunizations Vaccine Type Date Status Note Provider Nam e and Address Organization Details Recorded Time COVID-19, mRNA, LNP-S, PF, 30 mcg/0.3 mL dose 06/01/2020 completed LUZ Perez [place] - [facility] 08/30/2023 10:40:57 COVID-19, mRNA, LNP-S, PF, 30 mcg/0.3 mL dose 06/22/2020 completed LUZ Perez [place] - [facility] 08/30/2023 10:40:57 Past Encounters Encounter ID Performer Location Encounter Start Date Encounter Closed Date Diagnosis/Indication Diagnosis SNOMED-CT Code Diagnosis ICD10 Code Diagnosis Note [id number] Melony Costa MD [facility] (Adult Med) [address] [place] [phone] 04/25/2023 10:48:04 04/25/2023 11:53:51 Essential hypertension 45092148 I10 Fatigue 57411872 R53.83 Chronic rhinitis 3877847 6 J31.0 Atrial fibrillation 4943 6004 I48.91 Hyperlipidemia 88316302 E78.5 [id number] Melony Costa MD [facility] (Adult Med) [address] [place] [phone] 08/30/2023 10:30:25 08/30/2023 11:30:04 Overweight 125296267 E66.3 Hyperlipidemia 81257934 E78.5 Essential hypertension 69007194 I10 Paroxysmal atrial fibrillation 976249896 I48.0 Chronic rhinitis 7010321 6 J31.0 Prediabetes 791017950 R7 3.03 [id number] MD [place] (Adult Med) [address] [place] [phone] 11/29/2023 11:12:06 11/29/2023 12:34:03 Overweight 496619228 E66.3 Essential hypertension 30567715 I10 Hyperlipidemia 07149676 E78.5 Prediabetes 023733155 R7 3.03 Screening for malignant neoplasm of prostate 246122147 Z12.5 Paroxysmal atrial fibrillation 064606159 I48.0 Chronic rhinitis 8251210 6 J31.0 [id number] Melony Costa MD [facility] (Adult Med) [address] [place] [phone] 04/03/2024 10:51:48 04/03/2024 12:03:04 Body mass index 25-29 - overweight 972987388 Z68.27 Overweight 910620451 E66 .3 Essential hypertension 66837325 I10 Hyperlipidemia 79705282 E78.5 Prediabetes 628338032 R7 3.03 Chronic rhinitis 1127785 6 J31.0 Paroxysmal atrial fibrillation 754299943 I48.0 [id number] Melony Costa MD [facility] (Adult Med) [address] [place] [phone] 08/07/2024 10:49:33 08/07/2024 11:55:32 Overweight in adulthood with body mass index of 25 or more but less than 30 185542698 E66.3 Z68.27 Essential hypertension 33690514 I10 Hyperlipidemia 08204645 E78.5 Paroxysmal atrial fibrillation 490821730 I48.0 Prediabetes 488238116 R7 3.03 Chronic rhinitis 1962197 6 J31.0 Health Concerns Section Related Observation LastModified by Organization Detai ls LastModified Time None Recorded Concern Status LastModified by Organization Details LastModified Time None Recorded Advance Directives Directive N: Payers Insurance Date Sequence Insurance Name Policy Number Policy Mireles Covered Member ID Mireles Member ID Guarantor Name 04/08/2024 PAYMENT PLAN Roberto Kelly 08/07/2024 1 PENDING [id number] Ger Kelly [id number] Roberto Kelly 08/07/2024 1 [facility] BENEFIT PLAN [facility] [id number] Ger Kelly [id number] Roberto Kelly 08/13/2024 1 [facility] (MEDICARE REPLACEMENT/ ADVANTAGE - HMO) [id number] Roberto Resendiz Robin [id number] Roberto Kelly Notes Date Note Type Note [...] year Melony Costa MD Attn: Accounting, [address] [facility], [place], [address], [facility] 04/25/2023 12:03:20 08/30/2023 text/html 1. Chronic rhini [...] year. He also had to see the parts professional for some nonspecific dermatitis on his forehead and they biopsied that results pending. Meolny Costa MD Attn: Accounting, [address] [facility], [place], [address], [facility] 09/04/2023 12:13:37 11/29/2023 text/html hypertension [...] effects Melony Costa MD Attn: Accounting, [address] [facility], [place], [address], [facility] 11/29/2023 22:44:57 04/03/2024 text/html blood pressure h as been doing fine rhinitis has been doing okay trying to follow a low-fat diet prediabetic he had some blood work to follow up on that atrial fibrillation anticoagulated and no symptoms Melony Costa MD Attn: Accounting,[address] [facility], [place], [address], [facility] 05/06/2024 15:55:29 08/07/2024 text/html Prediabetes need s to follow a low-fat diet and a low sugar diet dyslipidemia taking his medications trying to watch his diet PAF no palpitations chronic rhinitis seems to be stable on current medical regimen Melony Costa MD Attn: Accounting,[address] [facility], [place], [address], [facility] 08/11/2024 22:59:20
--- OUTSIDE RECORDS SUMMARY | 2024-08-31 00:36 | XMS_ITS | Encounter Summary ---
Author Organization [facility] Address [address] [facility] [place] [address] Care Team Providers Care Computer Engineering Technologist Name Role Phone Unavailable Primary Care Provider Unavailabl e Encounter Details Date Type Department Care Team (Late st Contact Info) Description 08/22/2023 Lab Requisition [facility] - DermPath Lab [address] [place] [phone] Trav Snowden MD [address] [place] [address] Social History Tobacco Use Types Packs/Day Years Used Date Smoking Tobacco: Never Assessed Sex and Gender Information Value Date Recorded Sex Assigned at Not on file Legal Sex Male 6:33 AM [employer] Gender Identity Not on file Sexual Orientation Not on file documented as of this encounter Plan of Treatment Not on file documented as of this encounter Procedures Procedure Name Priority Date/Time Associated Diagnosis Comments DERMATOPATHOLOGY Routine 08/22/2023 12:0 0 AM CDT documented in this encounter Results * DERMATOPATHOLOGY (08/22/2023 12:00 AM CDT) Case Report Dermatopathology Report Case: [id number] Authorizing Provider: Trav Snowden MD Collected: 08/22/2023 12:00 AM Ordering Location: [facility] - Received: 08/22/2023 03:22 PM [...] characteristic determined by the Dermatopathology Laboratory at [facility], directed by Dr. Ric Puentes. These tests need not be, and therefore are not, approved by the [place] Food and Drug Administration. The tests are used for clinical purposes. Billing Codes Specimen Charges Stain Charges 99801 90811 1 1 24124 40035 31139 72400 1 1 1 1 4 4:50 PM CDT DERMATOPATHOLOGY LABORATORY Embedded Images 4 4:50 PM CDT DERMATOPATHOLOGY LABORATORY Pathology/Cytology TISSUE SPECIMEN FROM SKIN / Unknown 08/22/2023 08/22/2023 3:22 PM CDT Miscellaneous samples (specimen) TISSUE SPECIMEN FROM SKIN / Unknown 08/22/2023 08/22/2023 3:22 PM CDT us Trav Snowden MD LAB - PATHOLOGY/CYTOLOGY ORDERAB LES Final Result DERMATOPATHOLOGY LABORATORY [facility] - Department of Dermatology [facility] [address] [place] [address], [address] [phone] documented in this encounter Visit Diagnoses Not on filedocumented in this encounter
--- OUTSIDE RECORDS SUMMARY | 2024-08-31 00:36 | XMS_ITS | Data Portability ---
Author Organization [facility], Main Office Address [address] [place] [address] Assessment Encounter Date Assessment Date Assessment LastModified by Organization Details LastModified Time 05/18/2022 05/18/2022 Low-fat diet continue current therapy he will follow-up in 6 months colonoscopy ordered as well as blood work Not available 06/20/2022 21:33:18 11/16/2022 11/16/2022 Continue current therapy follow-up in 6 months Not available 11/28/2022 15:54:43 12/30/2022 12/30/2022 Intussusception resolved AFib now in sinus mechanism see me back in 6 months [email or web address] Not available 01/04/2023 11:44:17 Plan of Treatment Reminders Order Date Submit Date Provider Last Modified By Organization Details Last Modified Time Details Appointments None recorded. Lab PSA, total, serum or plasma 2022 023 [facility] (Lab), [address] [place], [address], 3 17:00:29 CBC w/ auto diff 2022 023 [email or web address] [facility] (Lab), [address] [place], [address], 3 15:23:00 CMP, serum or plasma 2022 023 [facility] (Lab), [address] [place], [address], 3 16:48:45 lipid panel, serum 2022 023 [email or web address] [facility] (Lab), [address] [place], [address], 16:48:47 Referral None recorded. Procedures colonoscopy screening (PROC) 2022 023 [email or web address] Yary Isbell MD, [address] [facility], [address], [place], [address], 14:17:52 Surgeries None recorded. Imaging None recorded. Medication Orders None recorded. Patient TargetsNo targets recorded. Patient InstructionsNo instructions recorded. Reason for Referral None Reported. Results Created Date Observation Date Name Description Value Unit Range Abnormal Flag Note LastModifiedBy Organization Detail LastModifiedTime 05/19/1905/18/2022 CBC/C OMPLE TE BLD COUNT W/DIF F white blood cells 7.3 x10'3 /uL 4.2-10 .8 Not Available [facility] (Lab) [address] [place], [address], 05/18/2022 14:43:41 05/19/19 23 05/18/2022 CBC/C OMPLE TE BLD COUNT W/DIF F red blood cells 5.07 x10'6 /uL 4.10-5 .80 Not Available [facility] (Lab) [address] [place], [address], 05/18/2022 14:43:41 05/19/19 23 05/18/2022 CBC/C OMPLE TE BLD COUNT W/DIF F hemoglobin 16.2 g/dL 13.2-1 7.0 Not Available [facility] (Lab) [address] [place], [address], 05/18/2022 14:43:41 05/19/19 23 05/18/2022 CBC/C OMPLE TE BLD COUNT W/DIF F hematocrit 49.2 % 39.3-5 0.0 Not Available [facility] (Lab) [address] [place], [address], 05/18/2022 14:43:41 05/19/19 23 05/18/2022 CBC/C OMPLE TE BLD COUNT W/DIF F mean red cell volume 97.0 fL 80.0-9 7.0 Not Available [facility] (Lab) [address] [place], [address], 05/18/2022 14:43:41 05/19/19 23 05/18/2022 CBC/C OMPLE TE BLD COUNT W/DIF F mean red cell hemoglobin 32.0 pg 27.0-3 3.0 Not Available [facility] (Lab) [address] [place], [address], 05/18/2022 14:43:41 05/19/19 23 05/18/2022 CBC/C OMPLE TE BLD COUNT W/DIF F mean RBC HGB concentratio n 32.9 g/dL 31.0-3 6.0 Not Available [facility] (Lab) [address] [facility] [place], [address], 05/18/2022 14:43:41 05/19/19 23 05/18/2022 CBC/C OMPLE TE BLD COUNT W/DIF F red cell distribution width 13.0 % 11.8-1 5.5 Not Available [facility] (Lab) [address] [place], [address], 05/18/2022 14:43:41 05/19/19 23 05/18/2022 CBC/C OMPLE TE BLD COUNT W/DIF F platelets 274 x10'3 /uL 150-40 0 Not Available [facility] (Lab) [address] [place], [address], 05/18/2022 14:43:41 05/19/19 23 05/18/2022 CBC/C OMPLE TE BLD COUNT W/DIF F mean platelet volume 9.6 fL 9.0-12 .4 Not Available [facility] (Lab) [address] [place], [address], 05/18/2022 14:43:41 05/19/19 23 05/18/2022 CBC/C OMPLE TE BLD COUNT W/DIF F neutrophils 62.5 % 39.0-7 2.0 Not Available [facility] (Lab) [address] [place], [address], 05/18/2022 14:43:41 05/19/19 23 05/18/2022 CBC/C OMPLE TE BLD COUNT W/DIF F lymphocytes 25.3 % 16.0-4 7.0 Not Available [facility] (Lab) [address] [place], [address], 05/18/2022 14:43:41 05/19/19 23 05/18/2022 CBC/C OMPLE TE BLD COUNT W/DIF F monocytes 9.6 % 5.0-12 .0 Not Available [facility] (Lab) [address] [place], [address], 05/18/2022 14:43:41 05/19/19 23 05/18/2022 CBC/C OMPLE TE BLD COUNT W/DIF F eosinophils 1.6 % 1.0-7. 0 Not Available [facility] (Lab) [address] [place], [address], 05/18/2022 14:43:41 05/19/19 23 05/18/2022 CBC/C OMPLE TE BLD COUNT W/DIF F basophils 0.7 % 0.0-2. 0 Not Available [facility] (Lab) [address] [place], [address], 05/18/2022 14:43:41 05/19/19 23 05/18/2022 CBC/C OMPLE TE BLD COUNT W/DIF F immature granulocytes 0.3 % 0.00-0 .50 Not Available [facility] (Lab) [address] [place], [address], 05/18/2022 14:43:41 05/19/1905/18/2022 CBC/C OMPLE TE BLD COUNT W/DIF F neutrophils, absolute count 4.56 x10'3 /uL 1.5-8. 0 Not Available [facility] (Lab) [address] [place], [address], 05/18/2022 14:43:41 05/19/19 23 05/18/2022 CBC/C OMPLE TE BLD COUNT W/DIF F lymphocytes, absolute count 1.85 x10'3 /uL 1.07-3 .43 Not Available [facility] (Lab) [address] [place], [address], 05/18/2022 14:43:41 05/19/1905/18/2022 CBC/C OMPLE TE BLD COUNT W/DIF F monocytes, absolute count 0.70 x10'3 /uL 0.29-0 .99 Not Available [facility] (Lab) [address] [place], [address], 05/18/2022 14:43:41 05/19/19 23 05/18/2022 CBC/C OMPLE TE BLD COUNT W/DIF F eosinophils, absolute count 0.12 x10'3 /uL 0.02-0 .53 Not Available [facility] (Lab) [address] [place], [address], 05/18/2022 14:43:41 05/19/19 23 05/18/2022 CBC/C OMPLE TE BLD COUNT W/DIF F basophils, absolute count 0.05 x10'3 /uL 0.01-0 .08 Not Available [facility] (Lab) [address] [place], [address], 05/18/2022 14:43:41 05/19/19 23 05/18/2022 CBC/C OMPLE TE BLD COUNT W/DIF F immature granulocytes ,absolute 0.02 x10'3 /uL 0.00-0 .05 Not Available [facility] (Lab) [address] [place], [address], 05/18/2022 14:43:41 05/19/19 23 05/18/2022 CBC/C OMPLE TE BLD COUNT W/DIF F nucleated red blood cells 0.0 % -0 Not Available [facility] (Lab) [address] [place], [address], 05/18/2022 14:43:41 05/19/19 23 05/18/2022 CBC/C OMPLE TE BLD COUNT W/DIF F NRBC# 0.00 x10'3 /uL Not Available [facility] (Lab) [address] [place], [address], 05/18/2022 14:43:41 05/19/19 23 05/18/2022 COMPR EHENS SALINA METAB OLIC PANEL sodium 139 mmol/ L 137-14 5 Not Available [facility] (Lab) [address] [place], [address], 05/18/2022 16:48:45 05/19/19 23 05/18/2022 COMPR EHENS SALINA METAB OLIC PANEL potassium 4.7 mmol/ L 3.5-5. 1 Not Available [facility] (Lab) [address] [place], [address], 05/18/2022 16:48:45 05/19/19 23 05/18/2022 COMPR EHENS SALINA METAB OLIC PANEL chloride 104 mmol/ L 98-107 Not Available [facility] (Lab) [address] [place], [address], 05/18/2022 16:48:45 05/19/19 23 05/18/2022 COMPR EHENS SALINA METAB OLIC PANEL carbon dioxide 27 mmol/ L 22-30 Not Available [facility] (Lab) [address] [place], [address], 05/18/2022 16:48:45 05/19/19 23 05/18/2022 COMPR EHENS SALINA METAB OLIC PANEL anion gap 12.7 mmol/ L 14-22 low Not Available [facility] (Lab) [address] [place], [address], 05/18/2022 16:48:45 05/19/19 23 05/18/2022 COMPR EHENS SALINA METAB OLIC PANEL glucose 92 mg/dL 70-99 Not Available [facility] (Lab) [address] [place], [address], 05/18/2022 16:48:45 05/19/19 23 05/18/2022 COMPR EHENS SALINA METAB OLIC PANEL BUN 10 mg/dL 8-19 Not Available [facility] (Lab) [address] [place], [address], 05/18/2022 16:48:45 05/19/19 23 05/18/2022 COMPR EHENS SALINA METAB OLIC PANEL creatinine 0.82 mg/dL 0.66-1 .25 Not Available [facility] (Lab) [address] [place], [address], 05/18/2022 16:48:45 05/19/19 23 05/18/2022 COMPR EHENS SALINA METAB OLIC PANEL GFR >60 Refer ence Range : Muir ge GFR Healt hy Adult : >60 [...] calcu lator is avail able on the [facility] websi te: [email or web address] :[email or web address] ional s/kdo qi/gf r_cal culat or Not Available [facility] (Lab) [address] [place], [address], 05/18/2022 16:48:45 05/19/19 23 05/18/2022 COMPR EHENS SALINA METAB OLIC PANEL alkaline phosphatase 62 U/L 38-126 Not Available [facility] (Lab) [address] [place], [address], 05/18/2022 16:48:45 05/19/19 23 05/18/2022 COMPR EHENS SALINA METAB OLIC PANEL alanine aminotransfe rase 30 U/L 0-50 Not Available [facility] (Lab) [address] [place], [address], 05/18/2022 16:48:45 05/19/19 23 05/18/2022 COMPR EHENS SALINA METAB OLIC PANEL aspartate aminotransfe rase 25 U/L 15-46 Not Available [facility] (Lab) [address] [place], [address], 05/18/2022 16:48:45 05/19/19 23 05/18/2022 COMPR EHENS SALINA METAB OLIC PANEL bilirubin, total 1.10 mg/dL 0.20-1 .30 Not Available [facility] (Lab) [address] [place], [address], 05/18/2022 16:48:45 05/19/19 23 05/18/2022 COMPR EHENS SALINA METAB OLIC PANEL calcium 9.5 mg/dL 8.4-10 .2 Not Available [facility] (Lab) [address] [place], [address], 05/18/2022 16:48:45 05/19/19 23 05/18/2022 COMPR EHENS SALINA METAB OLIC PANEL total protein 6.9 g/dL 6.3-8. 2 Not Available [facility] (Lab) [address] [facility] [place], [address], 05/18/2022 16:48:45 05/19/19 23 05/18/2022 COMPR EHENS SALINA METAB OLIC PANEL albumin 4.3 g/dL 3.0-4. 4 Not Available [facility] (Lab) [address] [place], [address], 05/18/2022 16:48:45 05/19/19 23 05/18/2022 COMPR EHENS SALINA METAB OLIC PANEL globulin 2.6 g/dL 2.6-4. 2 Not Available [facility] (Lab) [address] [place], [address], 05/18/2022 16:48:45 05/19/19 23 05/18/2022 COMPR EHENS SALINA METAB OLIC PANEL A/G ratio 1.7 ratio 1.0-2. 0 Not Available [facility] (Lab) [address] [place], [address], 05/18/2022 16:48:45 05/19/19 23 05/18/2022 LIPID PANEL cholesterol 144 mg/dL 140-19 9 NIH LEIDY NSUS RECOM MENDA TION FOR HECTOR STERO L: ADULT CHILD LOW RISK: <200 <170 BORDE RLINE : <200- 239 ----- HIGH RISK: >240 >200 Not Available [facility] (Lab) [address] [place], [address], 05/18/2022 16:48:47 05/19/19 23 05/18/2022 LIPID PANEL triglyceride s 118 mg/dL 0-150 NIH LEIDY NSUS REPOR T RECOM MENDA TION FOR TRIGL YCERI NEHA: ADULT CHILD LOW RISK: <150 ----- BODER LINE: 150-1 99 ----- HIGH RISK: >200 ----- Not Available [facility] (Lab) [address] [place], [address], 05/18/2022 16:48:47 05/19/19 23 05/18/2022 LIPID PANEL HDL cholesterol 43 mg/dL 40- Not Available [facility] (Lab) [address] [place], [address], 05/18/2022 16:48:47 05/19/19 23 05/18/2022 LIPID PANEL [...] WILL NOT BE REPOR LOGAN. Not Available [facility] (Lab) [address] [place], [address], 05/18/2022 16:48:47 05/19/19 23 05/18/2022 PSA SCREE N PSA medicare screen 2.45 NG/mL 0.00-4 .00 Not Available [facility] (Lab) [address] [place], [address], 05/18/2022 17:00:29 01/20/20 23 01/19/2023 COMPR EHENS SALINA METAB OLIC PANEL sodium 140 mmol/ L 137-14 5 Not Available [facility] (Lab) [address] [place], [address], 01/19/2023 17:57:09 01/20/20 23 01/19/2023 COMPR EHENS SALINA METAB OLIC PANEL potassium 4.5 mmol/ L 3.5-5. 1 Not Available [facility] (Lab) [address] [place], [address], 01/19/2023 17:57:09 01/20/20 23 01/19/2023 COMPR EHENS SALINA METAB OLIC PANEL chloride 105 mmol/ L 98-107 Not Available [facility] (Lab) [address] [place], [address], 01/19/2023 17:57:09 01/20/20 23 01/19/2023 COMPR EHENS SALINA METAB OLIC PANEL carbon dioxide 29 mmol/ L 22-30 Not Available [facility] (Lab) [address] [place], [address], 01/19/2023 17:57:09 01/20/20 23 01/19/2023 COMPR EHENS SALINA METAB OLIC PANEL anion gap 10.5 mmol/ L 14-22 low Not Available [facility] (Lab) [address] [place], [address], 01/19/2023 17:57:09 01/20/20 23 01/19/2023 COMPR EHENS SALINA METAB OLIC PANEL glucose 76 mg/dL 70-99 Not Available [facility] (Lab) [address] [place], [address], 01/19/2023 17:57:09 01/20/20 23 01/19/2023 COMPR EHENS SALINA METAB OLIC PANEL BUN 9 mg/dL 8-19 Not Available [facility] (Lab) [address] [place], [address], 01/19/2023 17:57:09 01/20/20 23 01/19/2023 COMPR EHENS SALINA METAB OLIC PANEL creatinine 0.78 mg/dL 0.66-1 .25 Not Available [facility] (Lab) [address] [place], [address], 01/19/2023 17:57:09 01/20/20 23 01/19/2023 COMPR EHENS SALINA METAB OLIC PANEL GFR >60 Refer ence Range : Muir ge GFR Healt hy Adult : >60 [...] or ethni c subgr oups, such as Hisin nics. Outsi de the valid ated zak [...] s/kdo qi/gf r_cal culat or Not Available [facility] (Lab) [address] [place], [address], 01/19/2023 17:57:09 01/20/20 23 01/19/2023 COMPR EHENS SALINA METAB OLIC PANEL alkaline phosphatase 66 U/L 38-126 Not Available [facility] (Lab) [address] [place], [address], 01/19/2023 17:57:09 01/20/20 23 01/19/2023 COMPR EHENS SALINA METAB OLIC PANEL alanine aminotransfe rase 24 U/L 0-50 Not Available [facility] (Lab) [address] [place], [address], 01/19/2023 17:57:09 01/20/20 23 01/19/2023 COMPR EHENS SALINA METAB OLIC PANEL aspartate aminotransfe rase 22 U/L 15-46 Not Available [facility] (Lab) [address] [place], [address], 01/19/2023 17:57:09 01/20/20 23 01/19/2023 COMPR EHENS SALINA METAB OLIC PANEL bilirubin, total 0.80 mg/dL 0.20-1 .30 Not Available [facility] (Lab) [address] [place], [address], 01/19/2023 17:57:09 01/20/20 23 01/19/2023 COMPR EHENS SALINA METAB OLIC PANEL calcium 9.8 mg/dL 8.4-10 .2 Not Available [facility] (Lab) [address] [place], [address], 01/19/2023 17:57:09 01/20/20 23 01/19/2023 COMPR EHENS SALINA METAB OLIC PANEL total protein 6.7 g/dL 6.3-8. 2 Not Available [facility] (Lab) [address] [place], [address], 01/19/2023 17:57:09 01/20/20 23 01/19/2023 COMPR EHENS SALINA METAB OLIC PANEL albumin 4.0 g/dL 3.0-4. 4 Not Available [facility] (Lab) [address] [place], [address], 01/19/2023 17:57:09 01/20/20 23 01/19/2023 COMPR EHENS SALINA METAB OLIC PANEL globulin 2.7 g/dL 2.6-4. 2 Not Available [facility] (Lab) [address] [place], [address], 01/19/2023 17:57:09 01/20/20 23 01/19/2023 COMPR EHENS SALINA METAB OLIC PANEL A/G ratio 1.5 ratio 1.0-2. 0 Not Available [facility] (Lab) [address] [place], [address], 01/19/2023 17:57:09 01/20/20 23 01/19/2023 MAGNE SIUM magnesium 1.8 mg/dL 1.6-2. 3 Not Available [facility] (Lab) [address] [place], [address], 01/19/2023 17:57:13 01/18/20 23 01/17/2023 cardi ac monit or No observ ation record ed. [email or web address] [facility] [address], [place], [address], 02/19/2023 11:53:07 01/18/20 23 01/17/2023 cardi ac monit or No observ ation record ed. [facility] [address], [place], [address], 02/19/2023 11:53:08 02/12/20 23 02/11/2023 NM, myoca rdial perfu j luis scan No observ ation record ed. [facility] [address], [place], [address], 02/15/2023 15:50:52 02/17/19 24 02/11/2023 home sleep study No observ ation record ed. [facility] [address], [place], [address], 02/18/2023 08:44:21 02/22/19 24 02/22/2023 cardi ac monit or No observ ation record ed. [email or web address] [address], [place], [address], 02/23/2023 12:16:20 Result Notes None recorded. Problems Name Problem SNOMED Code Status Onset Date Resolution Date Notes Provider Name and Address Organization Details Recorded Time Benign essential hypertension 0161856 Active Not Available [facility] 3 01:42:13 Pure hypercholeste rolemia [id number] Active Not Available [facility] 3 01:42:13 Chronic rhinitis 22388262 Active Not Available [facility] 3 01:42:13 Intussuscepti on of intestine 97724680 Active 2022 Not Available [facility] 3 01:42:13 Problem Notes None recorded. Procedures Surgical History Date Name Laterality Status Provider Name and Address Organization Details Recorded Time excision of lipoma completed Not Available [facility] 04/14/2022 05:56:38 nasal septoplasty completed Not Available [facility] 04/14/2022 05:56:38 Imaging Results None recorded. [...] Updated DateTime 3 180.34 cm 27.6 kg/m2 68434.2 9 g 98.2 [degF] 68 /min 124/88 mm[Hg] BRANDO Hedrick [facility] [employer] [facility] 3 11:51:50 Date Recorded Body mass index (BMI) Body height Heart rate Body temperature Body weight Systolic And Diastolic Provider Name and Address Organization Details Last Updated DateTime 2 28.2 kg/m2 180.34 cm 72 /min 98.2 [degF] 36965.6 6 g 130/72 mm[Hg] Not Available [facility] 3 06:00:23 Date Recorded Body height Body mass index (BMI) Body weight Body temperature Heart rate Systolic And Diastolic Provider Name and Address Organization Details Last Updated DateTime 3 180.34 cm 28.5 kg/m2 94825.8 4 g 97.9 [degF] 69 /min 132/90 mm[Hg] BRANDO Hedrick [facility] [employer] [facility] 3 12:01:37 Date Recorded Body mass index (BMI) Body height Heart rate Body temperature Body weight Systolic And Diastolic Provider Name and Address Organization Details Last Updated DateTime 2 28 kg/m2 180.34 cm 84 /min 97.2 [degF] 03184.0 7 g 122/70 mm[Hg] Not Available [facility] 3 06:00:23 Date Recorded Body height Body mass index (BMI) Body weight Body temperature Heart rate Systolic And Diastolic Provider Name and Address Organization Details Last Updated DateTime 3 180.34 cm 28.2 kg/m2 41813.6 6 g 98.1 [degF] 62 /min 124/80 mm[Hg] BRANDO Hedrick [place] [facility] 3 12:13:34 Social History Question Answer Notes LastModified by Organizat ion Details LastModified Time Tobacco Smoking Status Never Smoker Not Available [facility] 04/14/2022 05:55:02 Do You Have An Advance Directive? No [id number] Information not available 04/14/2022 What Is Your Level Of Caffeine Consumption? Occasional [id number].[id number] Information not available 04/14/2022 In The 14 Days Before Symptom Onset, Have You Had Close Contact With A Laboratory-confi rmed COVID-19 While That Case Was Ill? No [id number] Information not available 04/14/2022 In The 14 Days Before Symptom Onset, Have You Had Close Contact With A Person Who Is Under Investigation For COVID-19 While That Person Was Ill? No MIGRATION.17186 [id number] Information not available 04/14/2022 What Type Of Diet Are You Following? REGULAR MIGRATION.11042 [id number] Information not available 04/14/2022 What Is The Highest Grade Or Level Of School You Have Completed Or The Highest Degree You Have Received? [id number] MIGRATION.31208 21432 Information not available 04/14/2022 Have There Been Any Changes To Your Family Or Social Situation? No MIGRATION.81098 [id number] Information not available 04/14/2022 What Is The Fluoride Status Of Your Home? Unknown MIGRATION.56808 [id number] Information not available 04/14/2022 Are There Any Guns Present In Your Home? No MIGRATION.09697 23905 Information not available 04/14/2022 Do You Use Insect Repellent Routinely? No MIGRATION.30756 [id number] Information not available 04/14/2022 Where Do You Live? [place]House MIGRATION.24653 05834 Information not available 04/14/2022 Do You Have A Medical Power Of Manager Search? No MIGRATION.30021 53172 Information not available 04/14/2022 What Was The Date Of Your Most Recent Tobacco Screening? 12/30/2022 Information not available 12/30/2022 Have You Ever Been Counseled For Unhealthy Alcohol Use? No MIGRATION.08404 93619 Information not available 04/14/2022 Do You Have Any Pets? Yes MIGRATION.29155 [id number] Information not available 04/14/2022 What Is Your Relationship Status? MIGRATION.43094 97021 Information not available 04/14/2022 Do You Use Your Seat Belt Or Car Seat Routinely? No MIGRATION.95584 93705 Information not available 04/14/2022 Do You Have Smoke And Carbon Monoxide Detectors In Your Home? Yes MIGRATION.77854 80943 Information not available 04/14/2022 Are You Passively Exposed To Smoke? No MIGRATION.79009 81750 Information not available 04/14/2022 Are There Any Smokers In Your House? No MIGRATION.79501 22221 Information not available 04/14/2022 What Types Of Sporting Activities Do You Participate In? None MIGRATION.00349 87512 Information not available 04/14/2022 Do You Use Sunscreen Routinely? No MIGRATION.97757 88117 Information not available 04/14/2022 Has Tobacco Cessation Counseling Been Provided? No Not Needed-ne pauly Smoked MIGRATION.20233 44924 Information not available 04/14/2022 Have You Recently Traveled Abroad? No MIGRATION.03920 62844 Information not available 04/14/2022 Do You Have Any Dietary Restrictions? No MIGRATION.27114 43365 Information not available 04/14/2022 Sex: Male Functional Status Question Answer Note LastModified by Organizat ion Details LastModified Time Do you use any illicit or recreational drugs? No [id number] 026 Information not available 04/14/2022 Do you or have you ever used any other forms of tobacco or nicotine? No MIGRATION.[id number] 026 Information not available 04/14/2022 What is your level of alcohol consumption? 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 Occasional [id number].[id number] 026 Information not available 04/14/2022 Mental Status Question Answer Note LastModified by [employer] ion Details LastModified Time Do you feel stressed (tense, restless, nervous, or anxious, or unable to sleep at night)? [id number] Information not available 04/14/2022 Family History Relationship Description Onset Age of this Age Resolved Age Notes LastModified by Organization Details LastModified Time Father Heart disease [id number] Not available 04/14/2022 05:56:41 Mother Heart disease [id number] [id number] Not available 04/14/2022 05:56:41 Medical History Condition Response NERVE DISEASE N BLINDNESS N RHEUMATIC FEVER N KIDNEY STONES N BLADDER PROBLEMS N MRSA N OTHER # 1 Y POLIO N LUNG DISEASE/DISORDER N HISTORY OF DRUG ABUSE N COPD N RADIATION / CHEMOTHERAPY N Other # 2 N BLOOD DISEASES N EAR OR HEARING PROBLEMS N MUMPS N SHINGLES N DEPRESSION (INCLUDING POST ) N BOWEL PROBLEMS N STROKE/TIA N ULCERS N BENIGN PROSTATIC HYPERPLASIA N MEASLES N HYPOTENSION N MYOCARDIAL INFARCTION N OBESITY N GERD/NAUSEA N ANEURYSM N URINARY/BLADDER/KIDNEY PROBLEMS N CORONARY ARTERY DISEASE (CAD) N ADDICTION CONCERNS N Impotence N ENDOMETRIOSIS N USE OF BLOOD THINNERS N SKIN [...] GLAUCOMA N FOOT PROBLEM N DIVERTICULITIS N SLEEP APNEA N [place] N INFECTIOUS DISEASE N PROSTATE N HEART ARRHYTHMIA N INSOMNIA N HIGH CHOLESTEROL / HYPERLIPIDEMIA Y HYPERTHYROIDISM N EYE PROBLEMS N EDEMA N CHRONIC PAIN SYNDROME N HYPOTHYROIDISM N CONSTIPATION N CAROTID BLOCKAGE N BACK / NECK PROBLEMS N HAVE YOU BEEN HOSPITALIZED OR SEEN IN [facility] IN THE PAST YEAR ? N ATHEROSCLEROSIS [...] Brain Problems N HERPES N DEMENTIA N SEIZURES/EPILEPSY N HEADACHES/MIGRAINES N VASCULAR DISEASE N PACEMAKER N Blood Disorder N DIZZINESS N KIDNEY DISEASE N HEART DISEASE/HEART PROBLEMS N MULTIPLE SCLEROSIS N CARDIAC ARRHYTHMIA N CANCER: SPECIFY N Gall Stones N ATRIAL FIBRILLATION N PULMONARY EMBOLISM N AUTOIMMUNE DISEASE N Immunizations Vaccine Type Date Status Note Provider Nam e and Address Organization Details Recorded Time COVID-19, mRNA, LNP-S, PF, 30 mcg/0.3 mL dose 06/22/2020 completed Not Available [facility] 3 01:42:13 COVID-19, mRNA, LNP-S, PF, 30 mcg/0.3 mL dose 06/01/2020 completed Not Available [facility] 3 01:42:13 Past Encounters Encounter ID Performer Location Encounter Start Date Encounter Closed Date Diagnosis/Indication Diagnosis SNOMED-CT Code Diagnosis ICD10 Code Diagnosis Note [id number] Maurice Costa MD [facility] Internal Med [facility] [address] [address] 10/21/2020 00:00:00 11/22/2020 10:51:11 [id number] [facility] _ATHENA_ IGRATION_ DEFAULT_1 _1 , 02/27/2021 00:00:00 02/27/2021 12:06:21 [id number] Maurice Costa MD [facility] Internal Med [facility] [address] [place] [address] 1 05/25/2021 00:00:00 06/14/2021 20:33:43 [id number] Maurice Costa MD [facility] Internal Med [facility] [address] [place] [address] 1 11/30/2021 00:00:00 11/30/2021 22:56:13 [id number] Maurice Costa MD [facility] Internal Med [facility] [address] [address] 1 05/18/2022 11:35:17 05/18/2022 12:45:54 Benign essential hypertension 8262665 I10 Screening for malignant neoplasm of colon 218096549 Z12.11 Screening for malignant neoplasm of prostate 444507546 Z12.5 Chronic rhinitis 6931117 6 J31.0 Pure hypercholesterolemia 777091636 E78.00 [id number] Maurice Costa MD [facility] Internal Med [facility] [address] [address] 11/16/2022 11:42:24 11/16/2022 12:58:05 Benign essential hypertension 7622269 I10 Pure hypercholesterolemia 534238403 E78.00 Chronic rhinitis 6860857 6 J31.0 [id number] Maurice Costa MD [facility] Internal Med [facility] [address] [place] [address] 12/30/2022 11:41:44 12/30/2022 13:06:48 Benign essential hypertension 7708802 I10 Pure hypercholesterolemia 910658914 E78.00 Intussusce ption of intestine 47220311 K56.1 Health Concerns Section Related Observation LastModified by Organization Detai ls LastModified Time None Recorded Concern Status LastModified by Organization Details LastModified Time None Recorded Advance Directives Directive N: Payers Insurance Date Sequence Insurance Name Policy Number Policy Mireles Covered Member ID Mireles Member ID Guarantor Name 05/18/2022 1 [place] [id number] Ger Kelly [id number] Roberto Kelly 05/18/2022 1 [employer] (PPO) Roberto Kelly [id number] Roberto Kelly 02/06/2023 1 [employer] (PPO) Roberto Kelly [id number] Roberto Kelly Notes Date Note Type Note Provider Name and Address Organization Details Recorded Time 05/18/2022 text/html Hypertension no headache or dizzinessRhinitis seems to be about the sameDyslipidemia trying to follow a low-fat diet Maurice Costa MD [address], [place] [address], [place], [address], [facility] 06/20/2022 21:33:39 11/16/2022 text/html Hypertension no headache or dizzinessRhinitis seems to be about the sameDyslipidemia trying to follow a low-fat diet Maurice Costa MD [address], [facility] [address], [place], [address], [facility] 11/28/2022 15:54:59 12/30/2022 text/html Abdominal pain intussusception that resolved he did have a colonoscopy I do not have the official results and he developed some atrial fibrillation while he was there was discharged on diltiazem and on aspirin Maurice Costa MD [address] [facility] [place] [address], [place], [address], [facility] 01/04/2023 11:46:15
--- OUTSIDE RECORDS SUMMARY | 2024-08-31 00:37 | XMS_ITS ---
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 If intended option is not [...] Not-Taking Encounters Encounter Location Date Provider Diagnosis [address] [address] 07/30/2023 Provider ADRI[place]N-[place] Other chronic allergic conjunctivitis [...] review an d pick correct strength-formulation from [facility] options. If intended option is not shown, [...] Notes * Aliza WAHLOB:1960 (64 yo M)Acc No.[id number]:07/30/2023 Patient: Ger ROBB Provider: Reina Mcpherson :1960 A ge:62 Y S ex:Male Date:07/30/2023 Address:[address] [place], [place] Pcp:Maurice Costa Subjective: * Chief Complaints: * 1 . [facility] Conversion Encounter. * Medical History: * Medications: [...] *Please review and pick correct strength-formulation from [facility] options. If intended option is not shown, discontinue and re-order from [employer]*. * Billing Information: * Visit Code: * Procedure Codes: * Electronic signature of Zaida SAMPSON-Migration on 08/31/2024 at 12:36 AM CDT Sign off status: Pending * Provider: Reina crain Migration Date: 07/30/2023 Generated for Guera swift/Eliel/Niki on: 08/31/2024 12:36 AM CDT
--- NOTE | 2024-08-31 09:02 | WPDANESEPPF ---
Anes - Initial Pre Proc Eval Procedure: Operation Date: 08/31/24 11:30 Proposed Procedures p Screening Colonoscopy - Shayne Christianson MD Date/Time: 08/31/24 09:02 Surgeon: Shayne Christianson MD Pre Op Diagnosis: Screening colon Patient Data Age: 64 Gender: M Height: 1.8 m Weight: 88.5 kg Allergies Allergy/AdvReac Type Severity Reaction Status Date / Time No Known Allergies Allergy Verified 08/31/24 10:22 Home Medications ?Medication ?Instructions ?Recorded ?Confirmed ?Type amlodipine 5 mg tablet 5 mg PO DAILY 03/10/21 04/04/24 History atorvastatin 10 mg tablet 10 mg PO DAILY 03/10/21 08/31/24 History fluticasone propionate 50 2 spray intranasal BID #16 mL 03/10/21 08/31/24 Rx mcg/actuation nasal spray,suspension (Flonase Allergy Relief) omeprazole 20 mg capsule,delayed 20 mg PO DAILY #7 caps 03/10/21 04/04/24 Rx release apixaban 5 mg tablet (Eliquis) 5 mg PO BID 04/04/24 08/31/24 History azelastine 137 mcg (0.1 %) nasal 1 spray intranasal DAILY PRN 04/04/24 08/31/24 History spray congestion cetirizine 10 mg tablet 10 mg PO DAILY 04/04/24 08/31/24 History diltiazem HCl 180 mg 180 mg PO DAILY 04/04/24 08/31/24 History capsule,extended release 24 hr losartan 25 mg tablet 25 mg PO DAILY 04/04/24 08/31/24 History magnesium oxide 400 mg PO BID 04/04/24 08/31/24 History Patient hx anesthesia problems: none Family hx anesthesia problems: none Results Review: All pre-operative results and documents have been reviewed as part of the pre-operative evaluation. [facility] Past Medical History Medical History (Updated 08/31/24 @ 09:02 by Alfonso Jay DO) Atrial fibrillation Hypertension Family History Family History Father Hypertension Mother Hypertension Social History Social History Smoking status: Never smoker Alcohol intake: never Substance use: never Substance use type: does not use Living arrangements: alone Spiritual care concerns: No Anes - Eval Final PreProcedure Day of Procedure 08/31/24 09:02 Patient weight: overweight Heart: regular rate and rhythm Lungs: clear to auscultation Airway: Mallampati scale class II Neurological: alert and oriented Last oral intake: >/= 8 hours ASA classification: III Emergent: no Anesthetic plan: proceed Anesthesia type and monitoring: general GIVS and standard monitoring Results Review: All pre-operative results and documents have been reviewed as part of the pre-operative evaluation. Informed Consent: The patient's anesthetic plan and its attendant risks and benefits were discussed with the patient/family/POA. Questions were solicited and answers provided to the satisfaction of the patient/family/POA.
[2024-08-31 10:15] VITALS: BP 150/92; PULSE 77; RESP 18; TEMP 36.8; O2SAT 99; BMI 25.6
[2024-08-31] MEDS: LACTATED RINGERS 1,000 ML 150 ML IV CONT (10:32)
--- NOTE | 2024-08-31 11:00 | PM.IMHP ---
H&P: HPI History of Present Illness Date/Time: 08/31/24 11:00 Chief Complaint: Screening colonoscopy Narrative: This is the patient's 2nd colonoscopy. There are no GI symptoms and there is no family history of colorectal cancer. Review of Systems Review of Systems: All systems reviewed & are unremarkable except as noted in HPI and below PMFSH Past Medical History Medical History (Updated 08/31/24 @ 11:01 by Shayne Christianson MD) Atrial fibrillation Hypertension Family History Family History Father Hypertension Mother Hypertension Social History Social History Smoking status: Never smoker Alcohol intake: never Substance use: never Substance use type: does not use Living arrangements: alone Spiritual care concerns: No Meds Home Medications and Allergies Home Medications ?Medication ?Instructions ?Recorded ?Confirmed ?Type amlodipine 5 mg tablet 5 mg PO DAILY 03/10/21 04/04/24 History atorvastatin 10 mg tablet 10 mg PO DAILY 03/10/21 08/31/24 History fluticasone propionate 50 2 spray intranasal BID #16 mL 03/10/21 08/31/24 Rx mcg/actuation nasal spray,suspension (Flonase Allergy Relief) omeprazole 20 mg capsule,delayed 20 mg PO DAILY #7 caps 03/10/21 04/04/24 Rx release apixaban 5 mg tablet (Eliquis) 5 mg PO BID 04/04/24 08/31/24 History azelastine 137 mcg (0.1 %) nasal 1 spray intranasal DAILY PRN 04/04/24 08/31/24 History spray congestion cetirizine 10 mg tablet 10 mg PO DAILY 04/04/24 08/31/24 History diltiazem HCl 180 mg 180 mg PO DAILY 04/04/24 08/31/24 History capsule,extended release 24 hr losartan 25 mg tablet 25 mg PO DAILY 04/04/24 08/31/24 History magnesium oxide 400 mg PO BID 04/04/24 08/31/24 History Allergies Allergy/AdvReac Type Severity Reaction Status Date / Time No Known Allergies Allergy Verified 08/31/24 10:22 Vital Signs Vital Signs - 24 hr 08/31/24 10:15 Temperature 98.2 F Pulse Rate 77 Respiratory Rate 18 Blood Pressure 150/92 H Pulse Oximetry 99 Oxygen Delivery Room Air Exam Const: General: cooperative and healthy appearing Resp: Effort & Inspection: normal respiratory effort and able to speak in complete sentences Auscultation: clear to auscultation bilaterally Cardio: Rate: regular rate Rhythm: regular rhythm GI: Inspection: normal to inspection GI Palp: No No hepatosplenomegaly present Auscultation: normal bowel sounds Rectal Exam: deferred Skin: General skin exam: normal color Psych: Appearance: grossly normal Mental Status: mental status grossly normal Assessment and Plan Assessment and plan (1) Encounter for screening colonoscopy: Code(s): Z12.11 - Encounter for screening for malignant neoplasm of colon Status: Acute Assessment and Plan: The patient is deemed a good candidate for the procedure. Consent signed. Will proceed.
--- NOTE | 2024-08-31 11:26 | S_PTH ---
PATIENT: Roberto Kelly LOC: [facility]#:[id number] AGE/SX: 64/M ROOM: RE08/31/[address]: Shayne Christianson MD : 1960 BED: DIS: 08/31/2024 SPEC #: [id number] RECD: 08/31/24 11:54 STATUS: JAQUAN REQ #: [id number] JOVAN: 08/31/24 11:[address]: Shayne Christianson DEPT: [facility] Surgical RECD BY: Tasha Aguilar ENTERED: 08/31/24 11:54 SP TYPE: Surgical OTHR DR: Maurice Costa, Tissues: A - Colon Polypectomy Procedures: Hematoxylin and Eosin Stain Gross and Microscopic Level 4
[2024-08-31 11:31] VITALS: BP 99/62; PULSE 61; RESP 18; O2SAT 98
[2024-08-31 11:41] VITALS: BP 111/77; PULSE 57; RESP 18; O2SAT 100
[2024-08-31 11:51] VITALS: BP 122/87; PULSE 61; RESP 20; O2SAT 100
== END 2024-08-31 12:02 | disposition home or self-care (01) ==
PROVIDERS: PCP Internal Medicine; Referring Provider Internal Medicine; Visit Provider Internal Medicine Gastroenterology
PROC: 0DJD8ZZ Inspection of Lower Intestinal Tract, Via Natural or Artificial Opening Endoscopic (ICD-10-PCS; CPT 45378; principal; 2024-08-31 11:30)
DX: Z12.11 Encounter for screening for malignant neoplasm of colon (principal); K63.5 Polyp of colon; K57.30 Diverticulosis of large intestine without perforation or abscess without bleeding; K64.8 Other hemorrhoids
CPT/HCPCS: 45385; 88305; J2003; J2704; J7120